=== PATIENT | male | born 1965 | race Caucasian/White ===

== ENCOUNTER 2016-07-27 13:10 | Emergency (ER) | payer MEDICARE ==
[~2016-07-27] VITALS: Ht 188 cm; Wt 246.0 kg
[2016-07-27 13:15] VITALS: BP 234/138; PULSE 92; RESP 20; TEMP 98.2; O2SAT 93
[2016-07-27] MEDS ORDERED: CYMB60CA PO (13:32)
[2016-07-27] MEDS ORDERED: LEXA20TA PO (13:32)
[2016-07-27] MEDS ORDERED: ENAL20TA PO (13:32)
[2016-07-27] MEDS ORDERED: GABA800T PO (13:32)
[2016-07-27] MEDS ORDERED: METO50TA PO (13:32)
[2016-07-27] MEDS ORDERED: ASPI1TAB69 PO (13:32)
[2016-07-27] MEDS ORDERED: HORI600T PO (13:32)
[2016-07-27 13:33] VITALS: BP 160/104; PULSE 80; RESP 20; O2SAT 94
--- NOTE | 2016-07-27 13:43 | PD ---
HPI Chief Complaint: Injury Time Seen by Provider: 13:39 Travel History International Travel<30 days: No Contact w/Intl Traveler<30days: No Traveled to known affect area: No History of Present Illness HPI Patient presents with complaints of left shoulder pain after a fall. Patient reports tripping and falling to his left shoulder. Denies any head trauma or loss of consciousness. PFSH Past Medical History Atrial Fibrillation: Yes Depression: Yes Congestive Heart Failure: Yes Diminished Hearing: No Hypertension: Yes Neurologic: Yes (NEUROPATHY) Influenza Vaccination: Yes ?: Not Past Surgical History Cardiac Surgery: Yes (CARDIOVERSION) Cholecystectomy: Yes Tonsillectomy: Yes Social History Alcohol Use: Yes Tobacco Use: No Allergies-Medications (Allergen,Severity, Reaction): Coded Allergies: Clindamycin (Verified Allergy, Unknown, 07/27/16) Erythromycin (Verified Allergy, Unknown, 07/27/16) Red Dyes - Various (Verified Allergy, Unknown, 07/27/16) Reported Meds & Prescriptions Reported Meds & Active Scripts Active Reported Lexapro (Escitalopram Oxalate) 20 Mg Tab 20 Mg PO DAILY Horizant ER (Gabapentin ER) 600 Mg Armando 1,600 Mg PO 1700 PRN Metoprolol Tartrate 50 Mg Tab 50 Mg PO BID Enalapril (Enalapril Maleate) 20 Mg Tab 20 Mg PO BID Aspirin 81 Mg Tabdr 81 Mg PO DAILY Cymbalta DR (Duloxetine HCl) 60 Mg Capdr 60 Mg PO DAILY Gabapentin 800 Mg Tab 3,200 Mg PO HS Review of Systems General / Constitutional: No: Fever Eyes: No: Visual changes HENT: No: Headaches Cardiovascular: No: Chest Pain or Discomfort Respiratory: No: Shortness of Breath Gastrointestinal: No: Abdominal Pain Genitourinary: No: Dysuria Musculoskeletal: No: Pain Skin: No Rash Neurologic: No: Weakness Psychiatric: No: Depression Endocrine: No: Polydipsia Hematologic/Lymphatic: No: Easy Bruising Physical Exam Narrative GENERAL: Well-nourished, well-developed patient. SKIN: Warm and dry. HEAD: Normocephalic. EYES: No scleral icterus. No injection or drainage. NECK: Supple, trachea midline. No JVD or lymphadenopathy. CARDIOVASCULAR: Regular rate and rhythm without murmurs, gallops, or rubs. RESPIRATORY: Breath sounds equal bilaterally. No accessory muscle use. GASTROINTESTINAL: Abdomen soft, non-tender, nondistended. MUSCULOSKELETAL: No cyanosis, or edema. BACK: Nontender without obvious deformity. No CVA tenderness. Examination left shoulder reveals no crepitus no erythema edema or bony abnormalities, discomfort with elevation over 90 Data Data Last Documented VS Vital Signs Date Time Temp Pulse Resp B/P Pulse Ox O2 Delivery O2 Flow Rate FiO2 07/27/16 13:33 80 20 160/104 94 Room Air 07/27/16 13:15 98.2 Orders Shoulder, Limited(2vws) (07/27/16 ) MDM Medical Decision Making Medical Screen Exam Complete: Yes Emergency Medical Condition: Yes Differential Diagnosis Left shoulder strain, musculoskeletal pain, fall risk Narrative Course Assessment and plan discussed with patient and at bedside. Discussed findings of the x-ray. Patient opted for observation. Diagnosis Primary Impression: Contusion of left shoulder Qualified Code: S40.012A - Contusion of left shoulder, initial encounter Patient Instructions: General Instructions Additional Instructions: Sling for comfort, pain medication as prescribed, follow-up with PCP, his symptoms persist consider CT of the shoulder Med/Other Pt SpecificInfo: Prescription(s) given Disposition: 01 DISCHARGE HOME Condition: Good Antonio Allen MD Jul 27, 2016 13:42
--- NOTE | 2016-07-27 15:41 | RADHPO ---
EXAM DATE/TIME: 07/27/2016 14:37 [facility] COMPARISON: No previous studies available for comparison. INDICATIONS : Fell, left shoulder pain MEDICAL HISTORY : Congestive heart failure. a fib SURGICAL HISTORY : None. ENCOUNTER: Initial ACUITY: 1 day PAIN SCORE: 9/10 LOCATION: Left shoulder FINDINGS: There is a lucency in the bony glenoid, possibly a fracture. This may need to be confirmed with CT. P roximal humerus appears intact. A.c. joint intact. CONCLUSION: 1. Lucency in the glenoid on the AP view. Cannot exclude a nondisplaced fracture. This would be lenore r evaluated with CT. Errol Iyer MD on July 27, 2016 at 15:37 Board Certified Radiologist. This report was verified electronically.
[2016-07-27] MEDS ORDERED: HYDR-3516 PO (15:53)
== END 2016-07-27 16:03 | disposition home or self-care (01) ==
LOC: PHED 13:10
DX: S40.012A Contusion of left shoulder, initial encounter (principal); I48.91 Unspecified atrial fibrillation; I50.9 Heart failure, unspecified; I10 Essential (primary) hypertension; W18.09XA Striking against other object with subsequent fall, initial encounter; Y93.9 Activity, unspecified; Y92.9 Unspecified place or not applicable; Y99.8 Other external cause status
CPT/HCPCS: 73030; 99283

== ENCOUNTER 2017-01-14 11:04 | Inpatient (IN) | payer OTHER, MEDICARE ==
[2017-01-14] VITALS (7 sets, daily range): BP systolic 116–203; BP diastolic 65–123; PULSE 66–108; RESP 18–22; TEMP 96.3–98.6; O2SAT 85–98
[~2017-01-14] VITALS: Ht 188 cm; Wt 181.4 kg
[~2017-01-14 11:04] MED LIST: ASPI1TAB69 PO; CYMB60CA PO; ENAL20TA PO; GABA800T PO; HORI600T PO; HYDR-3516 PO; LEXA20TA PO; METO50TA PO
[2017-01-14] MEDS ORDERED: GABA600T PO (11:25)
[2017-01-14] MEDS ORDERED: METO100T9 PO (11:25)
[2017-01-14] MEDS ORDERED: OXYC1TAB35 PO (11:25)
[2017-01-14] MEDS ORDERED: ASPI81CH37 CHEW (11:25)
[2017-01-14] MEDS ORDERED: DULO1CAP3 PO (11:25)
--- NOTE | 2017-01-14 11:36 | PD ---
HPI Chief Complaint: Respiratory Symptoms Time Seen by Provider: 11:32 Travel History International Travel<30 days: No Contact w/Intl Traveler<30days: No Traveled to known affect area: No History of Present Illness HPI 51-year-old male with history of hypertension, CHF, A. fib, smoking, asthma, sleep apnea on BiPAP, presents to the ER today because he has had shortness of breath starting on Thursday, worse with laying down, nausea. He is to chest pain , fevers, or any other symptoms. He has not been taking his water pills at least for several months. Modifying Factors: Worse with laying down Associated Signs & Symptoms: Shortness of breath Risk Factors: CHF history PFSH Past Medical History Atrial Fibrillation: Yes Depression: Yes Cardiovascular Problems: Yes (H/O cardioversion) Congestive Heart Failure: Yes Diminished Hearing: No Hypertension: Yes Neurologic: Yes (NEUROPATHY) Tetanus Vaccination: Unknown Influenza Vaccination: Yes Past Surgical History Cardiac Surgery: Yes (CARDIOVERSION) Cholecystectomy: Yes Tonsillectomy: Yes Social History Alcohol Use: No Tobacco Use: Yes (1-2 cigarettes/day) Substance Use: Yes (Marijuana) Allergies-Medications (Allergen,Severity, Reaction): Coded Allergies: clindamycin (Unverified Allergy, Severe, Hives, 01/14/17) erythromycin base (Unverified Allergy, Severe, Hives, 01/14/17) red dye (Unverified Allergy, Unknown, 01/14/17) Reported Meds & Prescriptions Reported Meds & Active Scripts Active Reported Duloxetine DR (Duloxetine HCl) 60 Mg Capdr 60 Mg PO BID Oxycodone-Acetaminophen 7.5-325 mg Tab 1 Tab PO BID Aspirin Low Dose (Aspirin) 81 Mg Chew 81 Mg CHEW DAILY Metoprolol Succinate ER 24 HR (Metoprolol Succinate) 100 Mg Tab 100 Mg PO BID Gabapentin 600 Mg Tab 1,200 Mg PO BID Lexapro (Escitalopram Oxalate) 20 Mg Tab 20 Mg PO DAILY Enalapril (Enalapril Maleate) 20 Mg Tab 10 Mg PO BID Review of Systems Except as stated in HPI: all other systems reviewed are Neg Physical Exam Narrative GENERAL: Well-developed morbidly obese middle age white male patient currently in mild respiratory distress. Awake and oriented 3. SKIN: Focused skin assessment warm/dry. HEAD: Atraumatic. Normocephalic. EYES: Pupils equal and round. No scleral icterus. No injection or drainage. ENT: No nasal bleeding or discharge. Mucous membranes pink and moist. NECK: Trachea midline. No JVD. CARDIOVASCULAR: Regular rate and rhythm. No murmur appreciated. RESPIRATORY: Mild accessory muscle use. Decreased throughout without wheezing. Breath sounds equal bilaterally. GASTROINTESTINAL: Abdomen soft, non-tender, nondistended. Hepatic and splenic margins not palpable. MUSCULOSKELETAL: No obvious deformities. No clubbing. No cyanosis. No edema. NEUROLOGICAL: Awake and alert. No obvious cranial nerve deficits. Motor grossly within normal limits. Normal speech. PSYCHIATRIC: Appropriate mood and affect; insight and judgment normal. Data Data Last Documented VS Vital Signs Date Time Temp Pulse Resp B/P (MAP) Pulse Ox O2 Delivery O2 Flow Rate FiO2 01/14/17 13:35 94 18 194/123 (146) 95 Nasal Cannula 4.00 01/14/17 11:15 98.6 Orders Orders Complete Blood Count With Diff (01/14/17 11:32) Comprehensive Metabolic Panel (01/14/17 11:32) B-Type Natriuretic Peptide (01/14/17 11:32) Act Partial Throm Time (Ptt) (01/14/17 11:32) Prothrombin Time / Inr (Pt) (01/14/17 11:32) Ckmb (Isoenzyme) Profile (01/14/17 11:32) Troponin I (01/14/17 11:32) Iv Access Insert/Monitor (01/14/17 11:32) Ecg Monitoring (01/14/17 11:32) Oximetry (01/14/17 11:32) Oxygen Administration (01/14/17 11:32) Chest, Single Ap (01/14/17 11:32) Sodium Chloride 0.9% Flush (Ns Flush) (01/14/17 11:45) Nitroglycerin 2% Oint (Nitroglycerin 2% (01/14/17 11:45) Furosemide Inj (Lasix Inj) (01/14/17 12:45) Clonidine (Catapres) (01/14/17 14:15) Admit Order (Ed Use Only) (01/14/17 14:45) Labs Laboratory Tests Test 01/14/17 11:55 01/14/17 12:54 White Blood Count 10.6 TH/MM3 Red Blood Count 5.11 MIL/MM3 Hemoglobin 13.6 GM/DL Hematocrit 40.8 % Mean Corpuscular Volume 79.8 FL Mean Corpuscular Hemoglobin 26.6 PG Mean Corpuscular Hemoglobin Concent 33.4 % Red Cell Distribution Width 14.7 % Platelet Count 157 TH/MM3 Mean Platelet Volume 10.2 FL Neutrophils (%) (Auto) 79.0 % Lymphocytes (%) (Auto) 11.0 % Monocytes (%) (Auto) 4.0 % Eosinophils (%) (Auto) 2.9 % Basophils (%) (Auto) 3.1 % Neutrophils # (Auto) 8.4 TH/MM3 Lymphocytes # (Auto) 1.2 TH/MM3 Monocytes # (Auto) 0.4 TH/MM3 Eosinophils # (Auto) 0.3 TH/MM3 Basophils # (Auto) 0.3 TH/MM3 CBC Comment DIFF FINAL Differential Comment B-Type Natriuretic Peptide 424 PG/ML Prothrombin Time 12.4 SEC Prothromb Time International Ratio 1.1 RATIO Activated Partial Thromboplast Time 31.9 SEC Blood Urea Nitrogen 19 MG/DL Creatinine 1.40 MG/DL Random Glucose 110 MG/DL Total Protein 8.4 GM/DL Albumin 3.7 GM/DL Calcium Level 8.6 MG/DL Alkaline Phosphatase 83 U/L Aspartate Amino Transf (AST/SGOT) 17 U/L Alanine Aminotransferase (ALT/SGPT) 16 U/L Total Bilirubin 1.7 MG/DL Sodium Level 141 MEQ/L Potassium Level 3.7 MEQ/L Chloride Level 105 MEQ/L Carbon Dioxide Level 27.6 MEQ/L Anion Gap 8 MEQ/L Estimat Glomerular Filtration Rate 53 ML/MIN Total Creatine Kinase 59 U/L Troponin I LESS THAN 0.02 NG/ML MDM Medical Decision Making Medical Screen Exam Complete: Yes Emergency Medical Condition: Yes Medical Record Reviewed: Yes Interpretation(s) EKG shows A. fib at a rate of 96 bpm with no signs of acute ST-T changes. Laboratory Tests Test 01/14/17 11:55 01/14/17 12:54 Mean Corpuscular Volume 79.8 FL (80.0-100.0) Mean Corpuscular Hemoglobin 26.6 PG (27.0-34.0) Neutrophils (%) (Auto) 79.0 % (16.0-70.0) Basophils (%) (Auto) 3.1 % (0.0-2.0) Neutrophils # (Auto) 8.4 TH/MM3 (1.8-7.7) Basophils # (Auto) 0.3 TH/MM3 (0-0.2) B-Type Natriuretic Peptide 424 PG/ML (0-100) Prothrombin Time 12.4 SEC (9.8-11.6) Activated Partial Thromboplast Time 31.9 SEC (24.3-30.1) Blood Urea Nitrogen 19 MG/DL (7-18) Creatinine 1.40 MG/DL (0.60-1.30) Random Glucose 110 MG/DL (74-106) Total Protein 8.4 GM/DL (6.4-8.2) Total Bilirubin 1.7 MG/DL (0.2-1.0) Estimat Glomerular Filtration Rate 53 ML/MIN (>89) Troponin I LESS THAN 0.02 NG/ML Last 24 hours Impressions Chest X-Ray 01/14/17 1132 Signed Impressions: Service Date/Time: Saturday, January 14, 2017 11:35 - CONCLUSION: 1. Cardiomegaly. 2. Minimal central pulmonary vascular congestion. 3. No acute focal pulmonary infiltrate to suggest pneumonia. Duncan Macario MD Differential Diagnosis Shortness of breath: Dysrhythmias versus CHF exacerbation versus asthma attack versus pneumonia versus anxiety attack Narrative Course Chest x-ray shows signs of vascular congestion. Nitroglycerin and Lasix was given in the ER. Patient had mild improvements but his blood pressure remains fairly elevated. At this point, I suspect that the hypertension is also an issue. Patient admits that he has not been taking his medications regularly because he has been trying to save money. At this point, patient was given clonidine and my plan would be to admit him for further treatment. Case is discussed with Dr. Nino for admission. Diagnosis Primary Impression: Hypertensive urgency Additional Impression: CHF exacerbation Admitting Information Admitting Physician Requests: Admit Genaro Shay MD Jan 14, 2017 11:36
[2017-01-14] MEDS ORDERED: NITROGLYCERIN 2% OINT 1 GM PACKET TOPICAL ONE (11:45)
[2017-01-14] MEDS ORDERED: SODIUM CHLORIDE 0.9% FLUSH 10 ML FLUSH IVF PRN (11:45)
[2017-01-14 12:08] LABS: AUTOMATED NEUTROPHIL # 8.4 TH/MM3 (1.8-7.7); BASOPHIL # 0.3 TH/MM3 (0-0.2); BASOPHIL % 3.1 % (0.0-2.0); EOSINOPHIL # 0.3 TH/MM3 (0-0.4); EOSINOPHIL % 2.9 % (0.0-4.0); HEMATOCRIT 40.8 % (39.0-51.0); LYMPHOCYTE # 1.2 TH/MM3 (1.0-4.8); MEAN CELL VOLUME 79.8 FL (80.0-100.0); MEAN CORPUSCULAR HEMOGLOBIN 26.6 PG (27.0-34.0); MEAN CORPUSCULAR HGB CONC 33.4 % (32.0-36.0); PLATELET COUNT 157 TH/MM3 (150-450); RED BLOOD COUNT 5.11 MIL/MM3 (4.50-5.90); RED CELL DISTRIBUTION WIDTH 14.7 % (11.6-17.2); WHITE BLOOD COUNT 10.6 TH/MM3 (4.0-11.0)
[2017-01-14 12:19] LABS: HEMO FLAGS DIFF FINAL
--- NOTE | 2017-01-14 12:23 | RADRPT ---
EXAM DATE/TIME: 01/14/2017 11:35 [facility] COMPARISON: No previous studies available for comparison. INDICATIONS : Short of breath. MEDICAL HISTORY : Congestive heart failure. Afib SURGICAL HISTORY : None. ENCOUNTER: Initial ACUITY: 1 day PAIN SCORE: 0/10 LOCATION: Bilateral chest FINDINGS: The heart is enlarged. Minimal pulmonary vascular congestion is noted. No focal alveolar consolidat ion is noted. CONCLUSION: 1. Cardiomegaly. 2. Minimal central pulmonary vascular congestion. 3. No acute focal pulmonary infiltrate to suggest pneumonia. Duncan Macario MD on January 14, 2017 at 12:13 Board Certified Radiologist. This report was verified electronically.
[2017-01-14] MEDS ORDERED: FUROSEMIDE 40 MG/4 ML VIAL IV PUSH ONE (12:45)
[2017-01-14 13:44] LABS: CHLORIDE 105 MEQ/L (98-107); POTASSIUM 3.7 MEQ/L (3.5-5.1); SODIUM (NA) 141 MEQ/L (136-145)
[2017-01-14 13:48] LABS: APTT (PATIENT) 31.9 SEC (24.3-30.1); INTERNATIONAL NORMALIZED RATIO 1.1 RATIO; PROTHROMBIN TIME - PATIENT 12.4 SEC (9.8-11.6)
[2017-01-14 13:49] LABS: ANION GAP 8 MEQ/L (5-15); BICARBONATE 27.6 MEQ/L (21.0-32.0)
[2017-01-14 13:50] LABS: BLOOD UREA NITROGEN 19 MG/DL (7-18)
[2017-01-14 13:52] LABS: ALT (GPT) 16 U/L (12-78)
[2017-01-14 13:53] LABS: AST (GOT) 17 U/L (15-37); GLOMERULAR FILTRATION RATE 53 ML/MIN (>89)
[2017-01-14 13:54] LABS: TOTAL BILIRUBIN ADULT 1.7 MG/DL (0.2-1.0)
[2017-01-14 13:55] LABS: ALKALINE PHOSPHATASE 83 U/L (45-117)
[2017-01-14 13:56] LABS: CREATINE KINASE 59 U/L (39-308)
[2017-01-14] MEDS ORDERED: cloNIDine HCL 0.2 MG TAB PO ONE (14:15)
[2017-01-14] MEDS ORDERED: BISACODYL 10 MG SUPP RECTAL PRN (16:45)
[2017-01-14] MEDS ORDERED: NALOXONE HCL 0.4 MG/ML AMP IV PUSH PRN (16:45)
[2017-01-14] MEDS ORDERED: LACTULOSE SYRUP 20 GM/30 ML CUP PO PRN (16:45)
[2017-01-14] MEDS ORDERED: ACETAMINOPHEN 325 MG TAB PO PRN (16:45)
[2017-01-14] MEDS ORDERED: SODIUM CHLORIDE 0.9% FLUSH 10 ML FLUSH IV FLUSH PRN (16:45)
[2017-01-14] MEDS ORDERED: MAGNESIUM HYDROXIDE SUSP 30 ML CUP PO PRN (16:45)
[2017-01-14] MEDS ORDERED: SENNOSIDES 8.6 MG TAB PO PRN (16:45)
[2017-01-14] MEDS ORDERED: ONDANSETRON HCL 4 MG/2 ML VIAL IVP PRN (16:45)
--- NOTE | 2017-01-14 17:03 | HHI.HP ---
[facility] Primary Care Physician No Primary Care Physician Admission Diagnosis CHF exacerbation/hypertensive urgency Diagnoses: (1) Hypertensive urgency Diagnosis: Principal (2) CHF exacerbation Diagnosis: Principal (3) Atrial fibrillation Diagnosis: Secondary Chief Complaint: Shortness of breath Travel History International Travel<30 Days: No Contact w/Intl Traveler <30 Da: No Traveled to Known Affected Are: No History of Present Illness Written by Johnnie Lei, acting as scribe for Dr. Nino on 01/14/17 at 16:53. 51-year-old male with known history of hypertension, congestive heart failure, chronic back pain, chronic atrial fibrillation who presented to hospital because of shortness of breath. Patient states that he started developing shortness of breath for the last 2 days. Patient states that he has had a nonproductive cough, significant dyspnea on exertion, denies any chest pain, nausea, vomiting, diaphoresis. Patient has been noncompliant with his medications because of financial reasons. Medications that he is supposed to take twice a day he is only been taken once a day. He has been having worsening shortness of breath, he does fall quite frequently at home. He does have chronic atrial fibrillation and chads 2, as indicated by the patient that his previous primary care doctor states that due to his recurrent falls that he' ll be anticoagulated on aspirin, that too high risk for any Coumadin. Because the patient's respiratory status did not improve he came to emergency department and patient was found to be in hypertensive urgency with blood pressure 234/138. Patient was started on nitroglycerin, he was given clonidine and Lasix with improvement of his blood pressure. Further studies indicate patient has acute congestive heart failure with chest x-ray showing central vascular congestion, elevated BNP. Patient blood pressure still very labile. It was recommended by the ER physician that the patient should be observed in the hospital for further evaluation and management. Review of Systems Respiratory: COMPLAINS OF: Shortness of breath Musculoskeletal: COMPLAINS OF: Back pain Neurologic: COMPLAINS OF: Poor Balance Except as stated in HPI: all other systems reviewed are Neg Past Family Social History Past Medical History Hypertension Congestive heart failure Chronic atrial fibrillation Chronic back pain Past Surgical History Cardiac catheterization Cardioversion Tonsillectomy Cholecystectomy Reported Medications Reported Meds & Active Scripts Active Reported Duloxetine DR (Duloxetine HCl) 60 Mg Capdr 60 Mg PO BID Oxycodone-Acetaminophen 7.5-325 mg Tab 1 Tab PO BID Aspirin Low Dose (Aspirin) 81 Mg Chew 81 Mg CHEW DAILY Metoprolol Succinate ER 24 HR (Metoprolol Succinate) 100 Mg Tab 100 Mg PO BID Gabapentin 600 Mg Tab 1,200 Mg PO BID Lexapro (Escitalopram Oxalate) 20 Mg Tab 20 Mg PO DAILY Enalapril (Enalapril Maleate) 20 Mg Tab 10 Mg PO BID Allergies: Coded Allergies: clindamycin (Unverified Allergy, Severe, Hives, 01/14/17) erythromycin base (Unverified Allergy, Severe, Hives, 01/14/17) red dye (Unverified Allergy, Unknown, 01/14/17) Family History Reviewed is significant for mother having heart disease, requiring 2 open heart surgeries and multiple stents Social History Patient states that he quit smoking 2 years ago, however he does smoke a couple cigarettes every once in a while. Patient had been smoking up to a pack a cigarettes a day since he was a teenager. Denies any alcohol, does use marijuana for "pain control" Physical Exam Vital Signs Vital Signs Date Time Temp Pulse Resp B/P (MAP) Pulse Ox O2 Delivery O2 Flow Rate FiO2 01/14/17 15:25 87 18 138/109 (119) 96 Nasal Cannula 4.00 01/14/17 15:25 87 18 96 Nasal Cannula 4.00 01/14/17 13:35 94 18 194/123 (146) 95 Nasal Cannula 4.00 01/14/17 13:35 97 Nasal Cannula 4.00 01/14/17 12:32 89 22 159/110 (126) 94 Nasal Cannula 2.00 01/14/17 11:55 96 Nasal Cannula 2.00 01/14/17 11:15 108 22 Nasal Cannula 2.00 01/14/17 11:15 98.6 88 22 203/123 (149) 95 Physical Exam GENERAL: Well-developed, morbid obesity with BMI 67.9, in no acute distress. alert and orientated HEENT: Head is normocephalic without any lesions or masses noted. Facial features are symmetric. Eyes: Pupils equal round reactive to light. Extraocular muscles are intact. Conjunctivae were clear. Oropharyngeal: Pharynx without any erythema edema. Tongue is midline without deviation. Buccal mucosa is moist without any masses or lesions NECK: Supple without any masses. Trachea midline no deviation. No JVD, no bruits are appreciated CARDIAC: Regular rhythm, regular rate. S1/S2 are heard. No murmurs gallops or rubs. LUNGS: Clear to auscultation bilaterally. No wheeze, rhonchi or rales. No use of accessory muscles on inspiration or expiration. ABDOMEN: Soft, nontender. Nondistended. Bowel sounds heard in all 4 quadrants. No organomegaly or masses. Negative rebound, negative guarding EXTREMITIES: 2+ edema in bilateral lower extremities, pulses are equal bilaterally. No cyanosis or clubbing NEUROLOGY: Mood and affect appear appropriate. Cranial nerves II through XII grossly intact. Muscle strength 5/5 in upper and lower extremities bilaterally. Deep tendon reflexes are 2+ in upper and lower extremities bilaterally. Laboratory Laboratory Tests Test 01/14/17 11:55 01/14/17 12:54 White Blood Count 10.6 Red Blood Count 5.11 Hemoglobin 13.6 Hematocrit 40.8 Mean Corpuscular Volume 79.8 Mean Corpuscular Hemoglobin 26.6 Mean Corpuscular Hemoglobin Concent 33.4 Red Cell Distribution Width 14.7 Platelet Count 157 Mean Platelet Volume 10.2 Neutrophils (%) (Auto) 79.0 Lymphocytes (%) (Auto) 11.0 Monocytes (%) (Auto) 4.0 Eosinophils (%) (Auto) 2.9 Basophils (%) (Auto) 3.1 Neutrophils # (Auto) 8.4 Lymphocytes # (Auto) 1.2 Monocytes # (Auto) 0.4 Eosinophils # (Auto) 0.3 Basophils # (Auto) 0.3 CBC Comment DIFF FINAL Differential Comment B-Type Natriuretic Peptide 424 Prothrombin Time 12.4 Prothromb Time International Ratio 1.1 Activated Partial Thromboplast Time 31.9 Blood Urea Nitrogen 19 Creatinine 1.40 Random Glucose 110 Total Protein 8.4 Albumin 3.7 Calcium Level 8.6 Alkaline Phosphatase 83 Aspartate Amino Transf (AST/SGOT) 17 Alanine Aminotransferase (ALT/SGPT) 16 Total Bilirubin 1.7 Sodium Level 141 Potassium Level 3.7 Chloride Level 105 Carbon Dioxide Level 27.6 Anion Gap 8 Estimat Glomerular Filtration Rate 53 Total Creatine Kinase 59 Troponin I LESS THAN 0.02 Result Diagram: 01/14/17 1155 01/14/17 1254 Imaging Last Impressions Chest X-Ray 01/14/17 1132 Signed Impressions: Service Date/Time: Saturday, January 14, 2017 11:35 - CONCLUSION: 1. Cardiomegaly. 2. Minimal central pulmonary vascular congestion. 3. No acute focal pulmonary infiltrate to suggest pneumonia. MD Danial Ku VTE Risk Assessment Caprini VTE Risk Assessment: Mod/High Risk (score >= 2) Caprini Risk Assessment Model Point Value = 1 Point Value = 2 Point Value = 3 Point Value = 5 Age 41-60 Minor surgery BMI > 25 kg/m2 Swollen legs Varicose veins or History of unexplained or recurrent spontaneous Oral contraceptives or hormone replacement Sepsis (< 1 month) Serious lung disease, including pneumonia (< 1 month) Abnormal pulmonary function Acute myocardial infarction Congestive heart failure (< 1 month) History of inflammatory bowel disease Medical patient at bed rest Age 61-74 Arthroscopic surgery Major open surgery (> 45 min) Laparoscopic surgery (> 45 min) Malignancy Confined to bed (> 72 hours) Immobilizing plaster cast Central venous access Age >= 75 History of VTE Family history of VTE Factor V Leiden Prothrombin [id number] Lupus anticoagulant Anticardiolipin antibodies Elevated serum homocysteine Heparin-induced thrombocytopenia Other congenital or acquired thrombophilia Stroke (< 1 month) Elective arthroplasty Hip, pelvis, or leg fracture Acute spinal cord injury (< 1 month) Prophylaxis Regimen Total Risk Factor Score Risk Level Prophylaxis Regimen 0-1 Low Early ambulation 2 Moderate Order ONE of the following: *Sequential Compression Device (SCD) *Heparin 5000 units SQ BID 3-4 Higher Order ONE of the following medications: *Heparin 5000 units SQ TID *Enoxaparin/Lovenox 40 mg SQ daily (WT < 150 kg, CrCl > 30 mL/min) *Enoxaparin/Lovenox 30 mg SQ daily (WT < 150 kg, CrCl > 10-29 mL/min) *Enoxaparin/Lovenox 30 mg SQ BID (WT < 150 kg, CrCl > 30 mL/min) AND/OR *Sequential Compression Device (SCD) 5 or more Highest Order ONE of the following medications: *Heparin 5000 units SQ TID (Preferred with Epidurals) *Enoxaparin/Lovenox 40 mg SQ daily (WT < 150 kg, CrCl > 30 mL/min) *Enoxaparin/Lovenox 30 mg SQ daily (WT < 150 kg, CrCl > 10-29 mL/min) *Enoxaparin/Lovenox 30 mg SQ BID (WT < 150 kg, CrCl > 30 mL/min) AND *Sequential Compression Device (SCD) Assessment and Plan Problem List: (1) Hypertensive urgency ICD Code: I16.0 - Hypertensive urgency Status: Acute (2) CHF exacerbation ICD Code: I50.9 - Heart failure, unspecified Status: Acute (3) Atrial fibrillation ICD Code: I48.91 - Unspecified atrial fibrillation Assessment and Plan Hypertensive urgency, complicated by congestive heart failure, renal insufficiency Patient does have history of hypertension, blood pressure worse likely secondary to noncompliance with medications Will resume patient's home medications Clonidine/Apresoline as needed Acute congestive heart failure Patient does have chronic congestive heart failure, however we do not know if it is systolic versus diastolic, clinical findings of edema, BNP, chest x- ray with central pulmonary vascular congestion Will continue Lasix 40 mg IV twice daily Strict input and output Continue FRIDA inhibitor, beta natalee Obtain echocardiogram Continue to trend cardiac enzymes and EKGs Azotemia, unknown chronicity Could be from chronic kidney disease versus acute injury from hypertensive urgency Continue monitor renal function Chronic Atrial fibrillation, rate controlled Continue home medication we'll continue aspirin for anticoagulation. Patient is a high risk for falls DVT prevention Subcutaneous heparin Sequential compression devices This note was transcribed by mikayla Lei. I, Dr. Chacorta Méndez personally performed the history, physical exam, and medical decision making; and confirmed the accuracy of the information in the transcribed note. Authenticated by Dr. Chacorta Méndez on 01/14/17 at 17:09 Discussed Condition With Patient, at bedside, ER physician, nursing staff Physician Certification 2 Midnight Certification Type: Admission for Inpatient Services Order for Inpatient Services The services are ordered in accordance with Medicare regulations or non- Medicare payer requirements, as applicable. In the case of services not specified as inpatient-only, they are appropriately provided as inpatient services in accordance with the 2-midnight benchmark. Estimated LOS (days): 2 days is the estimated time the patient will need to remain in the hospital, assuming treatment plan goals are met and no additional complications. Post-Hospital Plan: Not yet determined Johnnie Lei Jan 14, 2017 17:03 Chacorta Macias MD Jan 14, 2017 17:11
[2017-01-14] MEDS ORDERED: cloNIDine HCL 0.1 MG TAB PO PRN (17:15)
[2017-01-14] MEDS ORDERED: hydrALAZINE HCL 20 MG/ML VIAL IV PUSH PRN (17:15)
[2017-01-14 17:24] LABS: CREATINE KINASE 61 U/L (39-308)
[2017-01-14] MEDS: FUROSEMIDE 40 MG/4 ML VIAL IV PUSH SCH (18:34)
[2017-01-14] MEDS: HEPARIN SODIUM - SQ 10,000 UNITS/ML VIAL SQ SCH ×2 (18:35→20:50)
[2017-01-14] MEDS: DULoxetine HCl DR 60 MG CAP PO SCH (20:49)
[2017-01-14] MEDS: SODIUM CHLORIDE 0.9% FLUSH 10 ML FLUSH IV FLUSH SCH (20:49)
[2017-01-14] MEDS: GABAPENTIN 300 MG CAP PO SCH (20:49)
[2017-01-14] MEDS: METOPROLOL SUCCINATE 50 MG EXTENDED RELEASE TAB PO SCH (20:49)
[2017-01-14] MEDS: DOCUSATE SODIUM 50 MG/SENNA 8.6 MG TAB PO SCH (20:49)
--- NOTE | 2017-01-14 21:00 | EKG ---
Date Performed: 01/14/2017 Time Performed: 11:24:20 PTAGE: 51 years EKG: ATRIAL FIBRILLATION MODERATE INTRAVENTRICULAR CONDUCTION DELAY ABNORMAL RHYTHM ECG NO PREVIOUS TRACING DOCTOR: Monica Elaine Interpretating Date/Time 01/14/2017 21:00:27
[2017-01-14 23:00] LABS: CREATINE KINASE 64 U/L (39-308)
[2017-01-15] VITALS (8 sets, daily range): BP systolic 116–166; BP diastolic 64–116; PULSE 71–91; RESP 20–24; TEMP 97–98.4; O2SAT 93–98
[2017-01-15] MEDS: HEPARIN SODIUM - SQ 10,000 UNITS/ML VIAL SQ SCH ×3 (05:16→21:32)
[2017-01-15 06:54] LABS: AUTOMATED NEUTROPHIL # 8.7 TH/MM3 (1.8-7.7); BASOPHIL % 0.1 % (0.0-2.0); EOSINOPHIL # 0.4 TH/MM3 (0-0.4); EOSINOPHIL % 3.1 % (0.0-4.0); HEMO FLAGS DIFF FINAL; LYMPHOCYTE # 1.9 TH/MM3 (1.0-4.8); MEAN CELL VOLUME 80.9 FL (80.0-100.0); MEAN CORPUSCULAR HEMOGLOBIN 26.7 PG (27.0-34.0); MONO % 5.4 % (0.0-8.0); NEUT % 75.4 % (16.0-70.0); PLATELET COUNT 150 TH/MM3 (150-450); RED BLOOD COUNT 4.95 MIL/MM3 (4.50-5.90); RED CELL DISTRIBUTION WIDTH 14.3 % (11.6-17.2); WHITE BLOOD COUNT 11.6 TH/MM3 (4.0-11.0)
[2017-01-15 06:58] LABS: CHLORIDE 103 MEQ/L (98-107); POTASSIUM 3.4 MEQ/L (3.5-5.1); SODIUM (NA) 141 MEQ/L (136-145)
[2017-01-15 07:02] LABS: ANION GAP 8 MEQ/L (5-15); BICARBONATE 30.1 MEQ/L (21.0-32.0); BLOOD UREA NITROGEN 25 MG/DL (7-18)
[2017-01-15 07:05] LABS: ALT (GPT) 16 U/L (12-78); AST (GOT) 16 U/L (15-37); GLOMERULAR FILTRATION RATE 46 ML/MIN (>89)
[2017-01-15 07:07] LABS: TOTAL BILIRUBIN ADULT 1.4 MG/DL (0.2-1.0)
[2017-01-15 07:08] LABS: ALKALINE PHOSPHATASE 78 U/L (45-117)
[2017-01-15] MEDS: METOPROLOL SUCCINATE 50 MG EXTENDED RELEASE TAB PO SCH ×2 (08:09→21:33)
[2017-01-15] MEDS: GABAPENTIN 300 MG CAP PO SCH ×2 (08:09→21:32)
[2017-01-15] MEDS: ASPIRIN 81 MG CHEW TAB CHEW SCH (08:10)
[2017-01-15] MEDS: ESCITALOPRAM OXALATE 20 MG TAB PO SCH (08:10)
[2017-01-15] MEDS: DOCUSATE SODIUM 50 MG/SENNA 8.6 MG TAB PO SCH ×2 (08:10→21:32)
[2017-01-15] MEDS: DULoxetine HCl DR 60 MG CAP PO SCH ×2 (08:10→21:32)
[2017-01-15] MEDS: SODIUM CHLORIDE 0.9% FLUSH 10 ML FLUSH IV FLUSH SCH ×2 (08:11→21:32)
[2017-01-15] MEDS: FUROSEMIDE 40 MG/4 ML VIAL IV PUSH SCH (08:11)
[2017-01-15] MEDS ORDERED: BARIATRIC ROLLA1 MIS (10:48)
[2017-01-15] MEDS ORDERED: POTASSIUM CHLORIDE 10 MEQ CONTROLLED RELEASE TAB PO ONE (11:00)
[2017-01-15] MEDS: DOXAZOSIN MESYLATE 2 MG TAB PO SCH (13:05)
[2017-01-15] MEDS: ACETAMINOPHEN/HYDROcodone 325 MG/7.5 MG TAB PO PRN ×2 (14:11→21:33)
--- NOTE | 2017-01-15 15:02 | HHI.PR ---
Subjective Remarks Deferred entry - patient seen at 11:45 am BP still elevated into the 160's systolic Patient states feels better denies cp/sob denies fevers/chills Objective Vitals Vital Signs Date Time Temp Pulse Resp B/P (MAP) Pulse Ox O2 Delivery O2 Flow Rate FiO2 01/15/17 12:00 97.6 85 20 128/92 (104) 97 01/15/17 08:20 95 Nasal Cannula 2.00 01/15/17 08:00 97.4 89 22 166/100 (122) 95 01/15/17 04:00 98.4 85 20 151/108 (122) 98 01/15/17 00:00 98.2 85 20 160/116 (131) 98 01/14/17 22:06 92 Nasal Cannula 2.00 01/14/17 20:00 83 01/14/17 20:00 97.5 89 20 160/114 (129) 98 01/14/17 18:00 96.3 66 18 116/65 (82) 94 01/14/17 16:50 01/14/17 15:25 87 18 138/109 (119) 96 Nasal Cannula 4.00 01/14/17 15:25 87 18 96 Nasal Cannula 4.00 I/O 01/14/17 01/14/17 01/14/17 01/15/17 01/15/17 01/15/17 07:00 15:00 23:00 07:00 15:00 23:00 Intake Total 240 ml Output Total 500 ml 200 ml Balance -500 ml 40 ml Intake Oral 240 ml Output Urine Total 500 ml 200 ml Result Diagram: 01/15/17 0550 01/15/17 0550 Imaging Last Impressions Chest X-Ray 01/14/17 1132 Signed Impressions: Service Date/Time: Saturday, January 14, 2017 11:35 - CONCLUSION: 1. Cardiomegaly. 2. Minimal central pulmonary vascular congestion. 3. No acute focal pulmonary infiltrate to suggest pneumonia. Duncan Macario MD Objective Remarks AAOx3, nad lying flat in bed S1S2 RRR, no MRG Diminished breath sounds bilaterally, however no rhonchi or wheezing auscultated. No edema in lower extremities No JVD Medications and IVs Current Medications Medications (Trade) Dose Ordered Sig/Yi Route Start Time Stop Time Status Last Admin (NS Flush) 2 ml UNSCH PRN IV FLUSH 01/14/17 16:45 (NS Flush) 2 ml BID IV FLUSH 01/14/17 21:00 01/15/17 08:11 (Tylenol) 650 mg Q4H PRN PO 01/14/17 16:45 (Zofran Inj) 4 mg Q6H PRN IVP 01/14/17 16:45 (Heparin Inj) 5,000 units Q8HR SQ 01/14/17 16:45 01/15/17 13:09 (Narcan Inj) 0.4 mg UNSCH PRN IV PUSH 01/14/17 16:45 (Daniella-Colace) 1 tab BID PO 01/14/17 21:00 01/15/17 08:10 (Milk Of Magnesia Liq) 30 ml Q12H PRN PO 01/14/17 16:45 (Senokot) 17.2 mg Q12H PRN PO 01/14/17 16:45 (Dulcolax Supp) 10 mg DAILY PRN RECTAL 01/14/17 16:45 (Lactulose Liq) 30 ml DAILY PRN PO 01/14/17 16:45 (Catapres) 0.1 mg Q6H PRN PO 01/14/17 17:15 (Apresoline Inj) 20 mg Q4H PRN IV PUSH 01/14/17 17:15 01/15/17 05:13 (Aspirin Chew) 81 mg DAILY CHEW 01/15/17 09:00 01/15/17 08:10 (Cymbalta Dr) 60 mg BID PO 01/14/17 21:00 01/15/17 08:10 (Lexapro) 20 mg DAILY PO 01/15/17 09:00 01/15/17 08:10 (Neurontin) 1,200 mg BID PO 01/14/17 21:00 01/15/17 08:09 (Toprol Xl) 100 mg BID PO 01/14/17 21:00 01/15/17 08:09 ([place] 7.5-325 Mg) 1 tab Q6H PRN PO 01/14/17 17:15 01/15/17 14:11 (Cardura) 2 mg DAILY PO 01/15/17 11:00 01/15/17 13:05 Urinary Catheter: No Vascular Central Line Catheter: No A/P Problem List: (1) Hypertensive urgency ICD Code: I16.0 - Hypertensive urgency Status: Acute (2) CHF exacerbation ICD Code: I50.9 - Heart failure, unspecified Status: Acute (3) Atrial fibrillation ICD Code: I48.91 - Unspecified atrial fibrillation Assessment and Plan Hypertensive urgency, complicated by congestive heart failure, renal insufficiency Patient does have history of hypertension, blood pressure worse likely secondary to noncompliance with medications Home medications resumed on admission Continue Clonidine/Apresoline as needed 01/15 blood pressure still elevated, continue metoprolol tartrate 100 mg by mouth twice a day, I will start the patient on Cardura 2 mg by mouth daily. Continue to monitor vital signs Acute congestive heart failure Patient does have chronic congestive heart failure, however we do not know if it is systolic versus diastolic, clinical findings of edema, BNP, chest x- ray with central pulmonary vascular congestion Started on Lasix 40 mg po BID on admission Strict input and output Obtain echocardiogram Continue to trend cardiac enzymes and EKGs 01/15 Echo pending. Dc Lasix since BUN and creatinine trending up. Consult cardiology. JAIMEE Possible CKD vs due to hypertensive urgency. Continue monitor renal function 01/15 Patient states he has had some kidney issues however does not know any details. Creatinine is trending up from 1.4 to 1.6. Check renal us and consult nephrology. Dc IV lasix. Chronic Atrial fibrillation, rate controlled Continue home medication Continue aspirin for anticoagulation. Patient is a high risk for falls and usually stays home by himself. Hyperglycemia Check include an A1c. DVT prevention Subcutaneous heparin Sequential compression devices Discharge Planning cardiology and nephrology consult pending Chacorta Macias MD Jan 15, 2017 15:02
--- NOTE | 2017-01-15 15:44 | ECHRPT ---
Indication: shortness of breath CONCLUSIONS Poor echocardiographic windows The left ventricle is not well visualized. This study was not technically sufficient to allow for evaluation of left ventricular diastolic func tion. The right ventricle was not well visualized. The right atrium is not well visualized. The aortic root and proximal ascending aorta are not well visualized. The aortic valve is not well visualized. The tricuspid valve is not well visualized. The pulmonary valve is not well visualized. BP: 166 / 100 HR: 122 Rhythm: Sinus Technical Quality:Very technically difficult study FINDINGS LEFT VENTRICLE The left ventricle is not well visualized. This study was not technically sufficient to allow for evaluation of left ventricular diastolic func tion. RIGHT VENTRICLE The right ventricle was not well visualized. LEFT ATRIUM The left atrial size is normal. RIGHT ATRIUM The right atrium is not well visualized. AORTA The aortic root and proximal ascending aorta are not well visualized. MITRAL VALVE Structurally normal mitral valve. AORTIC VALVE The aortic valve is not well visualized. TRICUSPID VALVE The tricuspid valve is not well visualized. PULMONARY VALVE The pulmonary valve is not well visualized. VESSELS The inferior vena cava is normal in size. Hilario Moss MD (Electronically Signed) Final Date:15 January 2017 15:42
[2017-01-15 16:21] LABS: HEMOGLOBIN A1a 0.9 %; HEMOGLOBIN A1b 0.9 %; HEMOGLOBIN Ao 86.2 %; HEMOGLOBIN F 0.8 %; HEMOGLOBIN LA1C 1.9 %; HEMOGLOBIN P3 3.6 %
--- NOTE | 2017-01-15 16:39 | RADRPT ---
EXAM DATE/TIME: 01/15/2017 15:33 [facility] COMPARISON: No previous studies available for comparison. INDICATIONS : Abnormal labs. MEDICAL HISTORY : Congestive heart failure. Head trama. Headache. Neuropathy. A.FIB. Hypertension. Asthma. Dyspnea. Kidney stones. UTI. Prostate problems. Carpal tunnel. PTSD. Depression. SURGICAL HISTORY : Tonsillectomy. Cholecystectomy. Cardiac cath. ENCOUNTER: Initial ACUITY: 1 day PAIN SCORE: 2/10 LOCATION: Bilateral flank MEASUREMENTS: RIGHT KIDNEY: 11.3 x 6.3 x 6.4 cm LEFT KIDNEY: 12.2 x 5.9 x 6.0 cm FINDINGS: RIGHT KIDNEY: Renal cortex is normal in thickness and echotexture. No hydronephrosis, or mass. Echogenic 4 by 8mm area in the upper pole the right kidney without demonstrable shadowing still could be a renal calculu s LEFT KIDNEY: Renal cortex is normal in thickness and echotexture. No hydronephrosis, stone, or mass. BLADDER: Not identified secondary to I suspect under distention and overlying bowel gas. CONCLUSION: Nonvisualization of the bladder. Questionable right renal stone. No evidence of hydronephrosis or obs truction Jared Silverio MD on January 15, 2017 at 16:37 Board Certified Radiologist. This report was verified electronically.
--- NOTE | 2017-01-15 17:51 | EKG ---
Date Performed: 01/14/2017 Time Performed: 22:13:23 PTAGE: 51 years EKG: ATRIAL FIBRILLATION INTRAVENTRICULAR CONDUCTION DELAY POSSIBLE LEFT VENTRICULAR HYPERTROPHY Compared to prior tracing no significant change ABNORMAL ECG PREVIOUS TRACING : 01/14/2017 16.50 DOCTOR: Marbin Galarza Interpretating Date/Time 01/15/2017 17:50:20
--- NOTE | 2017-01-15 17:51 | EKG ---
Date Performed: 01/14/2017 Time Performed: 16:50:34 PTAGE: 51 years EKG: ATRIAL FIBRILLATION BORDERLINE LEFT AXIS DEVIATION INTRAVENTRICULAR CONDUCTION DELAY POSSIB LE LEFT VENTRICULAR HYPERTROPHY Compared to prior tracing no significant change ABNORMAL ECG PREVIOUS TRACING : 01/14/2017 11.24 DOCTOR: Marbin Galarza Interpretating Date/Time 01/15/2017 17:49:57
[2017-01-16] VITALS (9 sets, daily range): BP systolic 106–143; BP diastolic 73–104; PULSE 59–86; RESP 16–20; TEMP 95.7–98.4; O2SAT 91–98
[2017-01-16] MEDS: HEPARIN SODIUM - SQ 10,000 UNITS/ML VIAL SQ SCH ×3 (05:42→20:47)
[2017-01-16 07:06] LABS: AUTOMATED NEUTROPHIL # 5.8 TH/MM3 (1.8-7.7); BASOPHIL # 0.1 TH/MM3 (0-0.2); BASOPHIL % 0.7 % (0.0-2.0); EOSINOPHIL # 0.4 TH/MM3 (0-0.4); EOSINOPHIL % 4.8 % (0.0-4.0); HEMATOCRIT 38.6 % (39.0-51.0); HEMO FLAGS DIFF FINAL; MEAN CELL VOLUME 82.3 FL (80.0-100.0); MEAN CORPUSCULAR HGB CONC 32.8 % (32.0-36.0); MONO % 6.7 % (0.0-8.0); NEUT % 64.8 % (16.0-70.0); PLATELET COUNT 192 TH/MM3 (150-450); RED BLOOD COUNT 4.69 MIL/MM3 (4.50-5.90); RED CELL DISTRIBUTION WIDTH 14.9 % (11.6-17.2); WHITE BLOOD COUNT 8.9 TH/MM3 (4.0-11.0)
[2017-01-16 07:14] LABS: CHLORIDE 103 MEQ/L (98-107); POTASSIUM 3.8 MEQ/L (3.5-5.1); SODIUM (NA) 141 MEQ/L (136-145)
[2017-01-16 07:18] LABS: ANION GAP 8 MEQ/L (5-15); BICARBONATE 30.2 MEQ/L (21.0-32.0); BLOOD UREA NITROGEN 32 MG/DL (7-18)
[2017-01-16 07:21] LABS: ALT (GPT) 13 U/L (12-78); AST (GOT) 16 U/L (15-37); GLOMERULAR FILTRATION RATE 43 ML/MIN (>89)
[2017-01-16 07:23] LABS: TOTAL BILIRUBIN ADULT 0.9 MG/DL (0.2-1.0)
[2017-01-16 07:24] LABS: ALKALINE PHOSPHATASE 76 U/L (45-117)
--- NOTE | 2017-01-16 07:52 | MB ---
cc: YOSI TODD MD DATE OF CONSULTATION: 01/15/2017 REASON FOR CONSULTATION CHF. HISTORY OF PRESENT ILLNESS Mr. Black is a 51-year-old man who has extreme morbid obesity, atrial fibrillation and hypertension. He has been noncompliant with his medication secondary to cost. He subsequently presented with a hypertensive crisis. Cardiology was subsequently consulted. The patient also reports that he has had chronic atrial fibrillation since he was a teenager and is anticoagulated with aspirin secondary to frequent falls. PAST MEDICAL HISTORY 1. Atrial fibrillation. 2. Hypertension. 3. CHF. The patient had a cardiac catheterization 2-3 years ago with normal coronaries. He does report a low EF at that time. Subsequent studies did show recovery of function with metoprolol. 4. Morbid obesity, greater than 500 pounds. MEDICATIONS Outpatient medications include: 1. Duloxetine. 2. Oxycodone. 3. Aspirin. 4. Metoprolol ER 100 mg b.i.d. 5. Gabapentin. 6. Lexapro. 7. Enalapril 10 mg b.i.d. ALLERGIES 1. CLINDAMYCIN. 2. ERYTHROMYCIN. 3. RED DYE. FAMILY HISTORY Positive for CAD. SOCIAL HISTORY The patient is a former smoker. REVIEW OF SYSTEMS The patient does complain of back pain and frequent falls. Other than what is reported in the HPI all 12 systems are negative. PHYSICAL EXAMINATION VITAL SIGNS: 97.0, 71, 24, 116/64. GENERAL: In general he is a morbidly obese man who has difficulty turning in bed. NECK: Free from JVD. LUNGS: Clear to auscultation. CARDIOVASCULAR: Irregularly irregular rhythm. No rubs or gallops are appreciated. ABDOMEN: Soft. EXTREMITIES: Free from edema. LABORATORY Creatinine 1.6. Serial troponins less than 0.02. IMPRESSIONS/RECOMMENDATIONS 1. Hypertension: The patient has been noncompliant with his meds. His metoprolol was restarted and he again has good blood pressure control. We did discuss the importance of this. On arrival his systolic blood pressure was 234. At this point I do not feel any further changes are required. 2. Atrial fibrillation: The patient does have a longstanding history of the same. His rate is well-controlled with the metoprolol. He is not on any anticoagulation beyond aspirin secondary to frequent falls. 3. Heart failure: The patient apparently has presented with shortness of breath. This again has responded to medication. I agree with holding off on any further diuretics until he is evaluated by nephrology. His echocardiogram was of too poor quality secondary to his body habitus to obtain an EF. I would continue with conservative measures. An FRIDA inhibitor could be added if felt appropriate with his renal insufficiency by nephrology. 4. Morbid obesity: I did discuss weight loss with him. 5. Renal insufficiency: The patient's creatinine went from 1.3 to 1.6, and he is being seen by nephrology. 6. Disposition: It is reasonable for discharge home from a cardiac perspective. Yosi Todd M.D. ELIZABET/SAMSON /5:04 PM /7:30 AM
[2017-01-16] MEDS: METOPROLOL SUCCINATE 50 MG EXTENDED RELEASE TAB PO SCH ×2 (09:21→20:47)
[2017-01-16] MEDS: DOXAZOSIN MESYLATE 2 MG TAB PO SCH (09:21)
[2017-01-16] MEDS: ESCITALOPRAM OXALATE 20 MG TAB PO SCH (09:22)
[2017-01-16] MEDS: DULoxetine HCl DR 60 MG CAP PO SCH ×2 (09:22→20:47)
[2017-01-16] MEDS: DOCUSATE SODIUM 50 MG/SENNA 8.6 MG TAB PO SCH ×2 (09:22→20:47)
[2017-01-16] MEDS: GABAPENTIN 300 MG CAP PO SCH ×2 (09:22→20:47)
[2017-01-16] MEDS: ASPIRIN 81 MG CHEW TAB CHEW SCH (09:22)
[2017-01-16] MEDS: SODIUM CHLOR 0.9% 1000 ML INJ 1,000 ML IV SCH ×2 (10:18→21:34)
[2017-01-16] MEDS: SODIUM CHLORIDE 0.9% FLUSH 10 ML FLUSH IV FLUSH SCH ×2 (10:18→20:46)
--- NOTE | 2017-01-16 11:36 | HHI.PR ---
Subjective Remarks states he feels better denies cp/sob as per PT patient ambulated very well with help of bariatric walker creatinine trending up Objective Vitals Vital Signs Date Time Temp Pulse Resp B/P (MAP) Pulse Ox O2 Delivery O2 Flow Rate FiO2 01/16/17 08:00 92 Nasal Cannula 3.00 01/16/17 08:00 95.7 79 20 115/73 (87) 95 01/16/17 04:00 96.2 82 20 137/89 (105) 98 01/16/17 00:00 96.5 84 20 106/81 (89) 97 01/15/17 20:30 93 in-line 3.00 01/15/17 20:00 91 01/15/17 20:00 98.0 75 20 117/88 (98) 96 01/15/17 16:00 97.0 71 24 116/64 (81) 94 01/15/17 15:26 18 01/15/17 12:00 97.6 85 20 128/92 (104) 97 I/O 01/15/17 01/15/17 01/15/17 01/16/17 01/16/17 01/16/17 07:00 15:00 23:00 07:00 15:00 23:00 Intake Total 240 ml 240 ml 240 ml Output Total 200 ml 200 ml 150 ml Balance 40 ml 40 ml 90 ml Intake Oral 240 ml 240 ml 240 ml Output Urine Total 200 ml 200 ml 150 ml # Voids 1 1 # Bowel Movements 0 0 Result Diagram: 01/16/17 0623 01/16/17 0623 Imaging Last Impressions Renal Ultrasound 01/15/17 0000 Signed Impressions: Service Date/Time: January 15:33 - CONCLUSION: Nonvisualization of the bladder. Questionable right renal stone. No evidence of hydronephrosis or obstruction Jared Silverio MD Chest X-Ray 01/14/17 1132 Signed Impressions: Service Date/Time: Saturday, January 14, 2017 11:35 - CONCLUSION: 1. Cardiomegaly. 2. Minimal central pulmonary vascular congestion. 3. No acute focal pulmonary infiltrate to suggest pneumonia. Duncan Macario MD Objective Remarks AAOx3, nad lying flat in bed S1S2 RRR, no MRG Diminished breath sounds bilaterally, however no rhonchi or wheezing auscultated. No edema in lower extremities No JVD Medications and IVs Current Medications Medications (Trade) Dose Ordered Sig/Yi Route Start Time Stop Time Status Last Admin (NS Flush) 2 ml UNSCH PRN IV FLUSH 01/14/17 16:45 (NS Flush) 2 ml BID IV FLUSH 01/14/17 21:00 01/16/17 10:18 (Tylenol) 650 mg Q4H PRN PO 01/14/17 16:45 (Zofran Inj) 4 mg Q6H PRN IVP 01/14/17 16:45 (Heparin Inj) 5,000 units Q8HR SQ 01/14/17 16:45 01/16/17 05:42 (Narcan Inj) 0.4 mg UNSCH PRN IV PUSH 01/14/17 16:45 (Daniella-Colace) 1 tab BID PO 01/14/17 21:00 01/16/17 09:22 (Milk Of Magnesia Liq) 30 ml Q12H PRN PO 01/14/17 16:45 (Senokot) 17.2 mg Q12H PRN PO 01/14/17 16:45 (Dulcolax Supp) 10 mg DAILY PRN RECTAL 01/14/17 16:45 (Lactulose Liq) 30 ml DAILY PRN PO 01/14/17 16:45 (Catapres) 0.1 mg Q6H PRN PO 01/14/17 17:15 (Aspirin Chew) 81 mg DAILY CHEW 01/15/17 09:00 01/16/17 09:22 (Cymbalta Dr) 60 mg BID PO 01/14/17 21:00 01/16/17 09:22 (Lexapro) 20 mg DAILY PO 01/15/17 09:00 01/16/17 09:22 (Neurontin) 1,200 mg BID PO 01/14/17 21:00 01/16/17 09:22 (Toprol Xl) 100 mg BID PO 01/14/17 21:00 01/16/17 09:21 ([place] 7.5-325 Mg) 1 tab Q6H PRN PO 01/14/17 17:15 01/15/17 21:33 (Cardura) 2 mg DAILY PO 01/15/17 11:00 01/16/17 09:21 Sodium Chloride 1,000 ml @ 84 mls/hr [id number] IV 01/16/17 09:15 01/16/17 10:18 Urinary Catheter: No Vascular Central Line Catheter: No A/P Problem List: (1) Hypertensive urgency ICD Code: I16.0 - Hypertensive urgency Status: Acute (2) CHF exacerbation ICD Code: I50.9 - Heart failure, unspecified Status: Acute (3) Atrial fibrillation ICD Code: I48.91 - Unspecified atrial fibrillation Assessment and Plan Hypertensive urgency, complicated by congestive heart failure, renal insufficiency Patient does have history of hypertension, blood pressure worse likely secondary to noncompliance with medications Home medications resumed on admission Continue Clonidine/Apresoline as needed The pressure was elevated still on 01/15 metoprolol 100 mg by mouth twice a day was continued and the patient was started on Cardura 2 mg by mouth daily. 01/16 blood pressure much stable today. Acute congestive heart failure Patient does have chronic congestive heart failure, however we do not know if it is systolic versus diastolic, clinical findings of edema, BNP, chest x- ray with central pulmonary vascular congestion Started on Lasix 40 mg po BID on admission Strict input and output Obtain echocardiogram Continue to trend cardiac enzymes and EKGs 01/15 Echo pending. Dc Lasix since BUN and creatinine trending up. Consult cardiology. 01/16 cardiology recommendations appreciated. Continue to hold Lasix. Echocardiogram was suboptimal due to the not well post hospitalization of structures due to the patient's size. JAIMEE Possible CKD vs due to hypertensive urgency. Continue monitor renal function 01/15 Patient states he has had some kidney issues however does not know any details. 01/16 creatinine continues to trend up now 1.46700 admission. Continue to hold Lasix. Nephrology consulted, recommendations pending. Renal ultrasound does not show any evidence hydronephrosis. I will start the patient on gentle IV fluids with normal saline, continue to monitor BUN/creatinine, strict I's and O's and avoid nephrotoxins. Chronic Atrial fibrillation, rate controlled Continue home medication Continue aspirin for anticoagulation. Patient is a high risk for falls and usually stays home by himself. Hyperglycemia Hemoglobin A1c is 5.5. Diabetes ruled out. DVT prevention Subcutaneous heparin Sequential compression devices Discharge Planning Nephrology consultation pending. Creatinine trending up. Chacorta Macias MD Jan 16, 2017 11:36
[2017-01-16] MEDS: NYSTATIN 100,000 U/GM PWD 15 GM BTL TOPICAL SCH ×2 (18:02→21:01)
[2017-01-17 01:52] VITALS: BP 139/92; PULSE 70; RESP 22; TEMP 98; O2SAT 93
[2017-01-17 04:09] VITALS: BP 131/90; PULSE 62; RESP 20; TEMP 98.6; O2SAT 92
[2017-01-17] MEDS: HEPARIN SODIUM - SQ 10,000 UNITS/ML VIAL SQ SCH ×2 (06:29→13:27)
[2017-01-17 08:00] VITALS: BP 128/75; PULSE 75; RESP 19; TEMP 97.7; O2SAT 95
[2017-01-17] MEDS: DULoxetine HCl DR 60 MG CAP PO SCH (08:41)
[2017-01-17] MEDS: METOPROLOL SUCCINATE 50 MG EXTENDED RELEASE TAB PO SCH (08:41)
[2017-01-17] MEDS: DOXAZOSIN MESYLATE 2 MG TAB PO SCH (08:41)
[2017-01-17] MEDS: ESCITALOPRAM OXALATE 20 MG TAB PO SCH (08:41)
[2017-01-17] MEDS: ASPIRIN 81 MG CHEW TAB CHEW SCH (08:41)
[2017-01-17] MEDS: GABAPENTIN 300 MG CAP PO SCH (08:41)
[2017-01-17] MEDS: DOCUSATE SODIUM 50 MG/SENNA 8.6 MG TAB PO SCH (08:41)
[2017-01-17] MEDS: SODIUM CHLORIDE 0.9% FLUSH 10 ML FLUSH IV FLUSH SCH (08:42)
[2017-01-17] MEDS: NYSTATIN 100,000 U/GM PWD 15 GM BTL TOPICAL SCH (08:42)
[2017-01-17] MEDS: SODIUM CHLOR 0.9% 1000 ML INJ 1,000 ML IV SCH (08:45)
[2017-01-17 10:35] LABS: POTASSIUM 4.1 MEQ/L (3.5-5.1)
[2017-01-17 10:38] LABS: BICARBONATE 29.2 MEQ/L (21.0-32.0)
[2017-01-17 12:00] VITALS: BP 130/90; PULSE 77; RESP 17; TEMP 97.7; O2SAT 93
--- NOTE | 2017-01-17 14:52 | HHI.DCPOC ---
Discharge Care Plan Diagnosis: (1) Hypertensive urgency (2) Atrial fibrillation (3) Morbid obesity with BMI of 50.0-59.9, adult (4) CHF exacerbation (5) JAIMEE (acute kidney injury) Goals to Promote Your Health * To prevent worsening of your condition and complications * To maintain your health at the optimal level Directions to Meet Your Goals Take your medications as prescribed Follow your dietary instruction Follow activity as directed Keep your appointments as scheduled Take your immunizations and boosters as scheduled If your symptoms worsen call your PCP, if no PCP go to Urgent Care Center or Emergency Room Smoking is Dangerous to Your Health. Avoid second hand smoke Call the 24-hour hour crisis hotline for domestic abuse at Chacorta Macias MD Jan 17, 2017 14:52
[2017-01-17] MEDS ORDERED: METO100T9 PO (15:00)
[2017-01-17] MEDS ORDERED: NYST10007 TOPICAL (15:00)
[2017-01-17] MEDS ORDERED: DULO1CAP3 PO (15:00)
[2017-01-17] MEDS ORDERED: ASPI81CH37 CHEW (15:00)
[2017-01-17] MEDS ORDERED: GABA600T PO (15:00)
[2017-01-17] MEDS ORDERED: LEXA20TA PO (15:00)
[2017-01-17] MEDS ORDERED: ENAL20TA PO (15:00)
--- NOTE | 2017-01-17 15:10 | HHI.FF ---
Face to Face Verification Diagnosis: (1) CHF exacerbation (2) JAIMEE (acute kidney injury) (3) Hypertensive urgency (4) Morbid obesity with BMI of 50.0-59.9, adult (5) Depression (6) Atrial fibrillation Physical Therapy Order: Improve ambulation, Strength and gait training Home Health Nursing Order: Signs/symptoms of disease process CHF education Medication education-adverse effect Nursing assessment with vital signs I have seen patient Jasen Black on 01/17/17. My clinical findings support the need for the requested home health care services because: Ltd mobility - disease progression Med compliance is questionable Limited ability to care for self Need for psychosocial assistance Impaired cognition/judgement High risk of falls I certify that my clinical findings support that this patient is homebound because: Unsteady gait/balance Unsafe to leave home unassisted Need for psychosocial assistance Unable to use public transportation Chacorta Macias MD Jan 17, 2017 15:10
--- NOTE | 2017-01-17 15:11 | HHI.DS ---
Discharge Summary Admission Date Jan 14, 2017 at 16:35 Discharge Date: Jan 17, 2017 Admitting Diagnosis CHF exacerbation/hypertensive urgency (1) Hypertensive urgency ICD Code: I16.0 - Hypertensive urgency Diagnosis: Principal Status: Acute (2) CHF exacerbation ICD Code: I50.9 - Heart failure, unspecified Diagnosis: Principal Status: Acute (3) Atrial fibrillation ICD Code: I48.91 - Unspecified atrial fibrillation Diagnosis: Principal (4) Depression ICD Code: F32.9 - Major depressive disorder, single episode, unspecified Diagnosis: Principal (5) Morbid obesity with BMI of 50.0-59.9, adult ICD Code: E66.01 - Morbid (severe) obesity due to excess calories; Z68.43 - Body mass index (BMI) 50-59.9 , adult Diagnosis: Principal (6) JAIMEE (acute kidney injury) ICD Code: N17.9 - Acute kidney failure, unspecified Diagnosis: Principal Procedures none Brief History - From Admission Written by Johnnie Lei, acting as scribe for Dr. Nino on 01/14/17 at 16:53. 51-year-old male with known history of hypertension, congestive heart failure, chronic back pain, chronic atrial fibrillation who presented to hospital because of shortness of breath. Patient states that he started developing shortness of breath for the last 2 days. Patient states that he has had a nonproductive cough, significant dyspnea on exertion, denies any chest pain, nausea, vomiting, diaphoresis. Patient has been noncompliant with his medications because of financial reasons. Medications that he is supposed to take twice a day he is only been taken once a day. He has been having worsening shortness of breath, he does fall quite frequently at home. He does have chronic atrial fibrillation and chads 2, as indicated by the patient that his previous primary care doctor states that due to his recurrent falls that he' ll be anticoagulated on aspirin, that too high risk for any Coumadin. Because the patient's respiratory status did not improve he came to emergency department and patient was found to be in hypertensive urgency with blood pressure 234/138. Patient was started on nitroglycerin, he was given clonidine and Lasix with improvement of his blood pressure. Further studies indicate patient has acute congestive heart failure with chest x-ray showing central vascular congestion, elevated BNP. Patient blood pressure still very labile. It was recommended by the ER physician that the patient should be observed in the hospital for further evaluation and management. CBC/BMP: 01/16/17 0623 01/17/17 1001 Significant Findings Laboratory Tests Test 01/14/17 16:50 01/14/17 22:25 01/15/17 05:50 01/16/17 06:23 Troponin I LESS THAN 0.02 NG/ML LESS THAN 0.02 NG/ML White Blood Count 11.6 TH/MM3 (4.0-11.0) Mean Corpuscular Hemoglobin 26.7 PG (27.0-34.0) Neutrophils (%) (Auto) 75.4 % (16.0-70.0) Neutrophils # (Auto) 8.7 TH/MM3 (1.8-7.7) Blood Urea Nitrogen 25 MG/DL (7-18) 32 MG/DL (7-18) Creatinine 1.60 MG/DL (0.60-1.30) 1.70 MG/DL (0.60-1.30) Random Glucose 114 MG/DL (74-106) Total Bilirubin 1.4 MG/DL (0.2-1.0) Potassium Level 3.4 MEQ/L (3.5-5.1) Estimat Glomerular Filtration Rate 46 ML/MIN (>89) 43 ML/MIN (>89) Hemoglobin 12.6 GM/DL (13.0-17.0) Hematocrit 38.6 % (39.0-51.0) Eosinophils (%) (Auto) 4.8 % (0.0-4.0) Test 01/17/17 10:01 Blood Urea Nitrogen 27 MG/DL (7-18) Random Glucose 140 MG/DL (74-106) Estimat Glomerular Filtration Rate 58 ML/MIN (>89) Imaging Last Impressions Renal Ultrasound 01/15/17 0000 Signed Impressions: Service Date/Time: January 15:33 - CONCLUSION: Nonvisualization of the bladder. Questionable right renal stone. No evidence of hydronephrosis or obstruction Jared Silverio MD Chest X-Ray 01/14/17 1132 Signed Impressions: Service Date/Time: Saturday, January 14, 2017 11:35 - CONCLUSION: 1. Cardiomegaly. 2. Minimal central pulmonary vascular congestion. 3. No acute focal pulmonary infiltrate to suggest pneumonia. Duncan Macario MD PE at Discharge AAOx3, nad lying flat in bed S1S2 RRR, no MRG Diminished breath sounds bilaterally, however no rhonchi or wheezing auscultated. No edema in lower extremities No JVD Hospital Course The patient was admitted to the medical floor due to hypertensive urgency, complicated by congestive heart failure and renal insufficiency. The patient has a history of hypertension and blood pressure likely uncontrolled and very elevated secondary to noncompliance with medications. Home medications were resumed on admission and patient was placed on clonidine and Apresoline as needed. The patient had to be started on metoprolol tartrate 100 mg by mouth twice a day and Cardura 2 mg by mouth daily which seemed to control the hypertensive urgency. The patient has history of chronic congestive heart failure. Echocardiogram showed poor echocardiogram windows and the study was not technically sufficient to allow for resolution of left ventricular diastolic function. It is unknown if the heart failure is systolic or diastolic. However the issue was treated with Lasix which was discontinued given that the BUN/creatinine were going up. Cardiology was consulted. Patient also has history of atrial fibrillation which is long-standing. Heart rate remained well-controlled during hospitalization and the patient is not on any anti-correlation be on aspirin secondary to frequent falls. Patient's creatinine started to trend up from 1.4-1.6. The patient stated that he had some kidney issues however did not know any details. Possible chronic kidney disease. Nephrology was consulted, however the patient's creatinine came down from 1.7-1.3 after discontinuation of IV diuretics and menstruation of some IV fluids. The patient requested to follow up with nephrology as an outpatient. Renal ultrasound was obtained with a report of a questionable right renal stone but no evidence of hydronephrosis or obstruction. Patient was found to have hyperglycemia, likely secondary to stress given that hemoglobin A1c was 5.5 and diabetes was ruled out. DVT prevention provided with subcutaneous heparin and sequential compression devices. Pt Condition on Discharge: Stable Discharge Disposition: Disch w/ Home Health Serv Discharge Time: > 30 minutes Discharge Instructions DIET: Follow Instructions for: Heart Healthy Diet Activities you can perform: See Additionl Instruction Activities to Avoid: Prolonged Standing, Strenuous Activity Other Activity Instructions: OOB with assistance ambulate with walker only Follow up Referrals: Cardiology - 2 Weeks with Jessi Redding MD Nephrology - 2 Weeks with Paddy Andrew MD PCP Follow-up - 1 Week New Medications: Bariatric Rollator/Extra (Bariatric Rollator/Extra) 1 Mis Mis EA .ROUTE DIRECTED for difficult with ambulation, #1 Nystatin Topical (Nystop Topical) 100,000 Unit/Gm Powd 1 APPLIC TOPICAL Q12HR for Infection, #30 PACKET Continued Medications: Aspirin (Aspirin Low Dose) 81 Mg Chew 81 MG CHEW DAILY for Blood Clot Prevention, #30 TAB 0 Refills (This prescription has been renewed) Duloxetine DR (Duloxetine DR) 60 Mg Capdr 60 MG PO BID for Depression Control, #60 CAP 0 Refills (This prescription has been renewed) Enalapril (Enalapril) 20 Mg Tab 10 MG PO BID for Blood Pressure Management, #60 TAB 0 Refills (This prescription has been renewed) Escitalopram (Lexapro) 20 Mg Tab 20 MG PO DAILY for Depression Control, #30 TAB 0 Refills (This prescription has been renewed) Gabapentin (Gabapentin) 600 Mg Tab 1200 MG PO BID for neuropathy, #60 TAB 0 Refills (This prescription has been renewed) Metoprolol Succinate ER 24 HR (Metoprolol Succinate ER 24 HR) 100 Mg Tab 100 MG PO BID for Blood Pressure Management, #60 TAB 0 Refills (This prescription has been renewed) Oxycodone-Acetaminophen (Oxycodone-Acetaminophen) 7.5-325 mg Tab 1 TAB PO BID, TAB 0 Refills Chacorta Macias MD Jan 17, 2017 15:11
[2017-01-17] MEDS ORDERED: LISI10TA3 PO (15:15)
[2017-01-17] MEDS ORDERED: METO100T PO (15:16)
== END 2017-01-17 16:17 | disposition home health service (06) | DRG 292 ==
LOC: PHED 11:04 → PHEDA 14:46 → OBSVTOIN 16:35 → PH3B 16:57
PROVIDERS: ADMIT Hospitalist; ATTEND Hospitalist
DX: I11.0 Hypertensive heart disease with heart failure (principal); Z68.44 Body mass index [BMI] 60.0-69.9, adult; N17.9 Acute kidney failure, unspecified; I16.0 Hypertensive urgency; I50.9 Heart failure, unspecified; E66.01 Morbid (severe) obesity due to excess calories; F32.9 Major depressive disorder, single episode, unspecified; I48.2 Chronic atrial fibrillation; J45.909 Unspecified asthma, uncomplicated; G47.30 Sleep apnea, unspecified; F17.210 Nicotine dependence, cigarettes, uncomplicated; G89.29 Other chronic pain; R29.6 Repeated falls; R73.9 Hyperglycemia, unspecified; M54.9 Dorsalgia, unspecified; Z91.120 Patient's intentional underdosing of medication regimen due to financial hardship; Z91.81 History of falling; Z79.82 Long term (current) use of aspirin
CPT/HCPCS: 71010; 76775; 80048; 80053; 82550; 83036; 83880; 84484; 85025; 85610; 85730; 93005; 93306; 96374; J0360; J1644; J1940; J7030

== ENCOUNTER 2017-03-23 19:44 | Inpatient (IN) | payer OTHER, MEDICARE ==
[2017-03-23] VITALS (7 sets, daily range): BP systolic 161–229; BP diastolic 98–166; PULSE 82–92; RESP 20–26; TEMP 99.3; O2SAT 95–98
[~2017-03-23] VITALS: Ht 188 cm; Wt 239.5 kg
[~2017-03-23 19:44] MED LIST changes: -ASPI1TAB69 PO; +ASPI81CH6 CHEW; +BARIATRIC ROLLA1 MIS; -CYMB60CA PO; +DULO1CAP3 PO; -ENAL20TA PO; +GABA600T PO; -GABA800T PO; -HORI600T PO; -HYDR-3516 PO; +LISI10TA3 PO; +METO100T PO; -METO50TA PO; +NYST10007 TOPICAL; +OXYC1TAB35 PO
[2017-03-23] MEDS ORDERED: SODIUM CHLORIDE 0.9% FLUSH 10 ML FLUSH IVF PRN (20:00)
[2017-03-23] MEDS ORDERED: LABETALOL HCL 100 MG/20 ML VIAL IV PUSH ONE ×2 (20:00→21:15)
[2017-03-23] MEDS ORDERED: NITROGLYCERIN-D5W 50 MG/250 ML 250 ML IV ONE (20:00)
[2017-03-23] MEDS: NITROGLYCERIN 0.4 MG SL 25 TABS/BTL SL SCH ×3 (20:05→20:31)
--- NOTE | 2017-03-23 20:11 | PD ---
HPI Chief Complaint: Respiratory Distress Time Seen by Provider: 19:46 Travel History International Travel<30 days: No Contact w/Intl Traveler<30days: No Traveled to known affect area: No History of Present Illness HPI The patient is a 51 year old male who presents to the [facility] emergency department with a history of awakening this morning with shortness of breath. He reports that he had shortness of breath that began with exertion at 7:30 AM. He reports that he has continued to be short of breath throughout the day. The patient reports that he does use CPAP at night to sleep. The patient reports that he also has a history of congestive heart failure he denies having any worsening edema. The patient arrives with an extremely high blood pressure of 229/166. The patient reports that he had did take his morning doses of his blood pressure medicine, an FRIDA inhibitor and metoprolol. The patient reports that he was last admitted to the hospital in January and had a negative stress test at that time. (Incidentally, it is noted on review of the electronic medical record at this facility that he was seen as an inpatient by Dr. Redding, however no stress test was done during his January hospital admission. No record of a stress test being done at this facility is noted.) He denies having a local personal banking assistant that he is established with yet, however he is followed for his primary care by [place] [facility]. The patient reports that he has a history of chronic atrial fibrillation. He is currently taking low-dose aspirin for anticoagulation. The patient initially denied having chest pain, however on further questioning he reports that he has had intermittent chest pain since this morning. He reports that the pain as a tightening sensation in the center of his chest. He denies any prior history of myocardial infarction. He reports that he has had a cardiac catheterization in the past, however no stents were placed. He denies having any known fevers, however he has had chills. He denies having any significant cough or congestion , neck pain, abdominal pain, vomiting, diarrhea, urinary symptoms, or neurologic symptoms. [facility] Past Medical History Narrative Medical The patient's past medical history is significant for being morbidly obese, history of chronic renal insufficiency, hypertension, congestive heart failure, history of chronic back pain, history of chronic atrial fibrillation, sleep apnea Asthma: Yes (reactive airway ) Atrial Fibrillation: Yes Depression: Yes Heart Rhythm Problems: Yes Cancer: No Cardiovascular Problems: Yes Chest Pain: Yes Congestive Heart Failure: Yes Diminished Hearing: No Endocrine: No Genitourinary: No (incontinent ) Headaches: Yes Hypertension: Yes Implanted Vascular Access Dvce: No Kidney Stones: Yes Musculoskeletal: Yes (carpal tunnel ) Neurologic: Yes (memory loss ) Psychiatric: Yes (previous involuntary psychiatric care) Respiratory: Yes Sleep Apnea: Yes (BIPAP AT NIGHT) Tetanus Vaccination: Unknown Past Surgical History Narrative Surgical The patient's past surgical history is significant for cardiac catheterization, cardioversion, tonsillectomy, cholecystectomy. Abdominal Surgery: Yes (gallbladder ) Cardiac Surgery: Yes (CATH) Cholecystectomy: Yes Oral Surgery: Yes (tonsilectomy ) Tonsillectomy: Yes Social History Alcohol Use: No Tobacco Use: No Substance Use: Yes (Marijuana) Allergies-Medications (Allergen,Severity, Reaction): Coded Allergies: clindamycin (Unverified Allergy, Severe, Hives, 03/23/17) erythromycin base (Unverified Allergy, Severe, Hives, 03/23/17) red dye (Unverified Allergy, Unknown, 03/23/17) Reported Meds & Prescriptions Reported Meds & Active Scripts Active Metoprolol Tartrate 100 Mg Tab 100 Mg PO BID Lisinopril 10 Mg Tab 10 Mg PO DAILY Duloxetine DR (Duloxetine HCl) 60 Mg Capdr 60 Mg PO BID Aspirin Low Dose (Aspirin) 81 Mg Chew 81 Mg CHEW DAILY Gabapentin 600 Mg Tab 1,200 Mg PO BID Lexapro (Escitalopram Oxalate) 20 Mg Tab 20 Mg PO DAILY Bariatric Rollator/Extra (Device) 1 Mis Mis Ea .ROUTE DIRECTED Reported Oxycodone-Acetaminophen 7.5-325 mg Tab 1 Tab PO BID Review of Systems Except as stated in HPI: all other systems reviewed are Neg General / Constitutional: No: Fever Eyes: No: Visual changes HENT: No: Headaches, Congestion Cardiovascular: Positive: Chest Pain or Discomfort, Dyspnea on exertion Respiratory: Positive: Shortness of Breath, No: Cough Gastrointestinal: No: Nausea, Vomiting, Diarrhea, Abdominal Pain Genitourinary: No: Dysuria Musculoskeletal: No: Pain Skin: No Rash Neurologic: No: Weakness, Focal Abnormalities, Change in Mentation, Slurred Speech, Sensory Disturbance Psychiatric: No: Depression Endocrine: No: Polydipsia Hematologic/Lymphatic: No: Easy Bruising Physical Exam Narrative General: The patient is a well-developed well-nourished male in no acute distress. On transfer from the ambulance gurney to the emergency department bed the patient is noted to desaturate on room air down to 84%. Head and Neck exam: Head is normocephalic atraumatic. Eyes: EOMI, pupils are equal round and reactive to light. Nose: Midline septum with pink mucous membranes Mouth: Dentition unremarkable. Moist mucus membranes. Posterior oropharynx is not erythematous. No tonsillar hypertrophy. Uvula midline. Airway patent. Neck: No palpable lymphadenopathy. No nuchal rigidity. No thyromegaly. Cardiovascular: Irregularly irregular with a rate that ranges from the 90s to 1 teens without murmurs, gallops, or rubs. Lungs: Decreased breath sounds in bilateral lung bases. No wheezes, rhonchi, or crackles are audible. Sensory muscle use. No paroxysmal abdominal breathing. Abdomen: Soft, distended related to central obesity, without tenderness to palpation in all 4 quadrants of the abdomen. No guarding, rebound, or rigidity. Normal bowel sounds are audible. No tenderness on palpation of McBurney's point. Extremities: No clubbing or cyanosis. The patient has trace pedal edema. 2+ pulses in all 4 extremities. No calf tenderness on palpation. Back: No costovertebral angle tenderness to palpation. Neurologic Exam: Grossly nonfocal. Skin Exam: No rash noted. Intact skin that is warm and dry. Data Data Last Documented VS Vital Signs Date Time Temp Pulse Resp B/P (MAP) Pulse Ox O2 Delivery O2 Flow Rate FiO2 03/23/17 20:34 217/147 (170) 229/166 (187) 03/23/17 20:28 93 03/23/17 20:01 96 Nasal Cannula 3.00 03/23/17 19:51 99.3 26 Orders Orders Electrocardiogram (03/23/17 19:57) B-Type Natriuretic Peptide (03/23/17 19:57) Ckmb (Isoenzyme) Profile (03/23/17 19:57) Complete Blood Count With Diff (03/23/17 19:57) Comprehensive Metabolic Panel (03/23/17 19:57) Magnesium (Mg) (03/23/17 19:57) Prothrombin Time / Inr (Pt) (03/23/17 19:57) Act Partial Throm Time (Ptt) (03/23/17 19:57) Troponin I (03/23/17 19:57) Lipase (03/23/17 19:57) Chest, Single Ap (03/23/17 19:57) Ecg Monitoring (03/23/17 19:57) Bilateral Bp Monitoring (03/23/17 19:57) Iv Access Insert/Monitor (03/23/17 19:57) Oximetry (03/23/17 19:57) Oxygen Administration (03/23/17 19:57) Nitroglycerin-D5w 50 Mg/250 Ml (Nitrogly (03/23/17 20:00) Sodium Chloride 0.9% Flush (Ns Flush) (03/23/17 20:00) Nitroglycerin Sl (Nitrostat Sl) (03/23/17 20:00) Labetalol Inj (Trandate Inj) (03/23/17 20:00) Cta Thor Abd Aorta W Iv C W3d (03/23/17 20:22) Labetalol Inj (Trandate Inj) (03/23/17 21:15) Iohexol 350 Inj (Omnipaque 350 Inj) (03/23/17 21:27) Admit Order (Ed Use Only) (03/23/17 22:13) Labs Laboratory Tests Test 03/23/17 20:25 White Blood Count 13.1 TH/MM3 Red Blood Count 4.79 MIL/MM3 Hemoglobin 13.0 GM/DL Hematocrit 39.1 % Mean Corpuscular Volume 81.8 FL Mean Corpuscular Hemoglobin 27.1 PG Mean Corpuscular Hemoglobin Concent 33.1 % Red Cell Distribution Width 14.5 % Platelet Count 212 TH/MM3 Mean Platelet Volume 8.6 FL Neutrophils (%) (Auto) 85.4 % Lymphocytes (%) (Auto) 9.1 % Monocytes (%) (Auto) 3.7 % Eosinophils (%) (Auto) 1.3 % Basophils (%) (Auto) 0.5 % Neutrophils # (Auto) 11.2 TH/MM3 Lymphocytes # (Auto) 1.2 TH/MM3 Monocytes # (Auto) 0.5 TH/MM3 Eosinophils # (Auto) 0.2 TH/MM3 Basophils # (Auto) 0.1 TH/MM3 CBC Comment DIFF FINAL Differential Comment Prothrombin Time 12.0 SEC Prothromb Time International Ratio 1.1 RATIO Activated Partial Thromboplast Time 30.4 SEC Blood Urea Nitrogen 15 MG/DL Creatinine 1.11 MG/DL Random Glucose 111 MG/DL Total Protein 8.1 GM/DL Albumin 3.3 GM/DL Calcium Level 8.5 MG/DL Magnesium Level 2.1 MG/DL Alkaline Phosphatase 94 U/L Aspartate Amino Transf (AST/SGOT) 17 U/L Alanine Aminotransferase (ALT/SGPT) 18 U/L Total Bilirubin 1.2 MG/DL Sodium Level 140 MEQ/L Potassium Level 4.0 MEQ/L Chloride Level 107 MEQ/L Carbon Dioxide Level 24.2 MEQ/L Anion Gap 9 MEQ/L Estimat Glomerular Filtration Rate 70 ML/MIN Total Creatine Kinase 62 U/L Troponin I LESS THAN 0.02 NG/ML B-Type Natriuretic Peptide 534 PG/ML Lipase 71 U/L MDM Medical Decision Making Medical Screen Exam Complete: Yes Emergency Medical Condition: Yes Medical Record Reviewed: Yes Differential Diagnosis Congestive heart failure exacerbation, versus acute coronary syndrome, versus aortic dissection Narrative Course During the course of the patients emergency department visit, the patients history, examination, and differential diagnosis were reviewed with the patient. The patient was placed on a donkey doctor with oximetry and frequent blood pressure monitoring. The patient had IV access obtained and blood work sent for analysis. The patient had an ECG done on arrival that shows atrial fibrillation heart rate of 98 with occasional premature ventricular complexes, QRS duration 118 ms, QTC [address] segment elevation or depression is noted. The patient was initially provided nitroglycerin sublingual every 5 minutes 3, and a nitroglycerin drip was started. The patient was given labetalol 10 mg IV. The patients laboratory studies were reviewed and remarkable for a white count of 13.1, hemoglobin 13, platelets 212 with a neutrophil of 85.4, CMP is remarkable for a GFR 70, glucose 111, total bilirubin 1.2, magnesium 2.1, CPK 62 , troponin I less than 0.02,, lipase 71, PT 12, PTT 30.4. Radiology studies were reviewed and remarkable for a chest x-ray that shows stable severe cardiomegaly. No focal infiltrates seen. CTA of the aorta is negative for dissection. The patient's blood pressure came down to 183/133. An additional 10 mg of labetalol will be administered. The patients results were discussed with the patient, including the plan of care. I explained that further testing and/ or monitoring is indicated based on the patients history, examination, and/ or laboratory findings. Therefore, I recommended admission for additional evaluation. The patient expressed understanding and was agreeable with this plan. The patient was admitted to the hospital in stable condition and sent to a bed under the care of the [facility] service. Critical Care Narrative Aggregate critical care time was 40 minutes. Time to perform other separately billable procedures was not included in the critical care time. My time did not include minutes spent treating any other patients simultaneously or on activities that did not directly contribute to the patient's treatment. The services I provided to this patient were to treat and/or prevent clinically significant deterioration that could result in: I provided critical care services requiring my management, as noted below: Chart data review, documentation time, medication orders and management, vital sign assessments/reviewing monitor data, ordering and reviewing lab tests, ordering and interpreting/reviewing x-rays and diagnostic studies, care of the patient and discussion of the patient with the admitting physicians. Physician Communication Physician Communication The patient's case including history, pertinent physical examination findings, and laboratory studies were discussed with Dr. Miranda. It was agreed that the patient would be admitted to the [facility] service. Diagnosis Primary Impression: Hypertensive emergency Additional Impression: Chest pain, rule out acute myocardial infarction Admitting Information Admitting Physician Requests: Anuja Vila MD Mar 23, 2017 20:11
[2017-03-23 20:32] LABS: AUTOMATED NEUTROPHIL # 11.2 TH/MM3 (1.8-7.7); BASOPHIL # 0.1 TH/MM3 (0-0.2); BASOPHIL % 0.5 % (0.0-2.0); EOSINOPHIL # 0.2 TH/MM3 (0-0.4); EOSINOPHIL % 1.3 % (0.0-4.0); HEMATOCRIT 39.1 % (39.0-51.0); HEMO FLAGS DIFF FINAL; LYMPH % 9.1 % (9.0-44.0); LYMPHOCYTE # 1.2 TH/MM3 (1.0-4.8); MEAN CELL VOLUME 81.8 FL (80.0-100.0); MEAN CORPUSCULAR HEMOGLOBIN 27.1 PG (27.0-34.0); MEAN CORPUSCULAR HGB CONC 33.1 % (32.0-36.0); MONO % 3.7 % (0.0-8.0); NEUT % 85.4 % (16.0-70.0); PLATELET COUNT 212 TH/MM3 (150-450); RED BLOOD COUNT 4.79 MIL/MM3 (4.50-5.90); RED CELL DISTRIBUTION WIDTH 14.5 % (11.6-17.2); WHITE BLOOD COUNT 13.1 TH/MM3 (4.0-11.0)
[2017-03-23 20:41] LABS: APTT (PATIENT) 30.4 SEC (24.3-30.1); INTERNATIONAL NORMALIZED RATIO 1.1 RATIO
[2017-03-23 20:46] LABS: ANION GAP 9 MEQ/L (5-15); AST (GOT) 17 U/L (15-37); BICARBONATE 24.2 MEQ/L (21.0-32.0); BLOOD UREA NITROGEN 15 MG/DL (7-18); CHLORIDE 107 MEQ/L (98-107); GLOMERULAR FILTRATION RATE 70 ML/MIN (>89); MAGNESIUM 2.1 MG/DL (1.5-2.5); SODIUM (NA) 140 MEQ/L (136-145)
[2017-03-23 20:47] LABS: ALT (GPT) 18 U/L (12-78)
[2017-03-23 20:51] LABS: ALKALINE PHOSPHATASE 94 U/L (45-117); TOTAL BILIRUBIN ADULT 1.2 MG/DL (0.2-1.0)
--- NOTE | 2017-03-23 20:54 | RADRPT ---
EXAM DATE/TIME: 03/23/2017 20:04 [facility] COMPARISON: CHEST SINGLE AP, January 14, 2017, 11:35. INDICATIONS : Chest pain MEDICAL HISTORY : Congestive heart failure. SURGICAL HISTORY : None. ENCOUNTER: Initial ACUITY: 2 days PAIN SCORE: 6/10 LOCATION: Bilateral chest FINDINGS: Severe cardiomegaly, similar to prior. There is some indistinctness of the central bronchopulmonary markings which is also similar to prior. Both hemidiaphragms remain well delineated. CONCLUSION: Stable severe cardiomegaly. No focal infiltrates seen. Rizwan Barboza MD on March 23, 2017 at 20:51 Board Certified Radiologist. This report was verified electronically.
[2017-03-23 21:00] LABS: CREATINE KINASE 62 U/L (39-308)
[2017-03-23] MEDS ORDERED: IOHEXOL 350 MG/ML 10 ML VIAL (for RAD DIAG) IVCONTRAST ONE (21:27)
--- NOTE | 2017-03-23 22:03 | RADRPT ---
EXAM DATE/TIME: 03/23/2017 21:22 [facility] COMPARISON: CHEST SINGLE AP, March 23, 2017, 20:04. INDICATIONS : Shortness of breath and chest pain today. IV CONTRAST: 98 cc Omnipaque 350 (iohexol) IV RADIATION DOSE: 29.13 CTDIvol (mGy) ; Patient body habitus MEDICAL HISTORY : Congestive hearrt failure. Hypertension. SURGICAL HISTORY : Cholecystectomy. ENCOUNTER: Initial ACUITY: 1 day PAIN SCALE: 7/10 LOCATION: substernal chest TECHNIQUE: Volumetric scanning was performed using a multi-row detector CT scanner. The data was post processed with a variety of visualization algorithms including full volume maximum intensity projection, multi -planar sliding thin slab reformation, curved planar reformation, and surface rendering techniques. Using automated exposure control and adjustment of the mA and/or kV according to patient size, radiat ion dose was kept as low as reasonably achievable to obtain optimal diagnostic quality images. DICOM format image data is available electronically for review and comparison. FINDINGS: There is mild compromise of the image quality due to patient's large body habitus; the study is diagn ostic for evaluation of the aorta however. The thoracic and abdominal aorta is normal in dimension. No evidence of dissection or aneurysm. Prominent amount of mediastinal fat in the thorax. Small bilateral pleural effusions measure up to 2 cm in thickness. No pulmonary masses or consolidation. No focal lesion seen in the liver or spleen. Normal appearance to the adrenal glands. No dilated lo ops of small or large bowel. There are several bilateral calcified renal stones, the largest is located in the lower pole left sanjiv e measuring 10 mm. There is also a 6 mm calcified stone in the right ureteropelvic junction. No nova dence of hydronephrosis. Both ureters are normal in dimension. CONCLUSION: 1. Normal dimension in appearance to the thoracic and abdominal aorta. 2. Prominent mediastinal fat accounts for the apparent cardiomegaly seen on conventional radiographs. 3. Small bilateral pleural effusions. 4. Bilateral calcified renal stones measuring up to 1 cm without evidence of hydronephrosis. There i s also a calcified stone at the right ureteral pelvic junction measuring 6 mm. Rizwan Barboza MD on March 23, 2017 at 21:55 Board Certified Radiologist. This report was verified electronically.
[2017-03-23] MEDS ORDERED: hydrALAZINE HCL 20 MG/ML VIAL IV PUSH PRN (23:15)
[2017-03-23] MEDS ORDERED: SODIUM CHLORIDE 0.9% FLUSH 10 ML FLUSH IV FLUSH PRN (23:15)
[2017-03-24] VITALS (30 sets, daily range): BP systolic 113–210; BP diastolic 66–138; PULSE 74–108; RESP 16–20; TEMP 97.6–98.6; O2SAT 90–95
[2017-03-24] MEDS ORDERED: ACETAMINOPHEN 500 MG CPLT PO ONE ×2 (01:15→11:15)
--- NOTE | 2017-03-24 02:05 | HHI.HP ---
[facility] No Primary Care Physician Admission Diagnosis Hypertensive urgency, cp ro mi Diagnoses: Travel History International Travel<30 Days: No Contact w/Intl Traveler <30 Da: No Traveled to Known Affected Are: No History of Present Illness 51-year-old male with a past medical history significant for hypertension, CHF ( ECHO done in 01/18 - unable to assess LV function 2/2 body habitus), chronic back pain and A. fib anticoagulated with aspirin presents with increasing shortness of breath and chest pain. Patient reports his shortness of breath began with exertion this morning upon waking. He reports that he continued to be short of breath throughout the day and that it is worsening. He has a known history of CHF. Denies any lower extremity edema. The patient also reports intermittent chest pain since this morning. He reports the pain as a tightening sensation and believes it is coming from his lungs. On arrival to the emergency department he was found to have a blood pressure of 229/166. EKG significant for atrial fibrillation with occasional PVCs heart rate of 98. Troponin less than 0.02, BNP 534. The patient was started on a nitro drip in the ED and his chest pain resolved. He states he is still short of breath. Review of Systems Denies fever or chills Denies blurry vision, otorrhea, rhinorrhea Denies sore throat and cough Positive chest pain and shortness of breath No abdominal pain Denies constipation/diarrhea/nausea/vomiting Denies muscle pain/weakness No rashes Past Family Social History Past Medical History Atrial fibrillation anticoagulated on aspirin Hypertension VENANCIO CHF Chronic back pain Morbid obesity Past Surgical History Cholecystectomy Tonsillectomy Reported Medications Reported Meds & Active Scripts Active Metoprolol Tartrate 100 Mg Tab 100 Mg PO BID Lisinopril 10 Mg Tab 10 Mg PO DAILY Duloxetine DR (Duloxetine HCl) 60 Mg Capdr 60 Mg PO BID Aspirin Low Dose (Aspirin) 81 Mg Chew 81 Mg CHEW DAILY Gabapentin 600 Mg Tab 1,200 Mg PO BID Lexapro (Escitalopram Oxalate) 20 Mg Tab 20 Mg PO DAILY Bariatric Rollator/Extra (Device) 1 Mis Mis Ea .ROUTE DIRECTED Reported Oxycodone-Acetaminophen 7.5-325 mg Tab 1 Tab PO BID Allergies: Coded Allergies: clindamycin (Unverified Allergy, Severe, Hives, 03/23/17) erythromycin base (Unverified Allergy, Severe, Hives, 03/23/17) red dye (Unverified Allergy, Unknown, 03/23/17) Family History Mother with cardiac disease. Father with diabetes mellitus. Social History Quit smoking "several years ago." Previously smoked up to 5 packs per day. Occasional alcohol. Positive marijuana. Denies other illicit drugs. Physical Exam Vital Signs Vital Signs Date Time Temp Pulse Resp B/P (MAP) Pulse Ox O2 Delivery O2 Flow Rate FiO2 03/24/17 01:52 98 208/114 03/24/17 01:25 90 206/133 03/24/17 01:00 101 03/24/17 00:31 86 03/24/17 00:30 92 Nasal Cannula 3.00 03/24/17 00:30 91 113/71 03/24/17 00:30 98.1 89 18 113/73 (86) 92 03/23/17 23:52 03/23/17 23:48 95 Nasal Cannula 3.00 03/23/17 23:15 92 20 161/98 (119) 95 Nasal Cannula 3.00 03/23/17 22:44 90 20 181/122 (141) 98 Room Air 03/23/17 22:25 88 183/111 (135) 03/23/17 21:45 82 171/117 (135) 03/23/17 20:34 217/147 (170) 229/166 (187) 03/23/17 20:28 93 191/129 03/23/17 20:01 96 Nasal Cannula 3.00 03/23/17 19:59 96 Nasal Cannula 3.00 03/23/17 19:51 99.3 87 26 229/166 (187) 95 Physical Exam GENERAL: Obese, male sitting up in bed SKIN: No rashes, ecchymoses or lesions. Cool and dry. HEAD: Atraumatic. Normocephalic. No temporal or scalp tenderness. EYES: Pupils equal round and reactive. Extraocular motions intact. No scleral icterus. No injection or drainage. ENT: Nose without bleeding, purulent drainage or septal hematoma. Throat without erythema, tonsillar hypertrophy or exudate. Uvula midline. Airway patent. NECK: Trachea midline. No JVD or lymphadenopathy. Supple, nontender, no meningeal signs. CARDIOVASCULAR: Irregular rate without murmurs/rubs/gallops RESPIRATORY: Distant breath sounds. Clear to auscultation. Breath sounds equal bilaterally. No wheezes, rales, or rhonchi. GASTROINTESTINAL: Abdomen soft, non-tender, nondistended. No hepato-splenomegaly , or palpable masses. No guarding. MUSCULOSKELETAL: Extremities without clubbing, cyanosis, or edema. No joint tenderness, effusion, or edema noted. No calf tenderness. Negative Homans sign bilaterally. NEUROLOGICAL: Awake and alert. Cranial nerves II through XII intact. Motor and sensory grossly within normal limits. Normal speech. Laboratory Laboratory Tests Test 03/23/17 20:25 White Blood Count 13.1 Red Blood Count 4.79 Hemoglobin 13.0 Hematocrit 39.1 Mean Corpuscular Volume 81.8 Mean Corpuscular Hemoglobin 27.1 Mean Corpuscular Hemoglobin Concent 33.1 Red Cell Distribution Width 14.5 Platelet Count 212 Mean Platelet Volume 8.6 Neutrophils (%) (Auto) 85.4 Lymphocytes (%) (Auto) 9.1 Monocytes (%) (Auto) 3.7 Eosinophils (%) (Auto) 1.3 Basophils (%) (Auto) 0.5 Neutrophils # (Auto) 11.2 Lymphocytes # (Auto) 1.2 Monocytes # (Auto) 0.5 Eosinophils # (Auto) 0.2 Basophils # (Auto) 0.1 CBC Comment DIFF FINAL Differential Comment Prothrombin Time 12.0 Prothromb Time International Ratio 1.1 Activated Partial Thromboplast Time 30.4 Blood Urea Nitrogen 15 Creatinine 1.11 Random Glucose 111 Total Protein 8.1 Albumin 3.3 Calcium Level 8.5 Magnesium Level 2.1 Alkaline Phosphatase 94 Aspartate Amino Transf (AST/SGOT) 17 Alanine Aminotransferase (ALT/SGPT) 18 Total Bilirubin 1.2 Sodium Level 140 Potassium Level 4.0 Chloride Level 107 Carbon Dioxide Level 24.2 Anion Gap 9 Estimat Glomerular Filtration Rate 70 Total Creatine Kinase 62 Troponin I LESS THAN 0.02 B-Type Natriuretic Peptide 534 Lipase 71 Result Diagram: 03/23/17202403/23/172024 Caprini VTE Risk Assessment Caprini VTE Risk Assessment: Mod/High Risk (score >= 2) Caprini Risk Assessment Model Point Value = 1 Point Value = 2 Point Value = 3 Point Value = 5 Age 41-60 Minor surgery BMI > 25 kg/m2 Swollen legs Varicose veins or History of unexplained or recurrent spontaneous Oral contraceptives or hormone replacement Sepsis (< 1 month) Serious lung disease, including pneumonia (< 1 month) Abnormal pulmonary function Acute myocardial infarction Congestive heart failure (< 1 month) History of inflammatory bowel disease Medical patient at bed rest Age 61-74 Arthroscopic surgery Major open surgery (> 45 min) Laparoscopic surgery (> 45 min) Malignancy Confined to bed (> 72 hours) Immobilizing plaster cast Central venous access Age >= 75 History of VTE Family history of VTE Factor V Leiden Prothrombin [id number] Lupus anticoagulant Anticardiolipin antibodies Elevated serum homocysteine Heparin-induced thrombocytopenia Other congenital or acquired thrombophilia Stroke (< 1 month) Elective arthroplasty Hip, pelvis, or leg fracture Acute spinal cord injury (< 1 month) Prophylaxis Regimen Total Risk Factor Score Risk Level Prophylaxis Regimen 0-1 Low Early ambulation 2 Moderate Order ONE of the following: *Sequential Compression Device (SCD) *Heparin 5000 units SQ BID 3-4 Higher Order ONE of the following medications: *Heparin 5000 units SQ TID *Enoxaparin/Lovenox 40 mg SQ daily (WT < 150 kg, CrCl > 30 mL/min) *Enoxaparin/Lovenox 30 mg SQ daily (WT < 150 kg, CrCl > 10-29 mL/min) *Enoxaparin/Lovenox 30 mg SQ BID (WT < 150 kg, CrCl > 30 mL/min) AND/OR *Sequential Compression Device (SCD) 5 or more Highest Order ONE of the following medications: *Heparin 5000 units SQ TID (Preferred with Epidurals) *Enoxaparin/Lovenox 40 mg SQ daily (WT < 150 kg, CrCl > 30 mL/min) *Enoxaparin/Lovenox 30 mg SQ daily (WT < 150 kg, CrCl > 10-29 mL/min) *Enoxaparin/Lovenox 30 mg SQ BID (WT < 150 kg, CrCl > 30 mL/min) AND *Sequential Compression Device (SCD) Assessment and Plan Assessment and Plan 51-year-old male with past medical history significant for atrial fibrillation, CHF, hypertension and morbid obesity presents with a 1 day history of increasing shortness of breath and chest tightness. 1. Hypertensive crisis Patient's blood pressure recovered with a nitroglycerin drip and labetalol 2 in the ED Continue nitro drip Hydralazine prn Unclear if patient is compliant with his medications, may require additional antihypertensive regimen 2. Chest pain EKG without ST segment elevations or depressions, reviewed by me Initial troponin negative ACS rule out pending Patient does not have a local vice president of development 3. CHF BMP 534, at last visit 424 Chest x-ray with vascular congestion, reviewed by me Anamaria DAI 4. Chronic pain Continue gabapentin/Cymbalta FEN Heart healthy diet Electrolytes: monitor and replete prn Heparin Physician Certification 2 Midnight Certification Type: Admission for Inpatient Services Order for Inpatient Services The services are ordered in accordance with Medicare regulations or non- Medicare payer requirements, as applicable. In the case of services not specified as inpatient-only, they are appropriately provided as inpatient services in accordance with the 2-midnight benchmark. Estimated LOS (days): 2 2 days is the estimated time the patient will need to remain in the hospital, assuming treatment plan goals are met and no additional complications. Post-Hospital Plan: Not yet determined Cyndy Miranda MD Mar 24, 2017 02:05
[2017-03-24] MEDS ORDERED: FUROSEMIDE 40 MG/4 ML VIAL IV PUSH ONE (02:30)
[2017-03-24] MEDS: LABETALOL HCL 100 MG/20 ML VIAL IV PUSH PRN ×2 (02:58→21:44)
[2017-03-24] MEDS ORDERED: diphenhydrAMINE HCL 50 MG CAP PO ONE (03:00)
[2017-03-24 03:06] LABS: ANION GAP 9 MEQ/L (5-15); BICARBONATE 27.5 MEQ/L (21.0-32.0); BLOOD UREA NITROGEN 16 MG/DL (7-18); CHLORIDE 105 MEQ/L (98-107); GLOMERULAR FILTRATION RATE 73 ML/MIN (>89); POTASSIUM 3.8 MEQ/L (3.5-5.1); SODIUM (NA) 141 MEQ/L (136-145)
[2017-03-24 03:09] LABS: HDL CHOLESTEROL 38.7 MG/DL (40.0-60.0); LDL CHOLESTEROL 107 MG/DL (0-99)
[2017-03-24 03:16] LABS: CREATINE KINASE 53 U/L (39-308)
[2017-03-24] MEDS: HEPARIN SODIUM - SQ 10,000 UNITS/ML VIAL SQ SCH ×3 (06:04→21:04)
[2017-03-24 06:48] LABS: AUTOMATED NEUTROPHIL # 7.7 TH/MM3 (1.8-7.7); BASOPHIL # 0.1 TH/MM3 (0-0.2); BASOPHIL % 0.8 % (0.0-2.0); EOSINOPHIL # 0.2 TH/MM3 (0-0.4); EOSINOPHIL % 1.7 % (0.0-4.0); HEMO FLAGS DIFF FINAL; LYMPH % 19.6 % (9.0-44.0); MEAN CELL VOLUME 82.2 FL (80.0-100.0); MEAN CORPUSCULAR HEMOGLOBIN 26.8 PG (27.0-34.0); MEAN CORPUSCULAR HGB CONC 32.6 % (32.0-36.0); MONO % 4.5 % (0.0-8.0); NEUT % 73.4 % (16.0-70.0); PLATELET COUNT 164 TH/MM3 (150-450); RED BLOOD COUNT 4.87 MIL/MM3 (4.50-5.90); RED CELL DISTRIBUTION WIDTH 14.9 % (11.6-17.2); WHITE BLOOD COUNT 10.4 TH/MM3 (4.0-11.0)
[2017-03-24] MEDS ORDERED: LISINOPRIL 10 MG TAB PO SCH (09:00)
[2017-03-24] MEDS: DULoxetine HCl DR 60 MG CAP PO SCH ×2 (09:00→21:02)
[2017-03-24] MEDS: METOPROLOL TARTRATE 100 MG TAB PO SCH ×2 (09:13→21:03)
[2017-03-24] MEDS: ASPIRIN 81 MG CHEW TAB CHEW SCH (09:13)
[2017-03-24] MEDS: FUROSEMIDE 20 MG/2 ML VIAL IV PUSH SCH ×2 (09:14→19:56)
[2017-03-24 09:26] LABS: CREATINE KINASE 48 U/L (39-308)
[2017-03-24] MEDS: ESCITALOPRAM OXALATE 20 MG TAB PO SCH (11:02)
[2017-03-24] MEDS: GABAPENTIN 400 MG CAP PO SCH ×2 (11:04→21:02)
[2017-03-24] MEDS: SODIUM CHLORIDE 0.9% FLUSH 10 ML FLUSH IV FLUSH SCH ×2 (11:05→21:03)
[2017-03-24] MEDS ORDERED: ENAL10TA PO (11:51)
[2017-03-24] MEDS ORDERED: METO1TAB43 PO (11:51)
--- NOTE | 2017-03-24 18:32 | EKG ---
Date Performed: 03/23/2017 Time Performed: 19:58:20 PTAGE: 51 years EKG: Atrial fibrillation with controlled ventricular rate Ventricular premature complex Slight n onspecific intraventricular conduction delay PREVIOUS TRACING : 01/14/2017 22.13 Compared to prior tracing no significant change DOCTOR: Federico Wilson Interpretating Date/Time 03/24/2017 18:32:14
--- NOTE | 2017-03-24 19:12 | EKG ---
Date Performed: 03/24/2017 Time Performed: 01:47:42 PTAGE: 51 years EKG: Atrial fibrillation with rapid ventricular response IV conduction defect Since previous tra cing, no significant change noted Abnormal ECG PREVIOUS TRACING : 03/23/2017 19.58 DOCTOR: Federico Wilson Interpretating Date/Time 03/24/2017 19:11:13
[2017-03-24] MEDS: ENALAPRIL MALEATE 10 MG TAB PO SCH (21:01)
[2017-03-24] MEDS: ACETAMINOPHEN 325 MG TAB PO PRN (21:43)
[2017-03-25] VITALS (29 sets, daily range): BP systolic 139–167; BP diastolic 71–115; PULSE 74–114; RESP 16–22; TEMP 97.8–99.2; O2SAT 91–96
[2017-03-25] MEDS ORDERED: NITROGLYCERIN-D5W 50 MG/250 ML 250 ML IV ONE (02:45)
[2017-03-25] MEDS ORDERED: NITROGLYCERIN-D5W 50 MG/250 ML 250 ML IV PRN (02:45)
[2017-03-25] MEDS: HEPARIN SODIUM - SQ 10,000 UNITS/ML VIAL SQ SCH ×3 (05:05→21:07)
--- NOTE | 2017-03-25 06:16 | MB ---
cc: GIANCARLO JANSEN DO DATE OF CONSULTATION March 24, 2017 REASON FOR CONSULTATION Abnormal EKG. Accelerated hypertension. HISTORY OF PRESENT ILLNESS Jasen Black is a 51-year-old male who presented to [facility] Emergency Room on March 23, 2017, due to shortness of breath. He states that his shortness of breath started in the past few days and has been getting worse. He feels that when he is taking a deep breath, he has trouble breathing. On arrival to the emergency room he was found to have a blood pressure of 230/166. When discussing this with him, he states that he has been noncompliant with his medications and when I ask him why, he really cannot give me an answer. He is currently hemodynamically stable without chest pain or shortness of breath. An EKG was found showing atrial fibrillation with nonspecific ST-T wave changes, possibly secondary to LVH. PAST MEDICAL HISTORY 1. Atrial fibrillation. 2. Hypertension. 3. Obstructive sleep baths apnea. 4. Congestive heart failure. 5. Chronic back pain. 6. Morbid obesity. PAST SURGICAL HISTORY 1. Cholecystectomy. 2. Tonsillectomy. 3. History of cardiac catheterization around two years ago with normal coronaries, per the patient. ALLERGIES CLINDAMYCIN ERYTHROMYCIN. RED DYE. MEDICATIONS 1. Toprol XL 100 mg daily. 2. Enalapril 10 mg b.i.d. 3. Aspirin 81 mg daily. 4. Oxycodone/acetaminophen 7.5/325 b.i.d. 5. Gabapentin 1200 mg b.i.d. 6. Duloxetine 60 mg b.i.d. 7. Lexapro 20 mg daily. FAMILY HISTORY Denies premature coronary artery disease or sudden cardiac within the family. SOCIAL HISTORY The patient quit smoking several years ago but previously smoked up to five packs per day. He occasionally drinks alcohol. Smokes marijuana. Denies other drugs. REVIEW OF SYSTEMS 14-systems were reviewed including osteopathic pertinent positives and negatives above, otherwise negative. PHYSICAL EXAMINATION VITAL SIGNS: Temperature 98.6, heart rate 84, blood pressure 142/66, respirations 20, pulse ox 95% on BiPap. IN GENERAL: The patient appears well, in no acute distress, alert, awake and oriented x3. Extraocular muscles intact. Mucous membranes moist. NECK: Supple. No JVD at 45 degrees. No carotid bruits heard bilaterally. Carotid upstroke is brisk in nature. HEART: Irregularly irregular. Positive first and second heart sounds with no noted murmurs, gallops or rubs. LUNGS: Decreased breath sounds most likely due to body habitus. ABDOMEN: Obese, nontender, nondistended. EXTREMITIES: Show trace edema bilaterally. NEUROLOGICALLY: No focal deficits. SKIN: Warm, dry and intact. OSTEOPATHIC: Mild lordosis. No kyphoscoliosis or paraspinal tender points. LABORATORY FINDINGS Hemoglobin 13.1, hematocrit 40, platelets 164. Potassium 3.8, BUN 16, creatinine 1.07. Troponin negative x3. Triglycerides 87, total cholesterol 163, LDL 107, HDL 38.7. ELECTROCARDIOGRAM (March 24, 2017 at 08:36) Atrial fibrillation with controlled ventricular response, incomplete left bundle branch block, nonspecific ST-T wave changes. IMPRESSIONS 1. Accelerated hypertension due to noncompliance. 1. Noncompliance with medications. 2. Shortness of breath most likely due to accelerated hypertension with possible diastolic dysfunction. 3. Atrial fibrillation. 4. History of extensive tobacco abuse. 5. Morbid obesity. RECOMMENDATIONS 1. Mr. Black presented with a blood pressure of 230/166, most likely due to noncompliance with his medications. 2. His shortness of breath is probably secondary to not only his accelerated hypertension with possible diastolic dysfunction from longstanding hypertension but also has morbid obesity and history of smoking. 3. He will continue on BiPap as necessary. 4. EKG shows nonspecific ST-T wave changes. His troponins are negative and he recently had a cardiac catheterization within the past few years which the patient states he had normal coronary arteries. 5. We will attempt to change his medications around for further blood pressure management. 6. We will attempt to obtain a 2-D echo, although this may be difficult with his overall body habitus. 7. As far as his atrial fibrillation goes, it appears that he is currently with a controlled rate. He previously was placed on only aspirin for anticoagulation due to concern with falls. I discussed this with him and he would like to continue on only aspirin therapy. 8. Further recommendations will be made based on the hospital course. Thank you for allowing me to see Jasen Black. If there are any questions please do not hesitate to call. Giancarlo Jansen DO VGP/SSB /12:01 AM /6:07 AM
[2017-03-25] MEDS: ACETAMINOPHEN 325 MG TAB PO PRN (06:24)
[2017-03-25] MEDS: GABAPENTIN 400 MG CAP PO SCH ×2 (08:11→21:06)
[2017-03-25] MEDS: ENALAPRIL MALEATE 10 MG TAB PO SCH ×2 (08:11→21:07)
[2017-03-25] MEDS: METOPROLOL SUCCINATE 50 MG EXTENDED RELEASE TAB PO SCH (08:11)
[2017-03-25] MEDS: ESCITALOPRAM OXALATE 20 MG TAB PO SCH (08:11)
[2017-03-25] MEDS: ASPIRIN 81 MG CHEW TAB CHEW SCH (08:11)
[2017-03-25] MEDS: DULoxetine HCl DR 60 MG CAP PO SCH ×2 (08:11→21:06)
[2017-03-25] MEDS: FUROSEMIDE 20 MG/2 ML VIAL IV PUSH SCH (08:12)
[2017-03-25] MEDS: SODIUM CHLORIDE 0.9% FLUSH 10 ML FLUSH IV FLUSH SCH ×2 (08:12→21:07)
[2017-03-25] MEDS ORDERED: NIFEdipine 20 MG CAP PO SCH (09:00)
[2017-03-25] MEDS ORDERED: cloNIDine HCL 0.2 MG TAB PO ONE (10:00)
[2017-03-25] MEDS ORDERED: PNEUMOCOCCAL POLYVALENT INJ 25 MCG/0.5 ML SYR IM ONE (10:00)
[2017-03-25] MEDS ORDERED: INFLUENZA VIRUS VACCINE (QUADRIVALENT) 0.5 ML SYR IM ONE (10:00)
--- NOTE | 2017-03-25 11:01 | EKG ---
Date Performed: 03/24/2017 Time Performed: 08:36:12 PTAGE: 51 years EKG: Atrial fibrillation. Incomplete LBBB Inferior/lateral T wave changes may be due to myocardi al ischemia Abnormal ECG PREVIOUS TRACING : 03/24/2017 01.47 DOCTOR: Jared Varghese Interpretating Date/Time 03/25/2017 11:01:07
[2017-03-25] MEDS: cloNIDine HCL 0.2 MG TAB PO SCH ×2 (13:34→18:46)
--- NOTE | 2017-03-25 16:04 | PD.CARD.PN ---
Subjective Subjective Remarks Patient seen this morning No events overnight Blood pressure better Still mild SOB Objective Medications Current Medications Medications (Trade) Dose Ordered Sig/Yi Route Start Time Stop Time Status Last Admin (Aspirin Chew) 81 mg DAILY CHEW 03/24/17 09:00 03/25/17 08:11 (Cymbalta Dr) 60 mg BID PO 03/24/17 09:00 03/25/17 08:11 (Lexapro) 20 mg DAILY PO 03/24/17 09:00 03/25/17 08:11 (Neurontin) 1,200 mg BID PO 03/24/17 09:00 03/25/17 08:11 (NS Flush) 2 ml BID IV FLUSH 03/24/17 09:00 03/25/17 08:12 (NS Flush) 2 ml UNSCH PRN IV FLUSH 03/23/17 23:15 (Heparin Inj) 5,000 units Q8HR SQ 03/24/17 06:00 03/25/17 13:35 (Lasix Inj) 20 mg BID@09,18 IV PUSH 03/24/17 09:00 03/25/17 08:12 (Trandate Inj) 10 mg Q4H PRN IV PUSH 03/24/17 02:45 03/24/17 02:58 (Vasotec) 10 mg BID PO 03/24/17 21:00 03/25/17 08:11 (Tylenol) 650 mg Q4H PRN PO 03/24/17 21:30 03/25/17 06:24 (Toprol Xl) 100 mg DAILY PO 03/25/17 09:00 03/25/17 08:11 Nitroglycerin/ Dextrose 250 ml @ 1.5 mls/hr TITRATE PRN IV 03/25/17 02:45 03/25/17 02:46 (Catapres) 0.2 mg TID PO 03/25/17 13:00 03/25/17 13:34 Vital Signs / I&O Vital Signs Date Time Temp Pulse Resp B/P (MAP) Pulse Ox O2 Delivery O2 Flow Rate FiO2 03/25/17 11:34 96 Nasal Cannula 3.00 03/25/17 07:33 98.8 102 22 167/115 (132) 95 03/25/17 07:33 Nasal Cannula 3.00 95 03/25/17 07:33 102 03/25/17 06:20 105 03/25/17 05:13 96 03/25/17 05:03 77 137/84 03/25/17 04:02 91 03/25/17 03:10 91 03/25/17 03:03 93 143/65 03/25/17 03:00 99.2 82 16 157/71 (99) 92 03/25/17 03:00 Bi-Pap 4.00 03/25/17 02:48 93 03/25/17 02:46 84 157/71 03/25/17 01:40 74 03/25/17 00:00 82 03/24/17 23:05 77 16 154/101 (118) 90 03/24/17 23:00 Bi-Pap 4.00 03/24/17 23:00 82 03/24/17 22:00 108 03/24/17 21:03 86 186/101 03/24/17 21:00 102 03/24/17 20:00 104 03/24/17 19:45 102 184/105 03/24/17 19:20 Bi-Pap 4.00 03/24/17 19:20 97.6 94 19 162/82 (108) 92 03/24/17 19:00 97 03/24/17 18:00 85 03/24/17 17:00 84 03/24/17 16:00 86 I/O 03/24/17 03/24/17 03/24/17 03/25/17 03/25/17 03/25/17 07:00 15:00 23:00 07:00 15:00 23:00 Intake Total 311 ml 696 ml 480 ml Output Total 950 ml 1300 ml 505 ml Balance -639 ml -604 ml -25 ml Intake Oral 240 ml 480 ml 480 ml IV Total 71 ml 216 ml Output Urine Total 950 ml 1300 ml 505 ml # Voids 6 # Bowel Movements 0 Physical Exam GENERAL: NAD, AAOx3 SKIN: Warm and dry. HEAD: Atraumatic. Normocephalic. EYES: Pupils equal and round. No scleral icterus. No injection or drainage. ENT: No nasal bleeding or discharge. Mucous membranes pink and moist. NECK: Trachea midline. No JVD. CARDIOVASCULAR: Irregularly irregular RESPIRATORY: No accessory muscle use. Decreased breath sounds bilaterally due to body habitus GASTROINTESTINAL: Abdomen soft, non-tender, nondistended. Hepatic and splenic margins not palpable. MUSCULOSKELETAL: Extremities without mild edema NEUROLOGICAL: Awake and alert. No obvious cranial nerve deficits. Motor grossly within normal limits. Five out of 5 muscle strength in the arms and legs. Normal speech. PSYCHIATRIC: Appropriate mood and affect; insight and judgment normal. Laboratory Laboratory Tests Test 03/24/17 17:15 03/25/17 04:26 Nasal Screen MRSA (PCR) MRSA NOT DETECTED Free Thyroxine 1.03 NG/DL Assessment and Plan Problem List: (1) Hypertensive emergency ICD Codes: I16.1 - Hypertensive emergency Status: Acute (2) Chest pain, rule out acute myocardial infarction ICD Codes: R07.9 - Chest pain, unspecified Status: Acute (3) Morbid obesity with BMI of 50.0-59.9, adult ICD Codes: E66.01 - Morbid (severe) obesity due to excess calories; Z68.43 - Body mass index (BMI) 50-59.9 , adult (4) JAIMEE (acute kidney injury) ICD Codes: N17.9 - Acute kidney failure, unspecified (5) Atrial fibrillation ICD Codes: I48.91 - Unspecified atrial fibrillation Assessment and Plan 1) Accelerated HTN Con't current mediations Will increase for further control Discussed adding Procardia for BP control 2) Afib Has been on ASA for anti-coagulation for Afib due to previous falls 3) EKG with mild changes Normal cath within 2 years Discussed with patient would prefer to not have ischemic work up Lastly concern for non-compliance and his overall weight being at the maximum of our table limit, would not be able to "float" the table if he did have an ischemic evaluation 4) Will plan to see Thursday if still here If concerns tomorrow, please call the covering physician Giancarlo Fish DO Mar 25, 2017 16:04
--- NOTE | 2017-03-25 16:46 | HHI.PR ---
Subjective Remarks RN reports no deteriorations since last night. Pt was still nitro drip this AM. Pt denies any CP, n/v. Nurse reports that his saturations actually fluctuate throughout the day, he was able confirmed two room air saturations at 93% in a slightly reclined to sitting up position. Objective Vital Signs Date Time Temp Pulse Resp B/P (MAP) Pulse Ox O2 Delivery O2 Flow Rate FiO2 03/25/17 11:34 96 Nasal Cannula 3.00 03/25/17 07:33 98.8 102 22 167/115 (132) 95 03/25/17 07:33 Nasal Cannula 3.00 95 03/25/17 07:33 102 03/25/17 06:20 105 03/25/17 05:13 96 03/25/17 05:03 77 137/84 03/25/17 04:02 91 03/25/17 03:10 91 03/25/17 03:03 93 143/65 03/25/17 03:00 99.2 82 16 157/71 (99) 92 03/25/17 03:00 Bi-Pap 4.00 03/25/17 02:48 93 03/25/17 02:46 84 157/71 03/25/17 01:40 74 03/25/17 00:00 82 03/24/17 23:05 77 16 154/101 (118) 90 03/24/17 23:00 Bi-Pap 4.00 03/24/17 23:00 82 03/24/17 22:00 108 03/24/17 21:03 86 186/101 03/24/17 21:00 102 03/24/17 20:00 104 03/24/17 19:45 102 184/105 03/24/17 19:20 Bi-Pap 4.00 03/24/17 19:20 97.6 94 19 162/82 (108) 92 03/24/17 19:00 97 03/24/17 18:00 85 03/24/17 17:00 84 I/O 03/24/17 03/24/17 03/24/17 03/25/17 03/25/17 03/25/17 07:00 15:00 23:00 07:00 15:00 23:00 Intake Total 311 ml 696 ml 480 ml Output Total 950 ml 1300 ml 505 ml Balance -639 ml -604 ml -25 ml Intake Oral 240 ml 480 ml 480 ml IV Total 71 ml 216 ml Output Urine Total 950 ml 1300 ml 505 ml # Voids 6 # Bowel Movements 0 Result Diagram: 03/24/1708 03/24/17 0229 Objective Remarks Unlabored breathing, heart sounds are regular rate and rhythm, no significant murmurs, has nasal cannula in nose, no cyanosis A/P Assessment and Plan Patient was eventually titrated off of nitroglycerin drip with good blood pressures. Spoke with echocardiogram tech who states on a gram still has not been performed. - Patient was started on scheduled clonidine today, continue enalapril, lopressor, will add on spironolactone Suspected chronic systolic CHF - Echocardiogram is to be done on the morning of 03/26 - We'll increase Lasix to 40 mg IV twice a day Obstructive sleep apnea - BiPAP DVT proph heparin Luis Kenyon MD Mar 25, 2017 16:46
[2017-03-25] MEDS ORDERED: methylPREDNISolone SOD SUCC 125 MG/2 ML VIAL IV PUSH ONE (18:00)
[2017-03-25] MEDS: FUROSEMIDE 40 MG/4 ML VIAL IV PUSH SCH (18:47)
[2017-03-26] VITALS (19 sets, daily range): BP systolic 124–158; BP diastolic 69–98; PULSE 70–104; RESP 18–20; TEMP 98–98.6; O2SAT 91–95
[2017-03-26] MEDS: HEPARIN SODIUM - SQ 10,000 UNITS/ML VIAL SQ SCH ×2 (06:18→14:12)
[2017-03-26] MEDS: METOPROLOL SUCCINATE 50 MG EXTENDED RELEASE TAB PO SCH (08:56)
[2017-03-26] MEDS: GABAPENTIN 400 MG CAP PO SCH (08:59)
[2017-03-26] MEDS: DULoxetine HCl DR 60 MG CAP PO SCH (08:59)
[2017-03-26] MEDS: ASPIRIN 81 MG CHEW TAB CHEW SCH (08:59)
[2017-03-26] MEDS: SODIUM CHLORIDE 0.9% FLUSH 10 ML FLUSH IV FLUSH SCH (09:07)
[2017-03-26] MEDS: FUROSEMIDE 40 MG/4 ML VIAL IV PUSH SCH (09:08)
[2017-03-26] MEDS: cloNIDine HCL 0.2 MG TAB PO SCH ×2 (09:08→14:12)
[2017-03-26] MEDS: ENALAPRIL MALEATE 10 MG TAB PO SCH (09:08)
[2017-03-26] MEDS: ESCITALOPRAM OXALATE 20 MG TAB PO SCH (09:09)
[2017-03-26] MEDS ORDERED: SPIR25 PO (09:52)
[2017-03-26] MEDS ORDERED: ENAL10TA PO (09:52)
[2017-03-26] MEDS ORDERED: CLON.2 PO (09:52)
[2017-03-26] MEDS ORDERED: METO1TAB43 PO (09:57)
--- NOTE | 2017-03-26 09:58 | HHI.DCPOC ---
Discharge Care Plan Diagnosis: (1) Hypertensive emergency Additional Problems You must see your regular doctor within 1 week and have your electrolytes and kidney function checked. Goals to Promote Your Health * To prevent worsening of your condition and complications * To maintain your health at the optimal level Directions to Meet Your Goals Take your medications as prescribed Follow your dietary instruction Follow activity as directed Keep your appointments as scheduled Take your immunizations and boosters as scheduled If your symptoms worsen call your PCP, if no PCP go to Urgent Care Center or Emergency Room Smoking is Dangerous to Your Health. Avoid second hand smoke Call the 24-hour hour crisis hotline for domestic abuse at Luis Kenyon MD Mar 26, 2017 09:58
[2017-03-26] MEDS ORDERED: SPIRONOLACTONE 25 MG TAB PO SCH (10:00)
[2017-03-26] MEDS ORDERED: POTASSIUM CHLORIDE 10 MEQ CONTROLLED RELEASE TAB PO SCH (10:00)
[2017-03-26] MEDS ORDERED: FUROSEMIDE 40 MG TAB PO SCH (10:00)
--- NOTE | 2017-03-26 14:53 | ECHRPT ---
Indication: Essential (primary) hypertension CONCLUSIONS The left ventricular systolic function is moderately reduced with an estimated ejection fraction in the range of 40-45%. Mild concentric left ventricular hypertrophy. Normal left ventricular size. There is mild tricuspid valve regurgitation. The estimated pulmonary arterial pressure is 29.9 mmHg. BP: 167 / 115 HR: 102 Rhythm: Sinus MEASUREMENTS (Male / Female) Normal Values Technical Quality:Technically difficult study 2D ECHO LV Diastolic Diameter PLAX 6.0 cm 4.2 - 5.9 / 3.9 - 5.3 cm LV Systolic Diameter PLAX 5.0 cm IVS Diastolic Thickness 1.3 cm 0.6 - 1.0 / 0.6 - 0.9 cm LVPW Diastolic Thickness 1.3 cm 0.6 - 1.0 / 0.6 - 0.9 cm LV Relative Wall Thickness 0.4 LVOT Diameter 2.5 cm M-MODE Aortic Root Diameter MM 3.5 cm LA Systolic Diameter MM 5.0 cm LA Ao Ratio MM 1.4 AV Cusp Separation MM 2.2 cm DOPPLER AV Peak Velocity 96.4 cm/s AV Peak Gradient 3.7 mmHg LVOT Peak Velocity 40.1 cm/s LVOT Peak Gradient 0.6 mmHg AV Area Cont Eq pk 2.0 cm LV E' Lateral Velocity 5.9 cm/s TR Peak Velocity 223.0 cm/s TR Peak Gradient 19.9 mmHg Right Atrial Pressure 10.0 mmHg Pulmonary Artery Systolic Pressu 29.9 mmHg Right Ventricular Systolic Press 29.9 mmHg PV Peak Velocity 88.2 cm/s PV Peak Gradient 3.1 mmHg FINDINGS LEFT VENTRICLE The left ventricular systolic function is moderately reduced with an estimated ejection fraction in the range of 40-45%. Mild concentric left ventricular hypertrophy. Normal left ventricular size. RIGHT VENTRICLE Normal right ventricular size and systolic function. LEFT ATRIUM The left atrial size is normal. RIGHT ATRIUM The right atrial size is normal. ATRIAL SEPTUM Normal atrial septal thickness without atrial level shunting by limited color doppler interrogation. AORTA The aortic root and proximal ascending aorta are normal in size on limited imaging. MITRAL VALVE Structurally normal mitral valve. No mitral valve stenosis or regurgitation. AORTIC VALVE Trileaflet aortic valve. No aortic valve stenosis or regurgitation. TRICUSPID VALVE There is mild tricuspid valve regurgitation. The estimated pulmonary arterial pressure is 29.9 mmHg. PULMONARY VALVE No pulmonary valve regurgitation or stenosis. VESSELS The inferior vena cava is normal in size. PERICARDIUM No pericardial effusion. Hilario Moss MD (Electronically Signed) Final Date:26 March 2017 14:52
[2017-03-26] MEDS ORDERED: FURO1TAB60 PO (15:08)
[2017-03-26] MEDS ORDERED: KLOR10TA6 PO (15:08)
--- NOTE | 2017-03-26 15:12 | HHI.DS ---
Discharge Summary Admission Date Mar 23, 2017 at 22:14 Discharge Date: Mar 26, 2017 Admitting Diagnosis Hypertensive urgency, cp ro mi (1) Hypertensive emergency ICD Code: I16.1 - Hypertensive emergency Procedures none Brief History - From Admission 51-year-old male with a past medical history significant for hypertension, CHF ( ECHO done in 01/18 - unable to assess LV function 2/2 body habitus), chronic back pain and A. fib anticoagulated with aspirin presents with increasing shortness of breath and chest pain. Patient reports his shortness of breath began with exertion this morning upon waking. He reports that he continued to be short of breath throughout the day and that it is worsening. He has a known history of CHF. Denies any lower extremity edema. The patient also reports intermittent chest pain since this morning. He reports the pain as a tightening sensation and believes it is coming from his lungs. On arrival to the emergency department he was found to have a blood pressure of 229/166. EKG significant for atrial fibrillation with occasional PVCs heart rate of 98. Troponin less than 0.02, BNP 534. The patient was started on a nitro drip in the ED and his chest pain resolved. He states he is still short of breath. CBC/BMP: 03/24/17 0608 03/24/17 0229 Significant Findings Laboratory Tests Test 03/23/17 20:25 03/24/17 02:29 03/24/17 06:08 03/24/17 08:09 White Blood Count 13.1 TH/MM3 (4.0-11.0) Neutrophils (%) (Auto) 85.4 % (16.0-70.0) 73.4 % (16.0-70.0) Neutrophils # (Auto) 11.2 TH/MM3 (1.8-7.7) Prothrombin Time 12.0 SEC (9.8-11.6) Activated Partial Thromboplast Time 30.4 SEC (24.3-30.1) Random Glucose 111 MG/DL (74-106) 111 MG/DL (74-106) Albumin 3.3 GM/DL (3.4-5.0) Total Bilirubin 1.2 MG/DL (0.2-1.0) Estimat Glomerular Filtration Rate 70 ML/MIN (>89) 73 ML/MIN (>89) Troponin I LESS THAN 0.02 NG/ML LESS THAN 0.02 NG/ML LESS THAN 0.02 NG/ML B-Type Natriuretic Peptide 534 PG/ML (0-100) Lipase 71 U/L (73-393) LDL Cholesterol 107 MG/DL (0-99) HDL Cholesterol 38.7 MG/DL (40.0-60.0) Mean Corpuscular Hemoglobin 26.8 PG (27.0-34.0) Thyroid Stimulating Hormone 3rd Gen 5.330 uIU/ML (0.358-3.740) Test 03/24/17 17:15 03/25/17 04:26 PE at Discharge clear lungs BL, good aeration NAD, sitting up in bed Hospital Course Patient was admitted, started on IV nitroglycerin for blood pressure control. His chest pain had resolved once the blood pressure became under normal control. Cardiology was consulted for possible EKG changes which were deemed not concerning for any acute infarction or unstable angina. Echocardiogram was performed which showed an EF of 40-45%. He did demonstrate sustained saturations > 90% on room air which would then only dip if he will laid down for prolonged periods of time at which point he would put his BiPAP on. Patient was successfully transition to oral antihypertensives with additional scripts of spironolactone, lasix, and clonidine. He was counseled extensively on compliance as well as following up with his primary care provider to check his electrolytes and kidney function within 1 week. Patient has met maximum benefit from hospital physician and is clinically stable for discharge. Pt Condition on Discharge: Stable Discharge Disposition: Discharge Home Discharge Time: > 30 minutes Discharge Instructions DIET: Follow Instructions for: Heart Healthy Diet, Low Sodium Diet Follow up Referrals: PCP Follow-up - 1 Week New Medications: Furosemide (Lasix) 40 Mg Tab 40 MG PO DAILY for heart failure, #30 TAB 0 Refills Potassium Chloride Microencaps (Klor-Con M10) 10 Meq Tab 10 MEQ PO DAILY for Electrolyte Replacement, #30 TAB 0 Refills Clonidine (Catapres) 0.2 Mg Tab 0.2 MG PO Q8HR for Blood Pressure Management, #90 TAB May start taking at 8am, followed by every 8 hrs Spironolactone (Aldactone) 25 Mg Tab 25 MG PO DAILY for blood pressure management, #30 TAB Changed Medications: Enalapril (Enalapril) 10 Mg Tab 10 MG PO Q12HR for Blood Pressure Management, #60 TAB 0 Refills (Changed from: BID) may start at 8 am first dose Metoprolol Succinate ER 24 HR (Metoprolol Succinate ER 24 HR) 100 Mg Tab 100 MG PO DAILY for Blood Pressure Management, #30 TAB 0 Refills (Medication details modified) may take first dose at 8 am Continued Medications: Aspirin (Aspirin Low Dose) 81 Mg Chew 81 MG CHEW DAILY for Blood Clot Prevention, #30 TAB [address] (Duloxetine DR) 60 Mg Capdr 60 MG PO BID for Depression Control, #60 CAP 0 Refills Escitalopram (Lexapro) 20 Mg Tab 20 MG PO DAILY for Depression Control, #30 TAB 0 Refills Gabapentin (Gabapentin) 600 Mg Tab 1200 MG PO BID for neuropathy, #60 TAB 0 Refills Oxycodone-Acetaminophen (Oxycodone-Acetaminophen) 7.5-325 mg Tab 1 TAB PO BID, TAB 0 Refills Luis Kenyon MD Mar 26, 2017 15:12
== END 2017-03-26 17:47 | disposition home or self-care (01) | DRG 305 ==
LOC: NEPC 19:44 → NEDA 22:14 → HCPC 23:56
PROVIDERS: ADMIT Hospitalist; ATTEND Hospitalist
DX: I16.1 Hypertensive emergency (principal); N17.9 Acute kidney failure, unspecified; I50.22 Chronic systolic (congestive) heart failure; Z68.44 Body mass index [BMI] 60.0-69.9, adult; I13.0 Hypertensive heart and chronic kidney disease with heart failure and stage 1 through stage 4 chronic kidney disease, or unspecified chronic kidney disease; G47.33 Obstructive sleep apnea (adult) (pediatric); E66.01 Morbid (severe) obesity due to excess calories; R07.9 Chest pain, unspecified; I48.2 Chronic atrial fibrillation; N18.9 Chronic kidney disease, unspecified; J45.909 Unspecified asthma, uncomplicated; R41.3 Other amnesia; I49.3 Ventricular premature depolarization; G89.29 Other chronic pain; M54.9 Dorsalgia, unspecified; F12.90 Cannabis use, unspecified, uncomplicated; F32.9 Major depressive disorder, single episode, unspecified; Z23 Encounter for immunization; Z87.891 Personal history of nicotine dependence; Z88.1 Allergy status to other antibiotic agents; Z91.14 Patient's other noncompliance with medication regimen
CPT/HCPCS: 71010; 71275; 74174; 76937; 80048; 80053; 80061; 82550; 83690; 83735; 83880; 84439; 84443; 84484; 85025; 85610; 85730; 87641; 90686; 90732; 93005; 93306; 96374; 96376; J0360; J1644; J1940; J2930; Q0163; Q2038; Q9967

== ENCOUNTER 2017-05-18 22:35 | Inpatient (IN) | payer OTHER, MEDICARE ==
[~2017-05-18 22:35] MED LIST changes: +CLON.2 PO; +ENAL10TA PO; +FURO1TAB60 PO; +KLOR10TA6 PO; -LISI10TA3 PO; -METO100T PO; +METO1TAB43 PO; -NYST10007 TOPICAL; +SPIR25 PO
[2017-05-18 22:42] VITALS: BP 186/75; PULSE 148; RESP 20; TEMP 99.3; O2SAT 74
[2017-05-18] MEDS ORDERED: ETOMIDATE 40 MG/20 ML VIAL ONE (22:47)
[2017-05-18] MEDS ORDERED: SUCCINYLCHOLINE CHLORIDE 200 MG/10 ML VIAL ONE (22:48)
[2017-05-18 23:04] VITALS: O2SAT 0
[2017-05-18] MEDS ORDERED: SUCCINYLCHOLINE CHLORIDE 200 MG/10 ML VIAL IV PUSH ONE (23:15)
[2017-05-18] MEDS: RESP: ALBUTEROL 2.5 MG/IPRATROPIUM 0.5 MG NEB (SCH) INH ×3 (23:15→23:45)
[2017-05-18] MEDS ORDERED: FUROSEMIDE 100 MG/10 ML VIAL IVP ONE (23:15)
[2017-05-18] MEDS ORDERED: ETOMIDATE 20 MG/10 ML VIAL IVP ONE (23:15)
[2017-05-18] MEDS ORDERED: SODIUM CHLORIDE 0.9% FLUSH 10 ML FLUSH IVF PRN (23:15)
[2017-05-18] MEDS ORDERED: PROPOFOL 1000 MG/100 ML INJ 100 ML ONE (23:18)
[2017-05-18 23:28] VITALS: RESP 20; O2SAT 73
--- NOTE | 2017-05-18 23:37 | PD ---
HPI Chief Complaint: Respiratory Distress Time Seen by Provider: 23:10 Travel History International Travel<30 days: No Contact w/Intl Traveler<30days: No History of Present Illness HPI The patient is 51 year old male who presents to the [facility] emergency department with a history of shortness of breath that has reportedly been gradually worsening over the last 2 days. The patient has had increased congestion and cough according to ambulance services. The patient had reported to them that his cough has become productive of phlegm today. The patient has a prior history of congestive heart failure, COPD, hypertension, and atrial fibrillation. According to ambulance services on their arrival, the patient was noted to be blue with increased work of breathing and low O2 saturations on room air. The patient was placed on 2 albuterol nebulizer treatments and given 125 mg of Solu-Medrol IV, however the patient continued to worsen. The patient was prepped for intubation was given 20 mg of etomidate and 4 mg of Ativan IV prior to arrival. Multiple attempts were made at intubation, however this was unsuccessful with an endotracheal tube, therefore the patient had a Combitube tube placed. The patient at some point did vomit as the patient's face is covered in emesis. The patient's Combitube has emesis in the tube. The patient reportedly lost his pulse on the ambulance ramp and ACLS protocol was started, chest compressions were provided. The patient was given one epinephrine prior to arriving into his ER room. The patient is noted to be on telemetry and and irregular tachycardic rhythm with a narrow complex. While chest compressions were continued a second dose of epinephrine was administered. The patient is unable to provide any history as he was intubated prior to arrival. The patient's arrives at the bedside and later is able to report that he has a history of what he thought was sinus congestion that rapidly progressed throughout the day today. He has a history of high blood pressure and was on clonidine, however he ran out of this medication yesterday. She reports that he was nauseated earlier today, however he had not vomited earlier. She reports that he did have palpitations prior to calling ambulance services. She denies him having any reported chest pain. She reports that he quit smoking in 2003. [facility] Past Medical History Narrative Medical The patient's past medical history is significant for morbid obesity, history of chest pain with mild coronary artery disease on his last cardiac catheterization approximately 2-1/2 years ago, history of congestive heart failure, hyperlipidemia, hypertension, atrial fibrillation, COPD, sleep apnea Medical History: Unable to Obtain Asthma: Yes (reactive airway ) Atrial Fibrillation: Yes Depression: Yes Heart Rhythm Problems: Yes Cancer: No Cardiovascular Problems: Yes High Cholesterol: Yes Chest Pain: Yes Congestive Heart Failure: Yes Diminished Hearing: No Endocrine: No GERD: Yes Genitourinary: Yes (incontinent ) Headaches: Yes Hypertension: Yes Immune Disorder: No Implanted Vascular Access Dvce: No Kidney Stones: Yes Musculoskeletal: Yes (carpal tunnel ) 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 Surgical History: Unable to Obtain Abdominal Surgery: Yes (cholesyectomy) Cardiac Surgery: Yes Cholecystectomy: Yes Oral Surgery: Yes (tonsilectomy ) Tonsillectomy: Yes Other Surgery: Yes Social History Alcohol Use: No Tobacco Use: No Substance Use: Yes (marijuana months ago) Allergies-Medications (Allergen,Severity, Reaction): Coded Allergies: clindamycin (Unverified Allergy, Severe, Hives, 05/18/17) erythromycin base (Unverified Allergy, Severe, Hives, 05/18/17) red dye (Unverified Allergy, Unknown, 05/18/17) Reported Meds & Prescriptions Reported Meds & Active Scripts Active Klor-Con M10 (Potassium Chloride Microencaps) 10 Meq Tab 10 Meq PO DAILY Lasix (Furosemide) 40 Mg Tab 40 Mg PO DAILY Metoprolol Succinate ER 24 HR (Metoprolol Succinate) 100 Mg Tab 100 Mg PO DAILY may take first dose at 8 am Aldactone (Spironolactone) 25 Mg Tab 25 Mg PO DAILY Catapres (Clonidine) 0.2 Mg Tab 0.2 Mg PO Q8HR May start taking at 8am, followed by every 8 hrs Enalapril (Enalapril Maleate) 10 Mg Tab 10 Mg PO Q12HR may start at 8 am first dose Duloxetine DR (Duloxetine HCl) 60 Mg Capdr 60 Mg PO BID Aspirin Low Dose (Aspirin) 81 Mg Chew 81 Mg CHEW DAILY Gabapentin 600 Mg Tab 1,200 Mg PO BID Lexapro (Escitalopram Oxalate) 20 Mg Tab 20 Mg PO DAILY Bariatric Rollator/Extra (Device) 1 Mis Mis Ea .ROUTE DIRECTED Reported Oxycodone-Acetaminophen 7.5-325 mg Tab 1 Tab PO BID Review of Systems ROS Limitations: Intubated HENT: Positive: Congestion Cardiovascular: Positive: Dyspnea on exertion Respiratory: Positive: Cough Gastrointestinal: Positive: Nausea Physical Exam Narrative General: The patient is a well-developed, morbidly obese male with CPR in progress on arrival. Head and Neck exam: Head is normocephalic atraumatic. The patient has emesis on his face and in his hair. Eyes: The patient is unresponsive, therefore x-ray, motion testing was unable to be accomplished. The patient's pupils are dilated at 6 mm and sluggish to react to light. Nose: Midline septum with pink mucous membranes Mouth: Dentition is poor throughout his mouth with multiple broken teeth noted. The patient has a Combitube in place obscuring his posterior oropharynx being visualized. The patient's Combitube is noted to have emesis in the tube. Neck: No palpable lymphadenopathy. No nuchal rigidity. No thyromegaly. Cardiovascular: Initially no cardiac activity was able to be auscultated, however after a second dose of epinephrine the patient had what appeared to be atrial fibrillation with RVR, tachycardic auscultated heart sounds. Lungs: Crackles audible bilaterally. No wheezes or rhonchi audible. The patient was noted to be spontaneously breathing after return of spontaneous circulation. Abdomen: Soft, without tenderness to palpation in all 4 quadrants of the abdomen. No guarding, rebound, or rigidity. Extremities: No clubbing or cyanosis. The patient has 1+ edema bilateral lower extremities. 2+ pulses in all 4 extremities. Neurologic Exam: GCS is 3 on arrival. Skin Exam: No rash noted. Intact skin that is warm and dry. Data Data Last Documented VS Vital Signs Date Time Temp Pulse Resp B/P (MAP) Pulse Ox O2 Delivery O2 Flow Rate FiO2 05/19/17 00:40 84 100 05/19/17 00:36 107 147/84 05/19/17 00:03 100.4 16 Auto-Vent 05/18/17 22:42 15.00 Orders Orders Etomidate Inj (Amidate Inj) (05/18/17 22:47) Succinylcholine Inj (Quelicin Inj) (05/18/17 22:48) Complete Blood Count With Diff (05/18/17 23:10) Comprehensive Metabolic Panel (05/18/17 23:10) B-Type Natriuretic Peptide (05/18/17 23:10) Act Partial Throm Time (Ptt) (05/18/17 23:10) Prothrombin Time / Inr (Pt) (05/18/17 23:10) Magnesium (Mg) (05/18/17 23:10) Ckmb (Isoenzyme) Profile (05/18/17 23:10) Troponin I (05/18/17 23:10) Urinalysis - C+S If Indicated (05/18/17 23:10) Influenzae A/B Antigen (05/18/17 23:10) Blood Culture (05/18/17 23:10) Iv Access Insert/Monitor (05/18/17 23:10) Electrocardiogram (05/18/17 23:10) Ecg Monitoring (05/18/17 23:10) Oximetry (05/18/17 23:10) Oxygen Administration (05/18/17 23:10) Chest, Single Ap (05/18/17 23:10) Urinary Catheter Insert/Apply (05/18/17 23:10) Sodium Chloride 0.9% Flush (Ns Flush) (05/18/17 23:15) Furosemide Inj (Lasix Inj) (05/18/17 23:15) Albuterol-Ipratropium Neb (Duoneb Neb) (05/18/17 23:15) Ng Gastric Tube Insert/Monitor (05/18/17 23:10) Etomidate Inj (Amidate Inj) (05/18/17 23:15) Succinylcholine Inj (Quelicin Inj) (05/18/17 23:15) Propofol 1000 Mg/100 Ml Inj (Diprivan 10 (05/18/17 23:18) Propofol 1000 Mg/100 Ml Inj (Diprivan 10 (05/18/17 23:45) ^ Infusion (05/18/17 23:32) RASS (05/18/17 23:32) Neurological Rass Scale AMBROSE.Q2H (05/18/17 23:32) Lactic Acid Sepsis Protocol (05/18/17 23:33) Diltiazem Inj (Cardizem Inj) (05/18/17 23:45) Diltiazem Inj (Cardizem Inj) (05/18/17 23:45) Sodium Chloride 0.9% Flush (Ns Flush) (05/18/17 23:45) Urine Culture (05/18/17 23:15) Aspirin Supp (Aspirin Supp) (05/19/17 00:15) Nitroglycerin-D5w 50 Mg/250 Ml (Nitrogly (05/19/17 00:15) Heparin Inj (Heparin Inj) (05/19/17 00:15) Consult Cardiology (05/19/17 ) CKMB (05/18/17 23:20) CKMB% (05/18/17 23:20) Arterial Blood Gas (Abg) (05/19/17 00:20) Neurological Rass Scale Q30MX2,Q2HX4,Q4H (05/19/17 00:32) Fentanyl Inj (Fentanyl Inj) (05/19/17 00:45) Fentanyl Drip (Fentanyl Drip) (05/19/17 00:45) Notify Dr: Other (05/19/17 00:40) Bedside Glucose .As Directed (05/19/17 00:40) Hypoglycemia Cc <80 Mg/Dl (05/19/17 00:40) Insulin Regular (Iv Infusion) (Novolin R (05/19/17 00:45) Dextrose 50% In Vish (Vial) Inj (D50w (Vi (05/19/17 00:45) Misc Information (05/19/17 00:45) Ob/Psych Drug Screen, Urine (05/19/17 00:40) Admit Order (Ed Use Only) (05/19/17 00:38) Phosphorus (Po4) (05/18/17 23:20) Labs Laboratory Tests Test 05/18/17 23:15 05/18/17 23:20 05/19/17 00:20 Urine Color YELLOW Urine Turbidity HAZY Urine pH 7.5 Urine Specific Sharon 1.010 Urine Protein 30 mg/dL Urine Glucose (UA) NEG mg/dL Urine Ketones NEG mg/dL Urine Occult Blood SMALL Urine Nitrite POS Urine Bilirubin NEG Urine Urobilinogen LESS THAN 2.0 MG/DL Urine Leukocyte Esterase MOD Urine RBC 20 /hpf Urine WBC 30 /hpf Urine Amorphous Sediment RARE Urine Bacteria MANY /hpf Urine Mucus FEW /lpf Microscopic Urinalysis Comment CULTURE INDICATED Urine Opiates Screen NEG Urine Barbiturates Screen NEG Urine Amphetamines Screen NEG Urine Benzodiazepines Screen NEG Urine Cocaine Screen NEG Urine Cannabinoids Screen NEG White Blood Count 16.1 TH/MM3 Red Blood Count 4.92 MIL/MM3 Hemoglobin 13.7 GM/DL Hematocrit 42.1 % Mean Corpuscular Volume 85.5 FL Mean Corpuscular Hemoglobin 27.8 PG Mean Corpuscular Hemoglobin Concent 32.5 % Red Cell Distribution Width 15.9 % Platelet Count 206 TH/MM3 Mean Platelet Volume 10.5 FL Neutrophils (%) (Auto) 68.1 % Lymphocytes (%) (Auto) 25.6 % Monocytes (%) (Auto) 2.9 % Eosinophils (%) (Auto) 2.2 % Basophils (%) (Auto) 1.2 % Neutrophils # (Auto) 11.0 TH/MM3 Lymphocytes # (Auto) 4.1 TH/MM3 Monocytes # (Auto) 0.5 TH/MM3 Eosinophils # (Auto) 0.3 TH/MM3 Basophils # (Auto) 0.2 TH/MM3 CBC Comment AUTO DIFF Differential Total Cells Counted 100 Neutrophils % (Manual) 77 % Band Neutrophils % 2 % Lymphocytes % 14 % Monocytes % 3 % Eosinophils % 2 % Basophils % 1 % Neutrophils # (Manual) 12.9 TH/MM3 Metamyelocytes 1 % Differential Comment FINAL DIFF MANUAL Smudge Cells PRESENT Platelet Estimate NORMAL Platelet Morphology Comment NORMAL Prothrombin Time 10.9 SEC Prothromb Time International Ratio 1.1 RATIO Activated Partial Thromboplast Time 26.6 SEC Blood Urea Nitrogen 18 MG/DL Creatinine 1.71 MG/DL Random Glucose 283 MG/DL Total Protein 8.5 GM/DL Albumin 3.4 GM/DL Calcium Level 8.1 MG/DL Phosphorus Level 7.9 MG/DL Magnesium Level 2.5 MG/DL Alkaline Phosphatase 139 U/L Aspartate Amino Transf (AST/SGOT) 95 U/L Alanine Aminotransferase (ALT/SGPT) 64 U/L Total Bilirubin 0.9 MG/DL Sodium Level 139 MEQ/L Potassium Level 4.3 MEQ/L Chloride Level 101 MEQ/L Carbon Dioxide Level 28.3 MEQ/L Anion Gap 10 MEQ/L Estimat Glomerular Filtration Rate 42 ML/MIN Total Creatine Kinase 144 U/L Creatine Kinase MB 2.5 NG/ML Troponin I 0.05 NG/ML B-Type Natriuretic Peptide 354 PG/ML Triglycerides Level 821 MG/DL Cholesterol Level 175 MG/DL LDL Cholesterol MG/DL HDL Cholesterol 29.3 MG/DL Cholesterol/HDL Ratio 5.97 RATIO Blood Gas Puncture Site RT RADIAL Blood Gas Patient Temperature 98.6 Blood Gas HCO3 27 mmol/L Blood Gas Base Excess -0.5 mmol/L Blood Gas Oxygen Saturation 74 % Arterial Blood pH 7.17 Arterial Blood Partial Pressure CO2 78 mmHg Arterial Blood Partial Pressure O2 48 mmHG Arterial Blood Oxygen Content 14.2 Vol % Arterial Blood Carboxyhemoglobin 0.9 % Arterial Blood Methemoglobin 0.7 % Blood Gas Hemoglobin 13.8 G/DL Oxygen Delivery Device VENTILATOR Blood Gas Ventilator Setting Blood Gas Inspired Oxygen 100 % [facility] Medical Decision Making Medical Screen Exam Complete: Yes Emergency Medical Condition: Yes Medical Record Reviewed: Yes Interpretation(s) Last Impressions Chest X-Ray 05/18/17 2310 Signed Impressions: Service Date/Time: Thursday, May 18, 2017 23:34 - CONCLUSION: 1. Cardiomegaly 2. Hazy density seen throughout the lungs related to a combination of bilateral effusions and areas of consolidation and atelectasis. 3. ET tube in good position. 4. Suspected NG tube in the distal esophagus. Waqar Solano MD Differential Diagnosis COPD exacerbation with respiratory failure, versus congestive heart failure exacerbation with respiratory failure, versus pneumonia, versus influenza, versus acute coronary syndrome Narrative Course During the course of the patients emergency department visit, the patients history, examination, and differential diagnosis were reviewed with the patient. The patient was placed on a internet marketing executive with oximetry and frequent blood pressure monitoring. The patient had IV access obtained and blood work sent for analysis. Blood sugar was noted to be 216. The patient was initially provided etomidate 20 mg IV, some succinylcholine 120 mg IV. The patient was intubated with an 8 size endotracheal tube by md. An EKG was done after the patient's airway was able eyes. The patient had atrial fibrillation with RVR on his EKG with a heart rate of 148, moderate intraventricular conduction today with ST segment elevation in lead 3, aVF, ST depression in lead 1, aVL, V5, V6. A call was placed out to Dr. Iyer the peer health promoter shell mold bonder for STEMI alert at 11:56AM. He requested to review the patient's prior EKG an EKG done at this time, as well as EKG done after Cardizem 30 mg IV was administered and the patient's heart rate came down to the 70s to 80s. The first 2 EKGs were reviewed by him. The third was transmitted after was obtained and continued to show with a slower rate ST segment elevation in lead 3 and aVF. We discussed this further by phone again, he requested that a STEMI alert be called. The patient was given aspirin per his OG tube. The patient was started on a nitroglycerin drip. The patient's blood pressure improved down into the 140s systolic. The patients laboratory studies were reviewed and remarkable for [-]. Radiology studies were reviewed and remarkable for [-] The patient's ABG was noted to have a pH is 7.17, PCO2 77.7, PO2 47.6 on 100% FiO2, bicarbonate 27.2. I discussed this with the brake reliner, Dr. Tan who recommended increasing his PEEP, however respiratory therapy changed the patient 's ventilator settings to biphasic and his O2 saturations seemed to be improving. The patients results were discussed with the patient, including the plan of care. I explained that further testing and/ or monitoring is indicated based on the patients history, examination, and/ or laboratory findings. Therefore, I recommended admission for additional evaluation. The patient expressed understanding and was agreeable with this plan. The patient was admitted to the hospital in critical condition and sent to a bed under the care of the brake reliner service. Critical Care Narrative Aggregate critical care time was 45 minutes. Time to perform other separately billable procedures was not included in the critical care time. My time did not include minutes spent treating any other patients simultaneously or on activities that did not directly contribute to the patient's treatment. The services I provided to this patient were to treat and/or prevent clinically significant deterioration that could result in: [-] I provided critical care services requiring my management, as noted below: Chart data review, documentation time, medication orders and management, vital sign assessments/reviewing monitor data, ordering and reviewing lab tests, ordering and interpreting/reviewing x-rays and diagnostic studies, care of the patient and discussion of the patient with the admitting physicians. Procedures Procedure Narrative The patient was put in optimal position for the procedure. Rapid sequence intubation was initiated by me using 20 milligrams of etomidate IV and 120 milligrams of succinylcholine IV. The patient was intubated with a 8 cuffed endotracheal tube. The patient was extremely difficult to intubate due to his short neck, protuberant chest, overall body habitus. Initially an attempt was made with the CMAC using the difficult airway laryngoscope blade, however this was not able to be fully introduced into his mouth, therefore I switched to the Mac blade for the CMAC device. Again this was not able to be introduced into his mouth. In between these attempts at intubation the patient was bagged by respiratory therapy. The patient was also on 15 L nasal cannula O2 to support apneic Oxygenation. In the end the patient's airway was best visualized with a size 4 laryngoscope. Tube placement was confirmed by visualization of the tube and balloon passing through the cords, capnometry and subsequent chest x-ray. Breath sounds were equal and well aerated bilaterally postintubation. No breath sounds over stomach. Patient tolerated procedure well. Physician Communication Physician Communication The patient's case including history, pertinent physical examination findings, and laboratory studies were discussed with Dr. Iyer and Dr. Tan the brake reliner physician. It was agreed that the patient will be admitted to the intensive care service. Diagnosis Primary Impression: Shortness of breath Additional Impressions: Respiratory failure Qualified Codes: J96.00 - Acute respiratory failure, unspecified whether with hypoxia or hypercapnia STEMI (ST elevation myocardial infarction) Qualified Codes: I21.3 - ST elevation (STEMI) myocardial infarction of unspecified site Admitting Information Admitting Physician Requests: Admit Anuja Wilson MD May 18, 2017 23:37
[2017-05-18 23:40] VITALS: BP 216/139; PULSE 78; RESP 16; TEMP 100.4; O2SAT 66
[2017-05-18 23:45] VITALS: O2SAT 0
[2017-05-18 23:45] LABS: BASOPHIL # 0.2 TH/MM3 (0-0.2); BASOPHIL % 1.2 % (0.0-2.0); EOSINOPHIL # 0.3 TH/MM3 (0-0.4); EOSINOPHIL % 2.2 % (0.0-4.0); HEMATOCRIT 42.1 % (39.0-51.0); HEMOGLOBIN 13.7 GM/DL (13.0-17.0); LYMPH % 25.6 % (9.0-44.0); LYMPHOCYTE # 4.1 TH/MM3 (1.0-4.8); MEAN CELL VOLUME 85.5 FL (80.0-100.0); MEAN CORPUSCULAR HEMOGLOBIN 27.8 PG (27.0-34.0); MEAN CORPUSCULAR HGB CONC 32.5 % (32.0-36.0); MEAN PLATELET VOLUME 10.5 FL (7.0-11.0); MONO % 2.9 % (0.0-8.0); MONOCYTE # 0.5 TH/MM3 (0-0.9); NEUT % 68.1 % (16.0-70.0); PLATELET COUNT 206 TH/MM3 (150-450); RED BLOOD COUNT 4.92 MIL/MM3 (4.50-5.90); RED CELL DISTRIBUTION WIDTH 15.9 % (11.6-17.2); WHITE BLOOD COUNT 16.1 TH/MM3 (4.0-11.0)
[2017-05-18] MEDS ORDERED: PROPOFOL 1000 MG/100 ML INJ 100 ML IV PRN (23:45)
[2017-05-18] MEDS ORDERED: SODIUM CHLORIDE 0.9% FLUSH 10 ML FLUSH IV FLUSH PRN (23:45)
[2017-05-18] MEDS ORDERED: DILTIAZEM HCL 25 MG/5 ML VIAL IV PUSH ONE (23:45)
--- NOTE | 2017-05-18 23:51 | RADRPT ---
EXAM DATE/TIME: 05/18/2017 23:34 [place] COMPARISON: CHEST SINGLE AP, March 23, 2017, 20:04. INDICATIONS : Short of breath. MEDICAL HISTORY : None. SURGICAL HISTORY : None. ENCOUNTER: Initial ACUITY: 1 day PAIN SCORE: 0/10 LOCATION: Bilateral chest FINDINGS: ET tube is 4.5 cm from the praveen. There is an NG tube seen with tip seen in the lower chest likely i n the distal esophagus. The cardiac silhouette is enlarged. There is hazy density seen throughout bot h lungs. CONCLUSION: 1. Cardiomegaly 2. Hazy density seen throughout the lungs related to a combination of bilateral effusions and areas o f consolidation and atelectasis. 3. ET tube in good position. 4. Suspected NG tube in the distal esophagus. Waqar Solano MD on May 18, 2017 at 23:45 Board Certified Radiologist. This report was verified electronically.
[2017-05-18 23:54] LABS: AMORPHOUS SEDIMENT, URINE RARE; BACTERIA, URINE MANY /hpf; BILIRUBIN, URINE NEG (NEG); BLOOD, URINE SMALL (NEG); GLUCOSE,URINE NEG (NEG); KETONE, URINE NEG (NEG); MUCUS URINE FEW /lpf (OCC); NITRITE,URINE POS (NEG); PH, URINE 7.5 (5.0-8.5); URINE COLOR YELLOW (YELLW/STRAW); URINE LEUKOCYTE ESTERASE MOD (NEG)
[2017-05-19] VITALS (21 sets, daily range): BP systolic 141–212; BP diastolic 63–143; PULSE 85–154; RESP 16; TEMP 97.3–100.4; O2SAT 69–99
[2017-05-19 00:01] LABS: INTERNATIONAL NORMALIZED RATIO 1.1 RATIO; PROTHROMBIN TIME - PATIENT 10.9 SEC (9.8-11.6)
[2017-05-19] MEDS ORDERED: ASPIRIN 300 MG SUPP RECTAL ONE (00:15)
[2017-05-19] MEDS ORDERED: HEPARIN SODIUM - IV 10,000 UNITS/10 ML VIAL IV PUSH STA (00:15)
[2017-05-19 00:23] LABS: ALBUMIN 3.4 GM/DL (3.4-5.0); ALKALINE PHOSPHATASE 139 U/L (45-117); AST (GOT) 95 U/L (15-37); BICARBONATE 28.3 MEQ/L (21.0-32.0); BLOOD UREA NITROGEN 18 MG/DL (7-18); CALCIUM 8.1 MG/DL (8.5-10.1); CHLORIDE 101 MEQ/L (98-107); CREATININE 1.71 MG/DL (0.60-1.30); GLOMERULAR FILTRATION RATE 42 ML/MIN (>89); GLUCOSE,RANDOM 283 MG/DL (74-106); MAGNESIUM 2.5 MG/DL (1.5-2.5); SODIUM (NA) 139 MEQ/L (136-145); TOTAL BILIRUBIN ADULT 0.9 MG/DL (0.2-1.0); TOTAL PROTEIN 8.5 GM/DL (6.4-8.2); TROPONIN I 0.05 NG/ML (0.02-0.05)
[2017-05-19 00:26] LABS: BANDS 2 % (0-6); BASOPHILS 1 % (0-2); LYMPHOCYTES 14 % (9-44); METAMYELOCYTES 1 % (0-1); MONOCYTES 3 % (0-8); NEUTROPHIL # MANUAL DIFF 12.9 TH/MM3 (1.8-7.7); POLYS (SEG NEUTROPHILS) 77 % (16-70)
[2017-05-19 00:28] LABS: SMUDGE CELLS PRESENT PRESENT
[2017-05-19] MEDS: NITROGLYCERIN-D5W 50 MG/250 ML 250 ML IV PRN ×3 (00:36→20:44)
[2017-05-19] MEDS ORDERED: MISC INFORMATION OTHER ONE (00:45)
[2017-05-19] MEDS ORDERED: DEXTROSE 50% IN WATER 50 ML VIAL(D50) IV PUSH PRN (00:45)
[2017-05-19] MEDS ORDERED: INSULIN REGULAR (IV INFUSION) 100 UNITS in SODIUM CHLORIDE 0.9% INJ 99 ML IV PRN (00:45)
[2017-05-19] MEDS ORDERED: fentaNYL DRIP 250 ML IV PRN (00:45)
[2017-05-19 00:50] LABS: ALT (GPT) 64 U/L (12-78)
[2017-05-19] MEDS ORDERED: LACTULOSE SYRUP 20 GM/30 ML CUP PO PRN (01:30)
[2017-05-19] MEDS ORDERED: ONDANSETRON HCL 4 MG/2 ML VIAL IV PUSH PRN (01:30)
[2017-05-19] MEDS ORDERED: CISATRACURIUM INJ 100 MG in SODIUM CHLOR 0.9% 250 ML INJ 250 ML IV PRN (01:30)
[2017-05-19] MEDS ORDERED: SODIUM CHLORIDE 0.9% FLUSH 10 ML FLUSH IV FLUSH PRN (01:30)
[2017-05-19] MEDS ORDERED: BISACODYL 10 MG SUPP RECTAL PRN (01:30)
[2017-05-19] MEDS ORDERED: CHLORHEXIDINE GLUCONATE 2 % 1 PACK (2 CLOTHS) TOP PRN (01:30)
[2017-05-19] MEDS ORDERED: MISCELLANEOUS NURSING INFORMATION XX SCH (01:30)
[2017-05-19] MEDS ORDERED: RESP: ALBUTEROL 2.5 MG/3 ML NEB (PRN) INH (01:30)
[2017-05-19] MEDS ORDERED: ACETAMINOPHEN 325 MG TAB PO PRN ×2 (01:30→02:30)
[2017-05-19] MEDS ORDERED: MAGNESIUM HYDROXIDE SUSP 30 ML CUP PO PRN (01:30)
[2017-05-19] MEDS ORDERED: SENNOSIDES 8.6 MG TAB PO PRN (01:30)
[2017-05-19] MEDS ORDERED: VECURONIUM BROMIDE 10 MG VIAL IV PUSH ONE (01:30)
[2017-05-19] MEDS ORDERED: VERAPAMIL HCL 5 MG/2 ML VIAL ONE (01:39)
[2017-05-19] MEDS ORDERED: TICAGRELOR 90 MG TAB PO ONE ×2 (02:10→02:30)
[2017-05-19] MEDS ORDERED: ASPIRIN 81 MG CHEW TAB ONE (02:10)
[2017-05-19] MEDS ORDERED: CISATRACURIUM BESYLATE 20 MG/10 ML VIAL IV PUSH ONE (02:15)
[2017-05-19] MEDS ORDERED: MISC INFORMATION XX ONE (02:30)
--- NOTE | 2017-05-19 02:34 | CATHPROC ---
[facility] HIS Report Study Information Study Number Admission Scheduled Start Study Start [id number] May 19 2017 12:43AM 05/19/2017 May 19 2017 12:56AM [place] Service Cardiac Catheterization Admit Source Facility Department Emergency department [facility] [place] [facility] Physician and Clinical Staff Initial Hilario Gonsales Webfocus Developer Angela Becker,ZAINAB Webfocus Developer Inga Dickinson RN Recorder Julissa Coughlin,RT(R) Scrub Mina Rodriguez RCIS(BS) Procedures Performed Procedure Location (Site) Vessel Name Coronary Angiograms LCA Left Coronary Coronary Angiograms RCA Right Coronary Drug Eluting Inflatio OM1 Mid CIRC L Heart Cath PTCA OM1 Mid CIRC Wire insertion Radial (right) Radial Art. Equipment Time Senior Talent Acquisition Specialist Description Size Mfg Part Number Used/Scraped COPILOT VALVE, BLEEDBACK [id number] 01:55 [employer] Used CONTROL *[id number] TRANSDUCER, TRUWAVE [id number] 01:03 [employer]ELDS US * Used W/STOCKCOCK *[id number] 01:03 [employer] PACK, CCL CUSTOM * Used *[id number] 01:03 [employer] SUPPORT, ARTERIAL ADULT [id number] *[id number] Used [id number] 01:55 [employer] BALLOON, 2.5 X 12MM EUPHORA 12MM Used *[id number] 01:45 [employer] JL 3.5 DXTERITY CATHETER FR 5 Used *[id number] 01:49 [employer] JR 4.0 DXTERITY CATHETER FR 5 [id number] Used [id number] 02:01 [employer] STENT, 3.0 15MM CATALINO 3.0 15MM Used *[id number] 01:55 [employer]/AVE EBU 3.5 Z2 GUIDE CATHETER FR 6 Used *[id number] 02:02 [employer] MEDICAL 30 CHE INDEFLATOR Used *[id number] BAND, RADIAL COMPRESSION TR [id number] 02:09 [employer] MEDICAL 29CM Used LARGE 29 *[id number] 01:03 [employer] MEDICAL WIRE, 3MMJ .035 180CM 180CM Used *[id number] 01:03 NAMIC MANIFOLD, 4 PORT * Used *[id number] 02:08 [employer] OMNIPAQUE, 350 MG, 150ML 150ML [id number] Used 01:03 [employer] OMNIPAQUE, 350 MG, 150ML 150ML [id number] Used [id number] 01:03 [facility] BLANKET,WARM AIR CCL * Used *[id number] SHEATH, FR6 TRANSRADIAL RM*[id number] 01:03 [employer] FR 6 Used SLENDER 10CM *[id number] WIRE, RUNTHROUGH NS FLOPPY [id number] 01:55 [employer] 180CM Used .014 180CM *[id number] Equipment Model, Serial, Lot Number and Expiration Data Description Model Number Serial Number Lot Number Expiration Date JR 4.0 DXTERITY CATHETER [id number] 01-29-2020 STENT, 3.0 15MM CATALINO [id number] 03-13-2019 History: Current Medications Medication Dosage/Unit Route Frequency Last Date/Time Taken ASA CARDIZEM History: Allergies Allergy Reaction erythromycin base Hives clindamycin Hives red dye History: Risk Factors Family History of Hypertension Dyslipidemia Previous TX Previous Heart Failure Premature CAD Yes Yes No No Yes Prior Valve Prior PCI Prior CABG Surgery No No No Cerebrovascular Peripheral Artery Chronic Lung On Dialysis Diabetes Disease Disease Disease No No No Yes No History: Stress Tests Stress or Imaging Studies Performed No Labs Hgb (g/dl) Hct (%) WBC (l/cumm) Platelets (thousands) 11.60-17.00 35.00-51.00 4.00-11.00 150.00-450.00 13.7 42.1 16.1 206 Glucose (mg/dl) BUN (mg/dl) Creatinine (mg/dl) BUN:Creatinine (1:x) 74.00-106.00 7.00-18.00 0.50-1.30 10.00-20.00 283 18 1.7 10.6 Na (meq/l) K (meq/l) 136.00-145.00 3.50-5.10 139 4.3 INR (PTT:PT) 0.90-1.10 1.1 Troponin I (ng/ml) CPK (u/l) CPK-MB (ng/ML) 0.02-0.05 26.00-308.00 0.50-3.60 0.05 144 Not Drawn Medication Medication Total Dose (Bolus/Oral) Medication Total Dosage/Unit 1% XYLOCAINE 20 mL BRILINTA 180 mg HEPARIN 3000 units PROPOFOL 50 mcg RADIAL COCKTAIL 5 mL (Bolus) Medications (Bolus/Oral) Medication Time Given Dosage/Unit Administered By Reason PROPOFOL 05/19/2017 1:36:28 AM 50 mcg Hilario Moss Patient arrived on 50 mcg PROPOFOL given by Hilario Moss in Right Antecubital via Peripheral IV. 1% XYLOCAINE 05/19/2017 1:44:18 AM 20 mL Hilario Moss 20 mL 1% XYLOCAINE given in lab by Hilario Moss in Right Radial via Subcutaneous. Ntg 200mcg Verapamil 2.5mg Heparin RADIAL COCKTAIL 05/19/2017 1:45:03 AM 5 mL (Bolus) Hilario Moss 2500U 5 mL (Bolus) RADIAL COCKTAIL given in lab by Hilario Moss in Right Radial via Radial. Using [Kathi ution Name]. Reason: Ntg 200mcg Verapamil 2.5mg Heparin 2500U. HEPARIN 05/19/2017 1:58:03 AM 3000 units Angela Becker 3000 units HEPARIN given in lab by Angela Becker, ZAINAB in Left Antecubital via Peripheral IV. Ordered by Hilario Moss. BRILINTA 05/19/2017 2:10:18 AM 180 mg Angela Becker 180 mg BRILINTA given in lab by Angela Becker, ZAINAB via Oral. Ordered by Hilario Moss. Medication (Drip) Medication Time Given Dosage/Unit Concentration/Unit Diluent (ml) Solution NITROGLYCERIN DRIP 05/19/2017 1:35:42 AM 5 mcg/min 50 mg 250 D5W Patient arrived on 5 mcg/min NITROGLYCERIN DRIP in Left Antecubital via Peripheral IV. Pump/Drip Flow = 1.5 ml/hr using D5W with a concentration of 50 mg in 250 ml. NITROGLYCERN DRIP 05/19/2017 1:55:43 AM 5 mcg STOPPED 5 mcg NITROGLYCERN DRIP STOPPED given in lab by Inga Dickinson, ZAINAB in Left Antecubital via Peripheral IV. Ordered by Hilario Moss. Initial Case Assessment Cardiovascular HR Rhythm NIBP 111 tachy 105/83 Neurological State Unresponsive Respiration - General Respiration Rate SpO2 (%) (B/min) 15 83 Comment: rate 16/insp press 30/ i time 1.4 Respiration - Ventilator Type Ventilator Type Intubation Type Caballero ET(oral) Respiration - Ventilator Settings FIO2 (%) PEEP (cm/H2O) 100 12 Final Case Assessment Cardiovascular HR Rhythm NIBP 87 tachy 112/76 Neurological State Unresponsive Respiration - General Respiration Rate SpO2 (%) (B/min) 15 89 Comment: rate 16/insp press 30/ i time 1.4 Respiration - Ventilator Type Ventilator Type Intubation Type Caballero ET(oral) Respiration - Ventilator Settings FIO2 (%) PEEP (cm/H2O) 100 12 Chronological Log Time Study Chronological Log 0:50:00 Emergency Room notified that [place] [facility] is ready. 1:21:50 Patient arrived via Bed. 1:25:30 MD arrived. Vitals capture started with the following parameters, Patient=Adult, Interval=5 min, Initial Pr hlxpno=274 mmHg, 1:28:21 Deflation Rate=5 mmHg, Cuff placed on Right Arm 1:29:49 QWMA=797/44 mmhg 1:32:52 Patient Name, D.O.B, / Armband Verified By R.N. 1:32:58 Allens test performed on the left radial and ulnar artery. 1:33:22 Patient Warmer Placed on the Table. 1:33:23 Disposable Defibrillator Pads Placed On Patient. 1:33:24 Sandra Prominences Protected 1:34:05 NQON=150/57 mmhg 1:35:25 A # 20 IV was noted in the Antecubital (right). Grade = 0 1:35:26 A # 20 IV was noted in the Antecubital (left). Grade = 0 Patient arrived on 5 mcg/min NITROGLYCERIN DRIP in Left Antecubital via Peripheral IV. Pump/Drip Flow = 1.5 ml/hr 1:35:42 using D5W with a concentration of 50 mg in 250 ml. 1:36:28 Patient arrived on 50 mcg PROPOFOL given by Hilario Moss in Right Antecubital via Perip heral IV. 1:38:05 Reference ECG taken Assessment: Initial Case, EZ=830 BPM, Rhythm=tachy, EBZL=529/83 mmhg Neurological: State=Unresponsive 1:38:49 Respiration: Resp=15 B/min, SpO2=83 %, Ventilator type=Caballero, Type=ET(Oral), TTY6=133 %, PEEP=12 cm/H2O, Comment=rate 16/insp press 30/ i time 1.4 1:38:51 HR=83 bpm, LIYO=068/83 mmhg, SpO2=84.0 %, Resp=15 B/min Time Out. Correct patient, correct procedure, correct physician, power injector loaded, or not l oaded with contrast with 1:43:40 surgical team present. Time Out Concurred by MD and individual staff in procedure. 1:43:58 Case Start 1:44:03 HR=90 bpm, IDTQ=165/49 mmhg, SpO2=84.0 %, Resp=16 B/min 1:44:18 20 mL 1% XYLOCAINE given in lab by Hilario Moss in Right Radial via Subcutaneous. 1:44:27 Pressure channel 1 zeroed. 1:44:43 Access site was right Radial Artery. A SHEATH, FR6 TRANSRADIAL SLENDER 10CM FR 6 was advanced into the Radial (right) using the Mauro reyez 1:44:53 technique. 5 mL (Bolus) RADIAL COCKTAIL given in lab by Hilario Moss in Right Radial via Radial. Using [Solution Name]. 1:45:03 Reason: Ntg 200mcg Verapamil 2.5mg Heparin 2500U. A JL 3.5 DXTERITY CATHETER FR 5 was advanced over a wire. OMNIPAQUE, 350 MG, 150ML 150ML was use d for 1:45:48 injections. 1:48:25 The LCA was injected and visualized at various angles. OMNIPAQUE, 350 MG, 150ML 150ML used. 1:49:53 HR=93 bpm, NIBP=93/39 mmhg, SpO2=85.0 %, Resp=15 B/min After removing the current catheter a JR 4.0 DXTERITY CATHETER FR 5 was advanced over a WIRE, 3M MJ .035 180CM 1:50:28 180CM. Recorded Pressure: LV, HR=92, Condition=Condition 1 1:51:19 (Left Ventricle) LV 99/11/21 1:53:44 The RCA was injected and visualized at various angles. OMNIPAQUE, 350 MG, 150ML 150ML used. 1:53:57 HR=75 bpm, NIBP=88/53 mmhg, SpO2=85.0 %, Resp=16 B/min 1:54:16 Catheter was removed 5 mcg NITROGLYCERN DRIP STOPPED given in lab by Inga Dickinson, RN in Left Antecubital via Perip heral IV. Ordered 1:55:43 by Hilario Moss. A EBU 3.5 Z2 GUIDE CATHETER FR 6 was advanced over a wire. OMNIPAQUE, 350 MG, 150ML 150ML was us ed for 1:57:07 injections. 3000 units HEPARIN given in lab by Angela Becker RN in Left Antecubital via Peripheral IV. Or dered by Isa, 1:58:03 Hilario. 1:58:54 HR=96 bpm, NIBP=98/62 mmhg, SpO2=86.0 %, Resp=16 B/min 1:59:42 A WIRE, RUNTHROUGH NS FLOPPY .014 180CM 180CM was inserted via Radial (right). 2:00:42 Interventional wire has crossed the lesion A BALLOON, 2.5 X 12MM EUPHORA 12MM was inserted over WIRE, RUNTHROUGH NS FLOPPY .014 180CM 180C M via 2:01:26 the Radial (right). A BALLOON, 2.5 X 12MM EUPHORA 12MM over a WIRE, RUNTHROUGH NS FLOPPY .014 180CM 180CM in the OM 1 Mid 2:01:29 was inflated using a 30 CHE INDEFLATOR at 8 che for 10 sec. 2::26 Balloon Removed. A STENT, 3.0 15MM CATALINO 3.0 15MM was advanced through a EBU 3.5 Z2 GUIDE CATHETER FR 6 over a WI RE, 2:03:31 RUNTHROUGH NS FLOPPY .014 180CM 180CM. A STENT, 3.0 15MM CATALINO 3.0 15MM was deployed using a 30 CHE INDEFLATOR at 16 atmospheres for 20 seconds in 2:03:55 the OM1 Mid. 2:04:40 HR=79 bpm, FVDU=673/64 mmhg, SpO2=87 %, Resp=15 B/min 2:06:15 Delivery device removed 2:06:20 Catheter was removed 2:06:21 Wire removed 2:07:29 Case End 2:09:06 HR=95 bpm, PQCC=786/50 mmhg, SpO2=88.0 %, Resp=15 B/min 2:10:18 180 mg BRILINTA given in lab by Angela Becker, ZAINAB via Oral. Ordered by Hilario Moss. Radial Compression Device Used. 15 mLs of air placed in BAND, RADIAL COMPRESSION TR LARGE 29 29 CM. Affected 2:12:48 hand 89 % O2 saturation. 2:14:32 HR=94 bpm, JMNM=942/74 mmhg, SpO2=89 %, Resp=21 B/min 2:18:40 No case complications noted. 2:18:42 Cine recording checked. 2:18:44 Bedside Report will be given. 2:18:45 Implantable Device card placed in patient's chart. 2:18:58 HR=87 bpm, YHOF=354/76 mmhg, SpO2=89.0 %, Resp=16 B/min 2:20:39 A Left Heart Cath was performed. Assessment: Final Case, HR=87 BPM, Rhythm=tachy, EDOF=322/76 mmhg Neurological: State=Unresponsive 2:20:53 Respiration: Resp=15 B/min, SpO2=89 %, Ventilator type=Caballero, Type=ET(Oral), DUD4=932 %, PEEP=12 cm/H2O, Comment=rate 16/insp press 30/ i time 1.4 2:21:31 Vitals capture stopped. 2:21:35 Patient moved to bed End Study - Contrast Media Used In Study Contrast Total Opened (mL) Total Used (mL) Total Wasted (mL) Omnipaque 120 120 0 End Study - Maximum Contrast Load Max Contrast Load (mL) 648.4 End Study - Radiation Exposure Fluoro Time (minutes) 11.7 End Study - Patient Disposition Complications Transferred To Interventional Outcome No Critical Care Bed successful
[2017-05-19 02:43] LABS: CHOLESTEROL/ HDL RATIO 5.97 RATIO; HDL CHOLESTEROL 29.3 MG/DL (40.0-60.0)
[2017-05-19 02:44] LABS: PHOSPHORUS 7.9 MG/DL (2.5-4.9)
[2017-05-19] MEDS ORDERED: PILL SPLITTER OTHER PRN (02:45)
[2017-05-19] MEDS: RESP: ALBUTEROL 2.5 MG/IPRATROPIUM 0.5 MG NEB (SCH) INH ×4 (04:04→20:26)
[2017-05-19] MEDS ORDERED: SODIUM BICARBONATE 8.4% INJ 50 MEQ/50 ML SYR IV ONE (05:00)
[2017-05-19] MEDS ORDERED: ATROPINE SULFATE 1 MG/10 ML SYRINGE IV ONE (05:00)
[2017-05-19] MEDS ORDERED: DEXTROSE 50% IN WATER 50 ML SYRINGE IV ONE (05:00)
[2017-05-19] MEDS ORDERED: AMIODARONE HCL 150 MG/3 ML VIAL IV ONE (05:00)
[2017-05-19] MEDS ORDERED: EPINEPHrine HCL (1:10,000) 1 MG/10 ML SYRINGE IV ONE (05:00)
--- NOTE | 2017-05-19 05:10 | RADRPT ---
EXAM DATE/TIME: 05/19/2017 04:27 [place] COMPARISON: CHEST SINGLE AP, May 18, 2017, 23:34. INDICATIONS : Shortness of breath. MEDICAL HISTORY : None. SURGICAL HISTORY : None. ENCOUNTER: Initial ACUITY: 1 day PAIN SCORE: 0/10 LOCATION: Bilateral chest FINDINGS: The ET tube is in good position. There is enlargement of the cardiac silhouette. There is increased d ensity at the left base and the right upper lung. CONCLUSION: 1. Cardiomegaly 2. Consolidation or atelectasis of the left lower lobe and right upper lobe. Waqar Solano MD on May 19, 2017 at 5:06 Board Certified Radiologist. This report was verified electronically.
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
[2017-05-19 06:19] LABS: LACTIC ACID SEPSIS PROTOCOL 2.2 mmol/L (0.4-2.0)
[2017-05-19] MEDS ORDERED: IOHEXOL 350 MG/ML 100 ML BTL (for Cath Lab) OTHER ONE (07:14)
[2017-05-19] MEDS ORDERED: IOHEXOL 350 MG/ML 50 ML BTL (for Cath Lab) OTHER ONE (07:14)
[2017-05-19] MEDS: LABETALOL HCL 100 MG/20 ML VIAL IV PUSH PRN ×3 (07:36→20:42)
[2017-05-19] MEDS: FAMOTIDINE 20 MG/2 ML VIAL IV PUSH SCH ×2 (08:29→20:09)
[2017-05-19] MEDS: PROPOFOL 1000 MG/100 ML INJ 100 ML IV PRN ×11 (08:29→23:58)
[2017-05-19] MEDS: FUROSEMIDE 40 MG/4 ML VIAL IV PUSH SCH (08:29)
[2017-05-19] MEDS: ASPIRIN 81 MG CHEW TAB PO SCH (08:30)
[2017-05-19] MEDS: FAMOTIDINE 20 MG TAB PO SCH ×2 (08:30→20:08)
[2017-05-19] MEDS: CHLORHEXIDINE 0.12% (ORAL KIT) 15 ML CUP MT SCH ×2 (08:30→20:00)
[2017-05-19] MEDS: DOCUSATE SODIUM 50 MG/SENNA 8.6 MG TAB PO SCH ×2 (08:30→20:08)
[2017-05-19] MEDS: TICAGRELOR 90 MG TAB PO SCH ×2 (08:30→20:09)
[2017-05-19] MEDS: SODIUM CHLORIDE 0.9% FLUSH 10 ML FLUSH IV FLUSH SCH ×2 (08:31→20:10)
[2017-05-19] MEDS ORDERED: METOPROLOL TARTRATE 25 MG TAB PO SCH (09:00)
--- NOTE | 2017-05-19 09:01 | PD.CARD.PN ---
Subjective Subjective Remarks sedated, intubated Objective Medications Current Medications Medications (Trade) Dose Ordered Sig/Yi Route Start Time Stop Time Status Last Admin Diltiazem HCl 125 mg/Sodium Chloride 125 ml @ 5 mls/hr TITRATE PRN IV 05/18/17 23:45 Nitroglycerin/ Dextrose 250 ml @ 3 mls/hr TITRATE PRN IV 05/19/17 00:15 05/19/17 05:42 Fentanyl Citrate 250 ml @ 5 mls/hr TITRATE PRN IV 05/19/17 00:45 Insulin Human Regular 100 units/ Sodium Chloride 100 ml @ 0.5 mls/hr TITRATE PRN IV 05/19/17 00:45 (D50w (Vial) Inj) 50 ml UNSCH PRN IV PUSH 05/19/17 00:45 (Peridex 0.12% Liq) 15 ml BID@08,20 MT 05/19/17 08:00 05/19/17 08:30 Propofol 100 ml @ 6.6 mls/hr TITRATE PRN IV 05/19/17 01:30 05/19/17 08:29 Cisatracurium Besylate 100 mg/ Sodium Chloride 260 ml @ 34.32 mls/ hr TITRATE PRN IV 05/19/17 01:30 (NS Flush) 2 ml UNSCH PRN IV FLUSH 05/19/17 01:30 (NS Flush) 2 ml BID IV FLUSH 05/19/17 09:00 05/19/17 08:31 (Tylenol) 650 mg Q6H PRN PO 05/19/17 01:30 (fentaNYL INJ) 50 mcg Q1H PRN IV PUSH 05/19/17 01:30 (Pepcid Inj) 20 mg Q12HR IV PUSH 05/19/17 09:00 05/19/17 08:29 (Pepcid) 20 mg Q12HR PO 05/19/17 09:00 (Versed Inj) 2 mg Q15M PRN IV PUSH 05/19/17 01:30 (Zofran Inj) 4 mg Q6H PRN IV PUSH 05/19/17 01:30 (Duoneb Neb) 1 ampule Q6HR NEB INH 05/19/17 04:00 05/19/17 08:01 (Albuterol Neb) 2.5 mg Q2HR NEB PRN INH 05/19/17 01:30 Miscellaneous Information 1 Q361D XX 05/19/17 01:30 (Chlorhexidine 2% Cloth) 3 pack Taper DAILY@04 TOP 05/19/17 04:00 05/15/18 03:59 (Chlorhexidine 2% Cloth) 3 pack UNSCH PRN TOP 05/19/17 01:30 (Daniella-Colace) 1 tab BID PO 05/19/17 09:00 05/19/17 08:30 (Milk Of Magnesia Liq) 30 ml Q12H PRN PO 05/19/17 01:30 (Senokot) 17.2 mg Q12H PRN PO 05/19/17 01:30 (Dulcolax Supp) 10 mg DAILY PRN RECTAL 05/19/17 01:30 (Lactulose Liq) 30 ml DAILY PRN PO 05/19/17 01:30 (Tylenol) 325 mg Q4H PRN PO 05/19/17 02:30 (Aspirin Chew) 81 mg DAILY PO 05/19/17 09:00 05/19/17 08:30 (Brilinta) 90 mg BID PO 05/19/17 09:00 05/19/17 08:30 (Lopressor) 12.5 mg BID PO 05/19/17 09:00 05/19/17 08:30 (Lipitor) 10 mg HS PO 05/19/17 21:00 (Lasix Inj) 40 mg DAILY IV PUSH 05/19/17 09:00 05/19/17 08:29 (Pill Splitter) 1 ea UNSCH PRN OTHER 05/19/17 02:45 (Trandate Inj) 10 mg Q4H PRN IV PUSH 05/19/17 05:30 05/19/17 07:36 Vital Signs / I&O Vital Signs Date Time Temp Pulse Resp B/P (MAP) Pulse Ox O2 Delivery O2 Flow Rate FiO2 05/19/17 08:02 99 90 05/19/17 05:42 96 205/146 05/19/17 03:00 91 05/19/17 03:00 99.8 91 16 143/108 (120) 89 05/19/17 03:00 100 05/19/17 02:40 93 100 05/19/17 02:40 90 05/19/17 02:38 91 100 05/19/17 02:19 05/19/17 01:25 83 100 05/19/17 01:25 83 100 05/19/17 01:15 84 100 05/19/17 00:40 84 100 05/19/17 00:36 107 147/84 05/19/17 00:03 100.4 85 16 183/93 (123) 69 Auto-Vent 100 05/18/17 23:45 0 100 05/18/17 23:40 100.4 78 16 216/139 (164) 66 Ventilator 100 05/18/17 23:28 73 Auto-Vent 100 05/18/17 23:28 20 73 Auto-Vent 100 05/18/17 23:04 0 100 05/18/17 22:42 99.3 148 20 186/75 (112) 74 Ventilator 15.00 100 05/18/17 22:35 0 68 Bag Valve 25.00 Physical Exam GENERAL: Sedated, intubated SKIN: Warm and dry. HEAD: Normocephalic. EYES: No scleral icterus. No injection or drainage. NECK: Supple, trachea midline. No JVD or lymphadenopathy. CARDIOVASCULAR: irr Irr without murmurs, gallops, or rubs. RESPIRATORY: Vented GASTROINTESTINAL: Abdomen soft, non-tender, nondistended. EXTREMITIES: No cyanosis, or edema. Laboratory Laboratory Tests Test 05/18/17 23:15 05/18/17 23:20 05/19/17 00:20 05/19/17 00:58 Urine Color YELLOW Urine Turbidity HAZY Urine pH 7.5 Urine Specific Floyd 1.010 Urine Protein 30 mg/dL Urine Glucose (UA) NEG mg/dL Urine Ketones NEG mg/dL Urine Occult Blood SMALL Urine Nitrite POS Urine Bilirubin NEG Urine Urobilinogen LESS THAN 2.0 MG/DL Urine Leukocyte Esterase MOD Urine RBC 20 /hpf Urine WBC 30 /hpf Urine Amorphous Sediment RARE Urine Bacteria MANY /hpf Urine Mucus FEW /lpf Microscopic Urinalysis Comment CULTURE INDICATED Urine Opiates Screen NEG Urine Barbiturates Screen NEG Urine Amphetamines Screen NEG Urine Benzodiazepines Screen NEG Urine Cocaine Screen NEG Urine Cannabinoids Screen NEG White Blood Count 16.1 TH/MM3 Red Blood Count 4.92 MIL/MM3 Hemoglobin 13.7 GM/DL Hematocrit 42.1 % Mean Corpuscular Volume 85.5 FL Mean Corpuscular Hemoglobin 27.8 PG Mean Corpuscular Hemoglobin Concent 32.5 % Red Cell Distribution Width 15.9 % Platelet Count 206 TH/MM3 Mean Platelet Volume 10.5 FL Neutrophils (%) (Auto) 68.1 % Lymphocytes (%) (Auto) 25.6 % Monocytes (%) (Auto) 2.9 % Eosinophils (%) (Auto) 2.2 % Basophils (%) (Auto) 1.2 % Neutrophils # (Auto) 11.0 TH/MM3 Lymphocytes # (Auto) 4.1 TH/MM3 Monocytes # (Auto) 0.5 TH/MM3 Eosinophils # (Auto) 0.3 TH/MM3 Basophils # (Auto) 0.2 TH/MM3 CBC Comment AUTO DIFF Differential Total Cells Counted 100 Neutrophils % (Manual) 77 % Band Neutrophils % 2 % Lymphocytes % 14 % Monocytes % 3 % Eosinophils % 2 % Basophils % 1 % Neutrophils # (Manual) 12.9 TH/MM3 Metamyelocytes 1 % Differential Comment FINAL DIFF MANUAL Smudge Cells PRESENT Platelet Estimate NORMAL Platelet Morphology Comment NORMAL Prothrombin Time 10.9 SEC Prothromb Time International Ratio 1.1 RATIO Activated Partial Thromboplast Time 26.6 SEC Blood Urea Nitrogen 18 MG/DL Creatinine 1.71 MG/DL Random Glucose 283 MG/DL Total Protein 8.5 GM/DL Albumin 3.4 GM/DL Calcium Level 8.1 MG/DL Phosphorus Level 7.9 MG/DL Magnesium Level 2.5 MG/DL Alkaline Phosphatase 139 U/L Aspartate Amino Transf (AST/SGOT) 95 U/L Alanine Aminotransferase (ALT/SGPT) 64 U/L Total Bilirubin 0.9 MG/DL Sodium Level 139 MEQ/L Potassium Level 4.3 MEQ/L Chloride Level 101 MEQ/L Carbon Dioxide Level 28.3 MEQ/L Anion Gap 10 MEQ/L Estimat Glomerular Filtration Rate 42 ML/MIN Total Creatine Kinase 144 U/L Creatine Kinase MB 2.5 NG/ML Troponin I 0.05 NG/ML B-Type Natriuretic Peptide 354 PG/ML Triglycerides Level 821 MG/DL Cholesterol Level 175 MG/DL LDL Cholesterol MG/DL HDL Cholesterol 29.3 MG/DL Cholesterol/HDL Ratio 5.97 RATIO Blood Gas Puncture Site RT RADIAL RT RADIAL Blood Gas Patient Temperature 98.6 98.7 Blood Gas HCO3 27 mmol/L 28 mmol/L Blood Gas Base Excess -0.5 mmol/L 0.5 mmol/L Blood Gas Oxygen Saturation 74 % 76 % Arterial Blood pH 7.17 7.19 Arterial Blood Partial Pressure CO2 78 mmHg 76 mmHg Arterial Blood Partial Pressure O2 48 mmHG 51 mmHg Arterial Blood Oxygen Content 14.2 Vol % 14.5 Vol % Arterial Blood Carboxyhemoglobin 0.9 % 1.1 % Arterial Blood Methemoglobin 0.7 % 1.1 % Blood Gas Hemoglobin 13.8 G/DL 13.6 G/DL Oxygen Delivery Device VENTILATOR VENTILATOR Blood Gas Ventilator Setting APRV Blood Gas Inspired Oxygen 100 % Test 05/19/17 04:16 05/19/17 05:40 Blood Gas Puncture Site LT RADIAL Blood Gas Patient Temperature 98.6 Blood Gas HCO3 28 mmol/L Blood Gas Base Excess 3.1 mmol/L Blood Gas Oxygen Saturation 94 % Arterial Blood pH 7.36 Arterial Blood Partial Pressure CO2 51 mmHg Arterial Blood Partial Pressure O2 81 mmHg Arterial Blood Oxygen Content 17.3 Vol % Arterial Blood Carboxyhemoglobin 1.2 % Arterial Blood Methemoglobin 1.4 % Blood Gas Hemoglobin 13.1 G/DL Oxygen Delivery Device VENTILATOR Blood Gas Ventilator Setting PC/AC 16/IP30/ Blood Gas Inspired Oxygen 100 % Lactic Acid Level 2.2 mmol/L Imaging Last 24 hours Impressions Chest X-Ray 05/19/17 0420 Signed Impressions: Service Date/Time: Friday, May 19, 2017 04:27 - CONCLUSION: 1. Cardiomegaly 2. Consolidation or atelectasis of the left lower lobe and right upper lobe. Waqar Solano MD Chest X-Ray 05/18/17 2310 Signed Impressions: Service Date/Time: Thursday, May 18, 2017 23:34 - CONCLUSION: 1. Cardiomegaly 2. Hazy density seen throughout the lungs related to a combination of bilateral effusions and areas of consolidation and atelectasis. 3. ET tube in good position. 4. Suspected NG tube in the distal esophagus. Waqar Solano MD Assessment and Plan Problem List: (1) STEMI (ST elevation myocardial infarction) ICD Codes: I21.3 - ST elevation (STEMI) myocardial infarction of unspecified site Status: Acute Plan: 51 y/o M s/p PCI/SUMI to OM in the setting of STEMI. Remains hemodynamically stable, sedated, intubated. Stable from CV standpoint. Recommendations: 1. DAPT with ASA and Brilinta 2. BB, Statin, Imdur, ACEi 3. 2Decho today 4. Early extubation (2) Atrial fibrillation ICD Codes: I48.91 - Unspecified atrial fibrillation Status: Chronic (3) JAIMEE (acute kidney injury) ICD Codes: N17.9 - Acute kidney failure, unspecified Status: Acute (4) Morbid obesity with BMI of 50.0-59.9, adult ICD Codes: E66.01 - Morbid (severe) obesity due to excess calories; Z68.43 - Body mass index (BMI) 50-59.9 , adult Status: Chronic (5) Respiratory failure ICD Codes: J96.90 - Respiratory failure, unspecified, unspecified whether with hypoxia or hypercapnia Status: Acute Problem Qualifiers (1) STEMI (ST elevation myocardial infarction): Qualified Codes: I21.3 - ST elevation (STEMI) myocardial infarction of unspecified site (2) Respiratory failure: Qualified Codes: J96.00 - Acute respiratory failure, unspecified whether with hypoxia or hypercapnia Hilario Moss MD May 19, 2017 09:00
--- NOTE | 2017-05-19 09:11 | PD.PROCEDR ---
Central Line Procedure REASON FOR PROCEDURE Central venous access PROCEDURE PERFORMED Central line placement: RIJ central line CONSENT Informed consent for procedure was obtained and time out performed. The risks and benefits of the procedure were discussed to include but limited to bleeding , clot formation, infection, and even . ANESTHESIA Local injection of 1% Lidocaine DESCRIPTION OF THE PROCEDURE The patient was placed in supine, mild Trendelenburg position. The area was exposed and cleansed with ChloraPrep, times two. Large sterile drape was used to cover the patient, with the site exposed, under sterile conditions including cap, face mask, sterile gown, and sterile gloves. On single attempt, the introducer needle was inserted with negative pressure in syringe and venous flash was obtained. The guide wire was then advanced without any restriction and the needle was removed. The dilator was used without any complications. Using Seldinger technique the 20 CM 7F catheter was advanced over the guide wire to a depth of 18 centimeters. The guide wire was removed. All ports were aspirated with dark venous blood return and flushed easily with sterile saline. All ports were capped. Antibiotic disc was placed around central line at puncture site. The central line was secured to the skin with two interrupted 2.0 silk sutures. The area was bandaged with sterile see-through central line bandage. RADIOLOGICAL DATA Ultrasound guidance was used to locate RIJ. Doppler/color flow was used to confirm venous flow. COMPLICATIONS: No apparent complications ESTIMATED BLOOD LOSS: Less than 1 cc. Julia Zavaleta MD May 19, 2017 09:11
--- NOTE | 2017-05-19 11:13 | RADRPT ---
EXAM DATE/TIME: 05/19/2017 09:23 [place] COMPARISON: CHEST SINGLE AP, May 19, 2017, 4:27. INDICATIONS : Evaluate central line placement. MEDICAL HISTORY : Congestive heart failure. Hypertension. SURGICAL HISTORY : Cholecystectomy. ENCOUNTER: Subsequent ACUITY: 2 days PAIN SCORE: Non-responsive. LOCATION: Bilateral chest FINDINGS: Portable AP view of the chest demonstrates cardiac silhouette size within normal limits. ETT and naso gastric tube remain present. Nasogastric tube may be looped in the hypopharynx. Right IJ line is now present and distal tip is in the upper to mid SVC. No pneumothorax is identified. There is persistent opacity in the left mid and lower lung zone. Hazy airspace opacity is present diffusely throughout t he right lung. CONCLUSION: 1. Right IJ line distal tip is in the SVC. No pneumothorax is visualized. 2. Otherwise, stable exam. As mentioned above, the nasogastric tube may be looped in the hypopharynx. Waqar Soliman MD on May 19, 2017 at 11:06 Board Certified Radiologist. This report was verified electronically.
[2017-05-19] MEDS: CEFEPIME INJ 2,000 MG in SODIUM CHLORIDE 0.9% INJ 100 ML IV SCH (12:01)
[2017-05-19] MEDS: SODIUM CHLOR 0.9% 1000 ML INJ 1,000 ML IV SCH ×2 (12:02→22:19)
--- NOTE | 2017-05-19 14:21 | MA ---
cc: KRISTY BETHEA DATE 05/19/2017 PROCEDURE PERFORMED 1. Left heart catheterization. 2. Selective right and left coronary angiography. 3. Left ventricular hemodynamics. 4. Successful PCI to OM1. INDICATION ST-segment elevation FL, acute respiratory failure. ACCESS Right transradial. PROCEDURE DESCRIPTION The patient was brought emergently to the cardiac cardiac catheterization technologist, intubated. The right wrist was prepped and draped in a sterile fashion. Using 1% lidocaine for local anesthesia and a micropuncture kit a 6 English sheath was inserted into the right radial artery. An antispasmodic cocktail was given then selective right and left coronary angiography was performed with a JR4 and a JL4 diagnostic catheter. Angiography was taken in multiple views. The JR4 diagnostic catheter was introduced into the ventricle over a wire. This was followed by pressure recordings on pullback where I identified the culprit lesion of the STEMI at OM1 which was amenable to PCI. Additional heparin was given for IV anticoagulation. The left main was engaged with an EBU 3.5 guide. The vessel was wired with a Runthrough wire. The lesion was predilated with a 2.5 x 12 balloon followed by insertion and deployment of a 3.0 x 15 drug- eluting stent which was post dilated with a stent balloon to high atmospheres. Final angiographic views revealed good stent apposition and expansion with DWIGHT- III flow and nonobstructive coronary artery disease. The patient tolerated the procedure well without complications. Estimated blood loss less than 10 cc. Total contrast was 120 cc. The right radial access site was closed with a TR band. The patient was given aspirin and Brilinta after the procedure. RESULTS LEFT VENTRICLE The left ventricular pressure was 99/11 with an LVEDP of 21. There was no gradient upon pullback from the left ventricle to the aorta. ANGIOGRAPHY 1. The right coronary artery is a dominant vessel. It has a 10% lesion in the proximal segment and a 5% lesion in the distal exam. The right coronary artery is giving a PDA as well as a posterolateral branch, both of which are patent. 2. The left main is patent with DWIGHT-III flow, is giving the LAD and a left circumflex artery. 3. The LAD is a transapical vessel. It has minimal luminal irregularities throughout. Distally it appears to have very distal clot versus a chronic occlusion however vessel size very small. The LAD is given two diagonals which have minimal luminal irregularities and patent. 4. The left circumflex artery is giving off a main OM artery which has 99% thrombotic lesion with DWIGHT-I flow. The segment of the AV groove circumflex is diffusely disease and of small caliber. CONCLUSIONS 1. Successful PCI/SUMI to the OM1 in the setting of an inferior STEMI. 2. Elevated LVEDP. RECOMMENDATIONS The patient will go to the [facility] [place] post-[place] care. He will continue aspirin and Brilinta as well as aggressive medical management for secondary prevention of CAD with beta natalee, statin, long-acting nitrate. The patient has known chronic kidney disease and will hold FRIDA inhibitors for now. He will need strict inputs and outputs and diuresis. Flight Service Agent consult. MD JAIME Phillips/SAMSON /2:12 AM /8:27 AM [facility]
--- NOTE | 2017-05-19 14:21 | MB ---
cc: KRISTY BETHEA DATE OF 1965 DATE OF CONSULTATION May 19, [address]-segment elevation MS. HISTORY OF PRESENT ILLNESS A 51-year-old male brought into the emergency department via EMS with acute respiratory distress, intubated in the field. His past medical history significant for hypertension, hyperlipidemia, morbidly obese, chronic kidney disease, depression and atrial fibrillation. According to reports he was in his usual state of health until two days ago when he had been complaining of shortness of breath. Per , he had acute onset of shortness of breath. Upon EMS arrival, he was blue with increased work of breathing and low O2 sats. The patient was given albuterol, Solu-Medrol and brought into the emergency room. However, the patient's respiratory status deteriorated to the point that he would needed to be intubated in the field. Due to the patient's size, he was a difficult intubation. Upon arrival in the ED , the patient had stable vital signs. EKG revealed atrial fibrillation with inferior ST-segment elevation MS for which Cardiology has been consulted for emergent PCI. PAST MEDICAL HISTORY 1. Hypertension. 2. Hyperlipidemia. 3. Obesity. 4. Atrial fibrillation. 5. COPD. 6. Sleep apnea. PAST SURGICAL HISTORY 1. Cholecystectomy. 2. Tonsillectomy. SOCIAL HISTORY No alcohol. No tobacco use. Occasional marijuana. ALLERGIES CLINDAMYCIN. ERYTHROMYCIN. RED DYE. CARDIAC HOME MEDICATIONS 1. Lasix. 2. Metoprolol. 3. Aldactone. 4. Clonidine. 5. Enalapril. 6. Aspirin. PHYSICAL EXAMINATION VITAL SIGNS: Temperature 100.4, respiratory rate 16, heart rate 107, blood pressure 183/93, O2 sats 100% vented. GENERAL: He is sedated, intubated, in no acute distress. ABDOMEN: Obese. Unable to examine JVD. HEART: Tachycardia. Irregularly irregular rate. No murmurs, rubs or gallops. LUNGS: Vented. No wheezes, no rhonchi, no rales. ABDOMEN: Obese, soft, nontender, nondistended. EXTREMITIES: Pulses throughout. No edema or cyanosis. DATA CBC - Hemoglobin 13, hematocrit 42,, platelet count 206. INR 1.1. The urinalysis is significant for UTI. EKG Atrial fibrillation with ST-segment elevations on II, III and AVF. CHEST X-RAY Cardiomegaly with bilateral paresthesias. ASSESSMENT AND PLAN 51-year-old male who presented with a STEMI, aspiration and acute respiratory failure. The patient remains with an adequate blood pressure, unable to assess neurologically. It was a traumatic intubation and he had likely aspirated in the field. He does have a fever of 100.4. At this point I think it is reasonable taken him to the cardiac labor contract analyst for primary PCI in the setting of STEMI for ACC/AHA guidelines. The risks and benefits of emergent PCI have been discussed with family. They understand the risks and they want to proceed. RECOMMENDATIONS 1. Keep n.p.o. 2. For primary PCI now. 3. Further management to be determined. MD JAIME Phillips/SSB /2:25 AM /8:28 AM MTDAutumn
--- NOTE | 2017-05-19 16:23 | EKG ---
Date Performed: 05/19/2017 Time Performed: 06:12:52 PTAGE: 51 years EKG: Atrial fibrillation. Leftward axis IV conduction defect Inferior T wave changes may be due to myocardial ischemia Since previous tracing, no significant change noted Abnormal ECG PREVIOUS TRACING : 01/14/201703/27.20 DOCTOR: Sangita Guajardo Interpretating Date/Time 05/19/2017 16:22:40
[2017-05-19 18:03] LABS: HEMOGLOBIN A1C 5.7 % (4.3-6.0)
--- NOTE | 2017-05-19 18:50 | EKG ---
Date Performed: 05/18/2017 Time Performed: 23:49:07 PTAGE: 51 years EKG: ATRIAL FIBRILLATION WITH RAPID VENTRICULAR RESPONSE MODERATE INTRAVENTRICULAR CONDUCTION DE LAY MARKED ST ELEVATION, CONSIDER INFERIOR INJURY ACUTE AR When compare to PREVIOUS TRACING , patient has developed Evidence of inferior wall transmural injury cons istent with an ST Segment elevation infarct. Clinical corrolation will be fundamentally important. [facility] EVIOUS TRACIN03/24/2017 08.36 DOCTOR: Sangita Guajardo Interpretating Date/Time 05/19/2017 18:50:03
--- NOTE | 2017-05-19 18:54 | EKG ---
Date Performed: 05/19/2017 Time Performed: 00:03:07 PTAGE: 51 years EKG: ATRIAL FIBRILLATION INDETERMINATE AXIS INTRAVENTRICULAR CONDUCTION DELAY Continued evidence of inferior wall injury. ST segment elevation continues. Myocardial infarction. The rapid ventricula r response of the atrial fibrillation has Resolved. ABNORMAL ECG PREVIOUS TRACING : 05/18/2017 23.49 DOCTOR: Sangita Guajardo Interpretating Date/Time 05/19/2017 18:53:03
--- NOTE | 2017-05-19 19:49 | ECHRPT ---
Indication: HEART FAILURE, MORBIDLY OBESE CONCLUSIONS Technically very difficult study. Mild LV systolic dysfunction (EF 40-45%). Mild MR. BP: / HR: Rhythm: Technical Quality: FINDINGS ATRIAL SEPTUM No atrial level shunt is demonstrated by color flow Doppler interrogation. PERICARDIUM No pericardial effusion. Monica Elaine MD, FACC (Electronically Signed) Final Date:19 May 2017 19:48
[2017-05-19] MEDS ORDERED: METOPROLOL TARTRATE 5 MG/5 ML VIAL IV PUSH ONE (20:00)
[2017-05-19] MEDS: ATORVASTATIN 80 MG TAB PO SCH (20:08)
[2017-05-19] MEDS: METOPROLOL TARTRATE 25 MG TAB PO SCH (20:17)
[2017-05-19] MEDS ORDERED: ATORVASTATIN 10 MG TAB PO SCH (21:00)
[2017-05-19] MEDS ORDERED: DILTIAZEM HCL 25 MG/5 ML VIAL IV ONE (21:30)
[2017-05-19] MEDS ORDERED: oxyCODONE/ACETAMINOPHEN 5 MG/325 MG TAB PO PRN (21:45)
[2017-05-19] MEDS ORDERED: oxyCODONE/ACETAMINOPHEN 10 MG/325 MG TAB PO PRN (22:00)
[2017-05-19] MEDS: DILTIAZEM INJ 125 MG in SODIUM CHLORIDE 0.9% INJ 100 ML IV PRN (22:12)
[2017-05-19 22:31] LABS: HEMATOCRIT 36.4 % (39.0-51.0); HEMOGLOBIN 11.7 GM/DL (13.0-17.0); MEAN CELL VOLUME 81.5 FL (80.0-100.0); MEAN CORPUSCULAR HEMOGLOBIN 26.2 PG (27.0-34.0); MEAN CORPUSCULAR HGB CONC 32.2 % (32.0-36.0); MEAN PLATELET VOLUME 8.5 FL (7.0-11.0); PLATELET COUNT 206 TH/MM3 (150-450); RED BLOOD COUNT 4.46 MIL/MM3 (4.50-5.90); RED CELL DISTRIBUTION WIDTH 15.5 % (11.6-17.2); WHITE BLOOD COUNT 19.9 TH/MM3 (4.0-11.0)
[2017-05-19 23:01] LABS: BICARBONATE 28.2 MEQ/L (21.0-32.0); CALCIUM 8.3 MG/DL (8.5-10.1); CREATININE 2.26 MG/DL (0.60-1.30); MAGNESIUM 2.2 MG/DL (1.5-2.5)
[2017-05-19] MEDS: oxyCODONE/ACETAMINOPHEN 10 MG/325 MG TAB PO PRN (23:16)
[2017-05-20] VITALS (16 sets, daily range): BP systolic 130–214; BP diastolic 72–115; PULSE 75–102; RESP 0–29; TEMP 97.8–99.3; O2SAT 89–97
[2017-05-20] MEDS: CEFEPIME INJ 2,000 MG in SODIUM CHLORIDE 0.9% INJ 100 ML IV SCH ×2 (00:26→11:18)
[2017-05-20] MEDS: PROPOFOL 1000 MG/100 ML INJ 100 ML IV PRN ×11 (01:47→23:03)
[2017-05-20] MEDS: CHLORHEXIDINE GLUCONATE 2 % 1 PACK (2 CLOTHS) TOP SCH (03:14)
[2017-05-20] MEDS: RESP: ALBUTEROL 2.5 MG/IPRATROPIUM 0.5 MG NEB (SCH) INH ×4 (03:58→19:48)
[2017-05-20 04:30] LABS: AUTOMATED NEUTROPHIL # 17.9 TH/MM3 (1.8-7.7); BASOPHIL % 0.1 % (0.0-2.0); HEMATOCRIT 36.1 % (39.0-51.0); HEMOGLOBIN 11.9 GM/DL (13.0-17.0); LYMPH % 4.3 % (9.0-44.0); LYMPHOCYTE # 0.9 TH/MM3 (1.0-4.8); MEAN CELL VOLUME 82.4 FL (80.0-100.0); MEAN CORPUSCULAR HEMOGLOBIN 27.1 PG (27.0-34.0); MEAN CORPUSCULAR HGB CONC 32.9 % (32.0-36.0); MEAN PLATELET VOLUME 9.1 FL (7.0-11.0); MONO % 6.4 % (0.0-8.0); MONOCYTE # 1.3 TH/MM3 (0-0.9); NEUT % 89.2 % (16.0-70.0); PLATELET COUNT 184 TH/MM3 (150-450); RED BLOOD COUNT 4.38 MIL/MM3 (4.50-5.90); RED CELL DISTRIBUTION WIDTH 15.4 % (11.6-17.2); WHITE BLOOD COUNT 20.1 TH/MM3 (4.0-11.0)
[2017-05-20 04:40] LABS: ALBUMIN 3.2 GM/DL (3.4-5.0); ALT (GPT) 42 U/L (12-78); AST (GOT) 131 U/L (15-37); BICARBONATE 28.2 MEQ/L (21.0-32.0); BLOOD UREA NITROGEN 36 MG/DL (7-18); CALCIUM 8.1 MG/DL (8.5-10.1); CHLORIDE 106 MEQ/L (98-107); CREATININE 2.25 MG/DL (0.60-1.30); GLOMERULAR FILTRATION RATE 31 ML/MIN (>89); GLUCOSE,RANDOM 139 MG/DL (74-106); MAGNESIUM 2.2 MG/DL (1.5-2.5); PHOSPHORUS 3.8 MG/DL (2.5-4.9); SODIUM (NA) 140 MEQ/L (136-145)
[2017-05-20 04:42] LABS: ALKALINE PHOSPHATASE 87 U/L (45-117); TOTAL BILIRUBIN ADULT 0.6 MG/DL (0.2-1.0); TOTAL PROTEIN 7.6 GM/DL (6.4-8.2)
[2017-05-20] MEDS: oxyCODONE/ACETAMINOPHEN 10 MG/325 MG TAB PO PRN (05:40)
[2017-05-20] MEDS: DILTIAZEM INJ 125 MG in SODIUM CHLORIDE 0.9% INJ 100 ML IV PRN (05:41)
[2017-05-20] MEDS: FUROSEMIDE 40 MG/4 ML VIAL IV PUSH SCH (07:58)
[2017-05-20] MEDS: DOCUSATE SODIUM 50 MG/SENNA 8.6 MG TAB PO SCH ×2 (07:59→20:34)
[2017-05-20] MEDS: FAMOTIDINE 20 MG TAB PO SCH (07:59)
[2017-05-20] MEDS: METOPROLOL TARTRATE 25 MG TAB PO SCH ×2 (07:59→20:34)
[2017-05-20] MEDS: FAMOTIDINE 20 MG/2 ML VIAL IV PUSH SCH ×2 (07:59→20:34)
[2017-05-20] MEDS: ASPIRIN 81 MG CHEW TAB PO SCH (07:59)
[2017-05-20] MEDS: TICAGRELOR 90 MG TAB PO SCH ×2 (07:59→20:34)
[2017-05-20] MEDS: CHLORHEXIDINE 0.12% (ORAL KIT) 15 ML CUP MT SCH ×2 (08:00→20:33)
[2017-05-20] MEDS: SODIUM CHLORIDE 0.9% FLUSH 10 ML FLUSH IV FLUSH SCH ×2 (08:00→20:33)
[2017-05-20] MEDS ORDERED: ASP: Documented ESBL, MDR A baumannii or P. aeruginosa PRN (11:45)
[2017-05-20] MEDS ORDERED: MEROPENEM INJ 1,000 MG in SODIUM CHLORIDE 0.9% INJ 100 ML IV SCH (11:45)
[2017-05-20] MEDS ORDERED: MISCELLANEOUS PHARMACY INFORMATION XX PRN ×2 (11:45→12:00)
--- NOTE | 2017-05-20 12:57 | PD.CARD.PN ---
Subjective Subjective Remarks sedated, intubated Objective Medications Current Medications Medications (Trade) Dose Ordered Sig/Yi Route Start Time Stop Time Status Last Admin Diltiazem HCl 125 mg/Sodium Chloride 125 ml @ 5 mls/hr TITRATE PRN IV 05/18/17 23:45 05/20/17 05:41 Nitroglycerin/ Dextrose 250 ml @ 3 mls/hr TITRATE PRN IV 05/19/17 00:15 05/19/17 20:44 Fentanyl Citrate 250 ml @ 5 mls/hr TITRATE PRN IV 05/19/17 00:45 Insulin Human Regular 100 units/ Sodium Chloride 100 ml @ 0.5 mls/hr TITRATE PRN IV 05/19/17 00:45 (D50w (Vial) Inj) 50 ml UNSCH PRN IV PUSH 05/19/17 00:45 (Peridex 0.12% Liq) 15 ml BID@08,20 MT 05/19/17 08:00 05/20/17 08:00 Propofol 100 ml @ 6.6 mls/hr TITRATE PRN IV 05/19/17 01:30 05/20/17 10:53 (NS Flush) 2 ml UNSCH PRN IV FLUSH 05/19/17 01:30 (NS Flush) 2 ml BID IV FLUSH 05/19/17 09:00 05/20/17 08:00 (Tylenol) 650 mg Q6H PRN PO 05/19/17 01:30 (fentaNYL INJ) 50 mcg Q1H PRN IV PUSH 05/19/17 01:30 (Pepcid Inj) 20 mg Q12HR IV PUSH 05/19/17 09:00 05/19/17 20:09 (Versed Inj) 2 mg Q15M PRN IV PUSH 05/19/17 01:30 (Zofran Inj) 4 mg Q6H PRN IV PUSH 05/19/17 01:30 (Duoneb Neb) 1 ampule Q6HR NEB INH 05/19/17 04:00 05/20/17 08:17 (Albuterol Neb) 2.5 mg Q2HR NEB PRN INH 05/19/17 01:30 Miscellaneous Information 1 Q361D XX 05/19/17 01:30 (Chlorhexidine 2% Cloth) 3 pack Taper DAILY@04 TOP 05/19/17 04:00 05/15/18 03:59 05/20/17 03:14 (Chlorhexidine 2% Cloth) 3 pack UNSCH PRN TOP 05/19/17 01:30 (Daniella-Colace) 1 tab BID PO 05/19/17 09:00 05/20/17 07:59 (Milk Of Magnesia Liq) 30 ml Q12H PRN PO 05/19/17 01:30 (Senokot) 17.2 mg Q12H PRN PO 05/19/17 01:30 (Dulcolax Supp) 10 mg DAILY PRN RECTAL 05/19/17 01:30 (Lactulose Liq) 30 ml DAILY PRN PO 05/19/17 01:30 (Aspirin Chew) 81 mg DAILY PO 05/19/17 09:00 05/20/17 07:59 (Brilinta) 90 mg BID PO 05/19/17 09:00 05/20/17 07:59 (Lasix Inj) 40 mg DAILY IV PUSH 05/19/17 09:00 05/20/17 07:58 (Pill Splitter) 1 ea UNSCH PRN OTHER 05/19/17 02:45 (Trandate Inj) 10 mg Q4H PRN IV PUSH 05/19/17 05:30 05/19/17 20:42 (Lipitor) 80 mg HS PO 05/19/17 21:00 05/19/17 20:08 (Lopressor) 50 mg BID PO 05/19/17 21:00 05/20/17 07:59 Sodium Chloride 1,000 ml @ 75 mls/hr [id number] IV 05/19/17 11:00 05/19/17 22:19 (fentaNYL INJ) 50 mcg Q1H PRN IV PUSH 05/19/17 21:45 (fentaNYL INJ) 100 mcg Q1H PRN IV PUSH 05/19/17 21:45 05/20/17 12:15 (Percocet 10-325 Mg) 1 tab Q4H PRN PO 05/19/17 22:00 (Percocet 10-325 Mg) 2 tab Q4H PRN PO 05/19/17 22:00 05/20/17 05:40 (ASP Crit: Doc ESBL, MDR A baumannii or P aer) 1 UNSCH X1 PRN .XX 05/20/17 11:45 05/21/17 11:44 ([facility] Information) 1 UNSCH X1 PRN XX 05/20/17 11:45 05/21/17 11:44 ([facility] Information) 1 UNSCH X1 PRN XX 05/20/17 12:00 05/21/17 11:59 Ertapenem 1000 mg/ Sodium Chloride 100 ml @ 200 mls/hr Q24H IV 05/20/17 13:00 Vital Signs / I&O Vital Signs Date Time Temp Pulse Resp B/P (MAP) Pulse Ox O2 Delivery O2 Flow Rate FiO2 05/20/17 11:20 16 05/20/17 10:00 82 05/20/17 09:42 97 45 05/20/17 08:17 97 45 05/20/17 08:00 97.9 88 16 175/89 (117) 97 05/20/17 08:00 88 05/20/17 08:00 45 05/20/17 07:00 96 Mechanical Ventilator 45 05/20/17 05:41 88 172/92 05/20/17 04:00 98.7 93 16 160/72 (101) 97 05/20/17 04:00 50 05/20/17 03:58 97 50 05/20/17 01:06 97 60 05/20/17 00:00 60 05/20/17 00:00 99.3 102 16 175/115 (135) 97 05/19/17 22:45 110 179/94 05/19/17 22:32 102 168/93 05/19/17 22:12 126 171/127 05/19/17 21:49 97 60 05/19/17 20:44 120 176/109 05/19/17 20:09 98 60 05/19/17 20:00 99.5 154 16 212/143 (166) 98 05/19/17 20:00 60 05/19/17 19:00 97 Mechanical Ventilator 60 05/19/17 19:00 100 131/86 05/19/17 18:00 130 05/19/17 16:00 70 05/19/17 16:00 108 05/19/17 15:21 94 70 05/19/17 15:00 99.1 108 16 141/69 (93) 95 05/19/17 14:00 109 I/O 1/16/18 105/19/17 05/20/17 05/20/17 05/20/17 07:00 15:00 23:00 07:00 15:00 23:00 Intake Total 600 ml 1737 ml 904 ml 200 ml Output Total 250 ml 400 ml Balance 600 ml 1487 ml 504 ml 200 ml Intake Oral 0 ml IV Total 600 ml 1737 ml 784 ml 200 ml Other 120 ml Output Urine Total 250 ml 400 ml # Bowel Movements 0 0 Physical Exam GENERAL: Sedated, intubated SKIN: Warm and dry. HEAD: Normocephalic. EYES: No scleral icterus. No injection or drainage. NECK: Supple, trachea midline. No JVD or lymphadenopathy. CARDIOVASCULAR: irr Irr without murmurs, gallops, or rubs. RESPIRATORY: Vented GASTROINTESTINAL: Abdomen soft, non-tender, nondistended. EXTREMITIES: No cyanosis, or edema. Laboratory Laboratory Tests Test 05/19/17 21:56 05/19/17 22:21 05/20/17 03:45 White Blood Count 19.9 TH/MM3 20.1 TH/MM3 Red Blood Count 4.46 MIL/MM3 4.38 MIL/MM3 Hemoglobin 11.7 GM/DL 11.9 GM/DL Hematocrit 36.4 % 36.1 % Mean Corpuscular Volume 81.5 FL 82.4 FL Mean Corpuscular Hemoglobin 26.2 PG 27.1 PG Mean Corpuscular Hemoglobin Concent 32.2 % 32.9 % Red Cell Distribution Width 15.5 % 15.4 % Platelet Count 206 TH/MM3 184 TH/MM3 Mean Platelet Volume 8.5 FL 9.1 FL Blood Urea Nitrogen 35 MG/DL 36 MG/DL Creatinine 2.26 MG/DL 2.25 MG/DL Random Glucose 163 MG/DL 139 MG/DL Calcium Level 8.3 MG/DL 8.1 MG/DL Magnesium Level 2.2 MG/DL 2.2 MG/DL Sodium Level 138 MEQ/L 140 MEQ/L Potassium Level 4.2 MEQ/L 4.5 MEQ/L Chloride Level 103 MEQ/L 106 MEQ/L Carbon Dioxide Level 28.2 MEQ/L 28.2 MEQ/L Anion Gap 7 MEQ/L 6 MEQ/L Estimat Glomerular Filtration Rate 31 ML/MIN 31 ML/MIN Blood Gas Puncture Site RT RADIAL Blood Gas Patient Temperature 98.6 Blood Gas HCO3 26 mmol/L Blood Gas Base Excess 1.4 mmol/L Blood Gas Oxygen Saturation 96 % Arterial Blood pH 7.41 Arterial Blood Partial Pressure CO2 42 mmHg Arterial Blood Partial Pressure O2 108 mmHg Arterial Blood Oxygen Content 16.7 Vol % Arterial Blood Carboxyhemoglobin 0.7 % Arterial Blood Methemoglobin 1.4 % Blood Gas Hemoglobin 12.3 G/DL Oxygen Delivery Device VENTILATOR Blood Gas Ventilator Setting PC/AC Blood Gas Inspired Oxygen 60 % Neutrophils (%) (Auto) 89.2 % Lymphocytes (%) (Auto) 4.3 % Monocytes (%) (Auto) 6.4 % Eosinophils (%) (Auto) 0.0 % Basophils (%) (Auto) 0.1 % Neutrophils # (Auto) 17.9 TH/MM3 Lymphocytes # (Auto) 0.9 TH/MM3 Monocytes # (Auto) 1.3 TH/MM3 Eosinophils # (Auto) 0.0 TH/MM3 Basophils # (Auto) 0.0 TH/MM3 CBC Comment DIFF FINAL Differential Comment Total Protein 7.6 GM/DL Albumin 3.2 GM/DL Phosphorus Level 3.8 MG/DL Alkaline Phosphatase 87 U/L Aspartate Amino Transf (AST/SGOT) 131 U/L Alanine Aminotransferase (ALT/SGPT) 42 U/L Total Bilirubin 0.6 MG/DL Assessment and Plan Problem List: (1) STEMI (ST elevation myocardial infarction) ICD Codes: I21.3 - ST elevation (STEMI) myocardial infarction of unspecified site Status: Acute Plan: 51 y/o M s/p PCI/SUMI to OM in the setting of STEMI. Remains hemodynamically stable, sedated, intubated. Stable from CV standpoint. Recommendations: 1. DAPT with ASA and Brilinta 2. BB, Statin, Imdur, ACEi 3. Early extubation (2) Atrial fibrillation ICD Codes: I48.91 - Unspecified atrial fibrillation Status: Chronic (3) JAIMEE (acute kidney injury) ICD Codes: N17.9 - Acute kidney failure, unspecified Status: Acute (4) Morbid obesity with BMI of 50.0-59.9, adult ICD Codes: E66.01 - Morbid (severe) obesity due to excess calories; Z68.43 - Body mass index (BMI) 50-59.9 , adult Status: Chronic (5) Respiratory failure ICD Codes: J96.90 - Respiratory failure, unspecified, unspecified whether with hypoxia or hypercapnia Status: Acute Problem Qualifiers (1) STEMI (ST elevation myocardial infarction): Qualified Codes: I21.3 - ST elevation (STEMI) myocardial infarction of unspecified site (2) Respiratory failure: Qualified Codes: J96.00 - Acute respiratory failure, unspecified whether with hypoxia or hypercapnia Hilario Moss MD May 20, 2017 12:57
[2017-05-20] MEDS ORDERED: ERTAPENEM INJ 1,000 MG in SODIUM CHLORIDE 0.9% INJ 100 ML IV SCH (13:00)
[2017-05-20] MEDS: SODIUM CHLOR 0.9% 1000 ML INJ 1,000 ML IV SCH (13:05)
--- NOTE | 2017-05-20 13:12 | RADRPT ---
EXAM DATE/TIME: 05/20/2017 12:10 [facility] COMPARISON: CHEST SINGLE AP, May 19, 2017, 9:23. INDICATIONS : Shortness of breath. MEDICAL HISTORY : Congestive heart failure. Hypertension. SURGICAL HISTORY : Cholecystectomy. ENCOUNTER: Subsequent ACUITY: 2 days PAIN SCORE: Non-responsive. LOCATION: Bilateral chest FINDINGS: A single view of the chest demonstrates the endotracheal tube is at the level of the clavicles. There is a nasogastric tube and right IJ central line. The heart is enlarged. Osseous structures are inta ct. CONCLUSION: The heart is enlarged. Tubes and catheters in good position. Jared Silverio MD on May 20, 2017 at 13:08 Board Certified Radiologist. This report was verified electronically.
[2017-05-20] MEDS: LABETALOL HCL 100 MG/20 ML VIAL IV PUSH PRN (13:18)
[2017-05-20] MEDS: niCARdipine INJ 25 MG in SODIUM CHLOR 0.9% 250 ML INJ 240 ML IV PRN ×4 (14:08→22:19)
--- NOTE | 2017-05-20 14:57 | HHI.CCPN ---
Subjective Remarks/Hospital Course 51-year-old morbidly obese male with past history of atrial fibrillation with prior electrical cardioversion, chronic systolic heart failure , chronic neck and back pain, urinary incontinence, asthma/COPD, super morbid obesity who presents to [facility] emergency department after experiencing acute onset of shortness of breath. His is at bedside and states that the he was getting ready to go to bed and began walking and became short of breath and felt like he needed to sit up to breathe. When E VAC arrived he appeared cyanotic and they were unable to obtain sats by pulse ox. They administered albuterol neb, Solu-Medrol, etomidate, Ativan and attempted to intubate. Multiple attempts at endotracheal intubation were unsuccessful so they ultimately placed a Combitube at which point he vomited and went into PEA cardiac arrest. He was administered CPR and epinephrine 2 and had return of spontaneous circulation. He subsequently was in atrial fibrillation with RVR. Combitube was removed and he was reintubated by Dr. Anuja Wilson in the emergency department. She states airway was difficult with minimal mouth opening and that he was ultimately intubated with 4 Mac after multiple unsuccessful attempts with C-Mac. He was started on NTG drip due to hypertension and was started on cardizem drip for A fib RVR with rate 140s, given Lasix 80 mg IV. EKG then showed ST elevation in lead III and AVF and STEMI alert was called. He was subsequently hypoxic and hypercapneic on vent and RT initially tried on Bi-level but PaO2 was 51. Placed on PCV, sedated with propofol, fentanyl and administered paralytic and oxygenation improved adequately for transfer to cathode maker. He was then handed off to cathode maker team and underwent SUMI to OM1 per Dr. Iyer. Post cath he was off paralytic and sedation was held. He followed commands with all extremities and thus did not proceed with induced therapeutic hypothermia. 05/20: Remains intubated sedated. CXR shows persistent LLL infiltrate. UTI with ESBL E Coli. Cefepime DC'd and Ertapenem started. FiO2 45%, PEEP at 12. Start weaning. Currently rate controlled on Cardizem infusion. Nicardipine started for blood pressure control. Creat stable at 2.25 Objective Vital Signs Date Time Temp Pulse Resp B/P (MAP) Pulse Ox O2 Delivery O2 Flow Rate FiO2 05/20/17 14:08 91 198/123 05/20/17 12:00 97.8 0 94 05/20/17 09:42 45 05/20/17 07:00 Mechanical Ventilator 05/18/17 22:42 15.00 Intake and Output 05/20/17 05/20/17 05/21/17 08:00 16:00 00:00 Intake Total 805 ml 300 ml Output Total 400 ml Balance 405 ml 300 ml Result Diagram: 05/20/17 0345 05/20/17 0345 Other Results Microbiology Date/Time Source Procedure Growth Status 05/18/17 23:30 Nasal Aspirate Influenza Types A,B Antigen (JOSSELIN) - Final NEGATIVE FOR FLU A AND B ANTIGEN.... Complete 05/18/17 23:15 Urine Random Urine Urine Culture - Final Escherichia Coli Esbl Positive Complete Laboratory Tests Test 05/19/17 22:21 Blood Gas Puncture Site RT RADIAL Blood Gas Patient Temperature 98.6 Blood Gas HCO3 26 mmol/L (22-26) Blood Gas Base Excess 1.4 mmol/L (-2-2) Blood Gas Oxygen Saturation 96 % (90-100) Arterial Blood pH 7.41 (7.380-7.420) Arterial Blood Partial Pressure CO2 42 mmHg (38-42) Arterial Blood Partial Pressure O2 108 mmHg (61-120) Arterial Blood Oxygen Content 16.7 Vol % (12.0-20.0) Arterial Blood Carboxyhemoglobin 0.7 % (0-4) Arterial Blood Methemoglobin 1.4 % (0-2) Blood Gas Hemoglobin 12.3 G/DL (12.0-16.0) Oxygen Delivery Device VENTILATOR Blood Gas Ventilator Setting PC/AC Blood Gas Inspired Oxygen 60 % Objective Remarks GENERAL: Morbidly obese male who is laying in bed critically ill SKIN: Cool, moist HEAD: Atraumatic. Normocephalic. EYES: Pupils 4 mm and reactive to 2 mm bilaterally.. No scleral icterus. No injection or drainage. ENT: No nasal bleeding or discharge. Mucous membranes pink and moist. NECK: Trachea midline. Unable to appreciate JVD due to body habitus. CARDIOVASCULAR: Heart sounds distant. No murmur rub or gallop appreciated. A fib on monitor RESPIRATORY: Coarse bilateral breath sounds. Diminished at the bases GASTROINTESTINAL: Abdomen protuberant, overall soft. Unable to appreciate tenderness, rebound. MUSCULOSKELETAL: Extremities without clubbing, cyanosis, or edema. No obvious deformities. NEUROLOGICAL: Remains heavily sedated, GRACIELA. Slight withdrawal to pain A/P Problem List: (1) Cardiac arrest ICD Code: I46.9 - Cardiac arrest, cause unspecified Status: Acute (2) Difficult airway for intubation ICD Code: T88.4XXA - Failed or difficult intubation, initial encounter Status: Acute (3) Leukocytosis ICD Code: D72.829 - Elevated white blood cell count, unspecified Status: Acute (4) Aspiration into airway ICD Code: T17.908A - Unspecified foreign body in respiratory tract, part unspecified causing other injury, initial encounter Status: Acute (5) Respiratory failure with hypoxia and hypercapnia ICD Code: J96.91 - Respiratory failure, unspecified with hypoxia; J96.92 - Respiratory failure, unspecified with hypercapnia Status: Acute (6) Morbid obesity with BMI of 50.0-59.9, adult ICD Code: E66.01 - Morbid (severe) obesity due to excess calories; Z68.43 - Body mass index (BMI) 50-59.9 , adult Status: Chronic (7) JAIMEE (acute kidney injury) ICD Code: N17.9 - Acute kidney failure, unspecified Status: Acute (8) Atrial fibrillation ICD Code: I48.91 - Unspecified atrial fibrillation Status: Chronic (9) STEMI (ST elevation myocardial infarction) ICD Code: I21.3 - ST elevation (STEMI) myocardial infarction of unspecified site Status: Acute (10) Pulmonary edema ICD Code: J81.1 - Chronic pulmonary edema Status: Acute (11) Encephalopathy acute ICD Code: G93.40 - Encephalopathy, unspecified (12) Lactic acid acidosis ICD Code: E87.2 - Acidosis (13) VENANCIO (obstructive sleep apnea) ICD Code: G47.33 - Obstructive sleep apnea (adult) (pediatric) Status: Chronic (14) Systolic heart failure, chronic ICD Code: I50.22 - Chronic systolic (congestive) heart failure Status: Chronic (15) Hypertriglyceridemia ICD Code: E78.1 - Pure hyperglyceridemia Assessment and Plan NEURO: Acute encephalopathy upon arrival secondary to hypercapnia Peripheral neuropathy Depression Slowly wean propofol, fentanyl for sedation. Start Precedex to facilitate vent weaning Dr. Tan Performed sedation vacation and patient followed commands-did not meet criteria for induced therapeutic hypothermia. Hold gabapentin 1200 mg by mouth twice a day for now Hold duloxetine/Lexapro Follow-up urine drug screen RESP: Acute hypercapnic and hypoxemic respiratory failure Difficult airway Pulmonary edema Chemical Aspiration pneumonitis prior Tobacco abuse Obstructive sleep apnea Multiple E VAC attempts at airway unsuccessful. Ultimately was able to intubate with 4 Mac (multiple attempts apparently). There was difficulty with mouth opening. Profound hypoxemia upon arrival. Adjusted ventilator to pressure control ventilation with inspiratory pressure 30/I time 1.4/PEEP 12/FiO2 100%. Currently FIo2 at 45, PEEP 12. IF tolerating 8 PEEP, will switch to ACV Chest x-ray LLL infiltrate. Hx of aspiration DuoNeb every 6 hours. Albuterol every 2 hours as needed. CV: STEMI PEA cardiac arrest which was likely respiratory arrest due to hypoxemia and difficult airway Atrial fibrillation with prior electrical cardioversion Chronic systolic heart failure Hypertension Hypertriglyceridemia Lactic acidemia Taken urgently to cathode maker where he underwent drug-eluting stent to OM1 by Dr. Iyer 05/19/17 Echo 03/26/17ejection fraction 40-45% , Mild TR, mild LVH. Pulmonary artery pressure 29.9. Atorvastatin 80 daily at bedtime per Dr. Iyer Aspirin 81 daily, Brilinta 90 mg by mouth twice a day Metoprolol 50 g by mouth twice a day per Dr. Iyer Lasix 40 mg IV daily. May need more aggressive diuresis. Trend lactic acid GI: Super morbid obesity OG tube to low intermittent wall suction Start tube feeds in 24 hours if not extubated FEN/RENAL: Acute kidney injury Gandhi in place. Monitor intake and output. Monitor electrolytes. C ID: ESBL Ecoli UTI Likely also chemical aspiration pneumonitis Currently on Cefepime 2 gram IV q12 hours and adjust based on culture data.- cahnged to Ertapenem based on ESBL E COLI Followup urine culture. Obtain blood and sputum cultures. HEME: No acute hematologic issues. Antiplatelet and anticoagulant therapy per cardiology ENDO: Acute hyperglycemia without known history of diabetes. Insulin drip algorithm #1 PROPH: SCDs for DVT prophylaxis. Pharmacologic DVT prophylaxis with heparin start today. Received heparin bolus in cathode maker. Famotidine for stress ulcer prophylaxis. ACCESS: PIV providing adequate access at this time. Place central venous line if needed. Patient's was updated at bedside. Patient is full code. Critical care time 50 minutes exclusive of separately billable procedures. Problem Qualifiers (1) STEMI (ST elevation myocardial infarction): Qualified Codes: I21.3 - ST elevation (STEMI) myocardial infarction of unspecified site Julia Zavaleta MD May 20, 2017 14:57
[2017-05-20] MEDS ORDERED: DEXMEDETOMIDINE INJ 200 MCG in SODIUM CHLORIDE 0.9% INJ 50 ML IV PRN (15:00)
[2017-05-20] MEDS: DEXMEDETOMIDINE INJ 200 MCG in SODIUM CHLORIDE 0.9% INJ 50 ML IV PRN ×2 (15:44→17:43)
[2017-05-20] MEDS: DILTIAZEM HCL 60 MG TAB PO SCH ×2 (16:12→21:33)
[2017-05-20] MEDS: HEPARIN SODIUM - SQ 10,000 UNITS/ML VIAL SQ SCH (20:34)
[2017-05-20] MEDS: ATORVASTATIN 80 MG TAB PO SCH (20:34)
[2017-05-21] VITALS (20 sets, daily range): BP systolic 137–172; BP diastolic 60–101; PULSE 66–100; RESP 18–24; TEMP 97.6–98.7; O2SAT 91–97
[2017-05-21] MEDS: niCARdipine INJ 25 MG in SODIUM CHLOR 0.9% 250 ML INJ 240 ML IV PRN ×7 (00:37→23:12)
[2017-05-21] MEDS: SODIUM CHLOR 0.9% 1000 ML INJ 1,000 ML IV SCH ×2 (00:37→11:41)
[2017-05-21] MEDS: PROPOFOL 1000 MG/100 ML INJ 100 ML IV PRN ×8 (02:39→23:12)
[2017-05-21] MEDS: RESP: ALBUTEROL 2.5 MG/IPRATROPIUM 0.5 MG NEB (SCH) INH ×3 (03:39→20:34)
[2017-05-21] MEDS: DILTIAZEM HCL 60 MG TAB PO SCH ×4 (03:48→21:42)
[2017-05-21] MEDS: CHLORHEXIDINE GLUCONATE 2 % 1 PACK (2 CLOTHS) TOP SCH (03:48)
--- NOTE | 2017-05-21 04:49 | RADRPT ---
EXAM DATE/TIME: 05/21/2017 03:18 [facility] COMPARISON: CHEST SINGLE AP, May 20, 2017, 12:10. INDICATIONS : Shortness of breath, possible pulmonary disease. MEDICAL HISTORY : Congestive heart failure. Hypertension SURGICAL HISTORY : Cholecystectomy. ENCOUNTER: Subsequent ACUITY: 3 days PAIN SCORE: Non-responsive. LOCATION: Bilateral chest FINDINGS: There is an ET tube 6.8 cm from the praveen. The NG tube is directed into the stomach. The cardiac dahlia houette is enlarged. There is diffuse consolidation seen. There is silhouetting of the left hemidiaph ragm. CONCLUSION: Cardiomegaly with diffuse consolidation likely related to CHF. There is further atelectasis, consolid ation, and/or effusion seen in the left base causing silhouetting of the left hemidiaphragm. Waqar Solano MD on May 21, 2017 at 4:46 Board Certified Radiologist. This report was verified electronically.
[2017-05-21] MEDS: ASPIRIN 81 MG CHEW TAB PO SCH (09:23)
[2017-05-21] MEDS: HEPARIN SODIUM - SQ 10,000 UNITS/ML VIAL SQ SCH (09:23)
[2017-05-21] MEDS: METOPROLOL TARTRATE 25 MG TAB PO SCH ×2 (09:23→20:12)
[2017-05-21] MEDS: TICAGRELOR 90 MG TAB PO SCH ×2 (09:24→20:12)
[2017-05-21] MEDS: FUROSEMIDE 40 MG/4 ML VIAL IV PUSH SCH ×2 (09:24→20:10)
[2017-05-21] MEDS: SODIUM CHLORIDE 0.9% FLUSH 10 ML FLUSH IV FLUSH SCH ×2 (09:25→20:08)
[2017-05-21] MEDS: FAMOTIDINE 20 MG/2 ML VIAL IV PUSH SCH ×2 (09:26→20:10)
[2017-05-21] MEDS: CHLORHEXIDINE 0.12% (ORAL KIT) 15 ML CUP MT SCH ×2 (09:26→20:13)
[2017-05-21 10:59] LABS: AUTOMATED NEUTROPHIL # 14.7 TH/MM3 (1.8-7.7); BASOPHIL % 0.2 % (0.0-2.0); EOSINOPHIL # 0.1 TH/MM3 (0-0.4); EOSINOPHIL % 0.9 % (0.0-4.0); HEMATOCRIT 34.3 % (39.0-51.0); HEMOGLOBIN 11.3 GM/DL (13.0-17.0); LYMPH % 6.1 % (9.0-44.0); MEAN CELL VOLUME 82.4 FL (80.0-100.0); MEAN CORPUSCULAR HEMOGLOBIN 27.2 PG (27.0-34.0); MEAN PLATELET VOLUME 9.1 FL (7.0-11.0); MONO % 6.1 % (0.0-8.0); NEUT % 86.7 % (16.0-70.0); PLATELET COUNT 189 TH/MM3 (150-450); RED BLOOD COUNT 4.16 MIL/MM3 (4.50-5.90); RED CELL DISTRIBUTION WIDTH 15.8 % (11.6-17.2)
[2017-05-21] MEDS ORDERED: MISCELLANEOUS PHARMACY INFORMATION XX PRN (11:00)
[2017-05-21] MEDS ORDERED: ASP: Documented ESBL, MDR A baumannii or P. aeruginosa PRN (11:00)
--- NOTE | 2017-05-21 11:04 | HHI.CCPN ---
Subjective Remarks/Hospital Course 51-year-old morbidly obese male with past history of atrial fibrillation with prior electrical cardioversion, chronic systolic heart failure , chronic neck and back pain, urinary incontinence, asthma/COPD, super morbid obesity who presents to [facility] emergency department after experiencing acute onset of shortness of breath. His is at bedside and states that the he was getting ready to go to bed and began walking and became short of breath and felt like he needed to sit up to breathe. When E VAC arrived he appeared cyanotic and they were unable to obtain sats by pulse ox. They administered albuterol neb, Solu-Medrol, etomidate, Ativan and attempted to intubate. Multiple attempts at endotracheal intubation were unsuccessful so they ultimately placed a Combitube at which point he vomited and went into PEA cardiac arrest. He was administered CPR and epinephrine 2 and had return of spontaneous circulation. He subsequently was in atrial fibrillation with RVR. Combitube was removed and he was reintubated by Dr. Anuja Wilson in the emergency department. She states airway was difficult with minimal mouth opening and that he was ultimately intubated with 4 Mac after multiple unsuccessful attempts with C-Mac. He was started on NTG drip due to hypertension and was started on cardizem drip for A fib RVR with rate 140s, given Lasix 80 mg IV. EKG then showed ST elevation in lead III and AVF and STEMI alert was called. He was subsequently hypoxic and hypercapneic on vent and RT initially tried on Bi-level but PaO2 was 51. Placed on PCV, sedated with propofol, fentanyl and administered paralytic and oxygenation improved adequately for transfer to carpenter/labor. He was then handed off to carpenter/labor team and underwent SUMI to OM1 per Dr. Iyer. Post cath he was off paralytic and sedation was held. He followed commands with all extremities and thus did not proceed with induced therapeutic hypothermia. 05/20: Remains intubated sedated. CXR shows persistent LLL infiltrate. UTI with ESBL E Coli. Cefepime DC'd and Ertapenem started. FiO2 45%, PEEP at 12. Start weaning. Currently rate controlled on Cardizem infusion. Nicardipine started for blood pressure control. Creat stable at 2.25 05/21: Patient remains critically ill with clinical improvement. FiO2 had to be increased to 85%, PEEP to 12. Chest x-ray shows pulmonary edema and left lower lobe infiltrate. I will get CT of the chest to evaluate infiltrate and assess for need for bronchoscopy. UO 2600 ml with Lasix. Patient was started on ertapenem yesterday for ESBL Escherichia coli-I were changed to meropenem to cover for Pseudomonas and also add Zyvox. Sputum Gram stain shows GPC Objective Vital Signs Date Time Temp Pulse Resp B/P (MAP) Pulse Ox O2 Delivery O2 Flow Rate FiO2 05/21/17 10:24 94 100 05/21/17 09:51 88 144/70 05/21/17 04:00 98.5 19 05/20/17 07:00 Mechanical Ventilator 05/18/17 22:42 15.00 Intake and Output 05/21/17 05/21/17 05/22/17 08:00 16:00 00:00 Intake Total 2050 ml Output Total 800 ml 450 ml Balance 1250 ml -450 ml Result Diagram: 05/20/17 0345 05/20/17 0345 Other Results Microbiology Date/Time Source Procedure Growth Status 05/18/17 23:30 Nasal Aspirate Influenza Types A,B Antigen (JOSSELIN) - Final NEGATIVE FOR FLU A AND B ANTIGEN.... Complete 05/18/17 23:15 Urine Random Urine Urine Culture - Final Escherichia Coli Esbl Positive Complete Objective Remarks GENERAL: Morbidly obese male who is laying in bed critically ill SKIN: Cool, moist HEAD: Atraumatic. Normocephalic. EYES: Pupils 4 mm and reactive to 2 mm bilaterally.. No scleral icterus. No injection or drainage. ENT: No nasal bleeding or discharge. Mucous membranes pink and moist. NECK: Trachea midline. Unable to appreciate JVD due to body habitus. CARDIOVASCULAR: Heart sounds distant. No murmur rub or gallop appreciated. A fib on monitor RESPIRATORY: Coarse bilateral breath sounds. Diminished at the bases. ACV changed to PC/AC PEEP increased to 12. FiO2 85% GASTROINTESTINAL: Abdomen protuberant, overall soft. Unable to appreciate tenderness, rebound. MUSCULOSKELETAL: Extremities without clubbing, cyanosis, or edema. No obvious deformities. NEUROLOGICAL: Remains heavily sedated, GRACIELA. Slight withdrawal to pain A/P Problem List: (1) Cardiac arrest ICD Code: I46.9 - Cardiac arrest, cause unspecified Status: Acute (2) Difficult airway for intubation ICD Code: T88.4XXA - Failed or difficult intubation, initial encounter Status: Acute (3) Leukocytosis ICD Code: D72.829 - Elevated white blood cell count, unspecified Status: Acute (4) Aspiration into airway ICD Code: T17.908A - Unspecified foreign body in respiratory tract, part unspecified causing other injury, initial encounter Status: Acute (5) Respiratory failure with hypoxia and hypercapnia ICD Code: J96.91 - Respiratory failure, unspecified with hypoxia; J96.92 - Respiratory failure, unspecified with hypercapnia Status: Acute (6) Morbid obesity with BMI of 50.0-59.9, adult ICD Code: E66.01 - Morbid (severe) obesity due to excess calories; Z68.43 - Body mass index (BMI) 50-59.9 , adult Status: Chronic (7) JAIMEE (acute kidney injury) ICD Code: N17.9 - Acute kidney failure, unspecified Status: Acute (8) Atrial fibrillation ICD Code: I48.91 - Unspecified atrial fibrillation Status: Chronic (9) STEMI (ST elevation myocardial infarction) ICD Code: I21.3 - ST elevation (STEMI) myocardial infarction of unspecified site Status: Acute (10) Pulmonary edema ICD Code: J81.1 - Chronic pulmonary edema Status: Acute (11) Encephalopathy acute ICD Code: G93.40 - Encephalopathy, unspecified (12) Lactic acid acidosis ICD Code: E87.2 - Acidosis (13) VENANCIO (obstructive sleep apnea) ICD Code: G47.33 - Obstructive sleep apnea (adult) (pediatric) Status: Chronic (14) Systolic heart failure, chronic ICD Code: I50.22 - Chronic systolic (congestive) heart failure Status: Chronic (15) Hypertriglyceridemia ICD Code: E78.1 - Pure hyperglyceridemia Assessment and Plan NEURO: Acute encephalopathy upon arrival secondary to hypercapnia Peripheral neuropathy Depression Remains heavily sedated and intubated sedation vacation at this time due to severe hypoxemia Dr. Tan Performed sedation vacation and patient followed commands-did not meet criteria for induced therapeutic hypothermia. Hold gabapentin 1200 mg by mouth twice a day for now Hold duloxetine/Lexapro Follow-up urine drug screen-pending at this time RESP: Acute hypercapnic and hypoxemic respiratory failure ARDS Aspiration pneumonia Difficult airway Pulmonary edema prior Tobacco abuse Obstructive sleep apnea Multiple E VAC attempts at airway unsuccessful. Ultimately was able to intubate with 4 Mac (multiple attempts apparently). There was difficulty with mouth opening. Profound hypoxemia upon arrival. Adjusted ventilator to pressure control ventilation with inspiratory pressure 30/I time 1.4/PEEP 12/FiO2 100%. Currently FIo2 at 45, PEEP 12. Now on ACV not tolerating. Change back to PCV PEEP 12, FiO2 85% insp p 22, inp T 1.[address] chest today ABX changed to meropenem and Zyvox added on sputum culture DuoNeb every 6 hours. Albuterol every 2 hours as needed. CV: STEMI Pulmonary edema PEA cardiac arrest which was likely respiratory arrest due to hypoxemia and difficult airway Atrial fibrillation with prior electrical cardioversion Acute on Chronic systolic heart failure Hypertension Hypertriglyceridemia Lactic acidemia Taken urgently to carpenter/labor where he underwent drug-eluting stent to OM1 by Dr. Iyer 05/19/17 Echo 03/26/17ejection fraction 40-45% , Mild TR, mild LVH. Pulmonary artery pressure 29.9. Atorvastatin 80 daily at bedtime per Dr. Iyer Aspirin 81 daily, Brilinta 90 mg by mouth twice a day Metoprolol 50 g by mouth twice a day per Dr. Iyer. Increase to 50 q8 Continue cardizem for A fib rate control Lasix 40 mg IV daily. increase to 40 q12 Trend lactic acid Start anticoagulation with IV heparin due to persistent A. fib GI: Super morbid obesity OG tube to low intermittent wall suction Start tube feeds with Glucerna Bowel regimen FEN/RENAL: Acute kidney injury Gandhi in place. Monitor intake and output. Monitor electrolytes. Increase Lasix to 40 mg every 12 ID: ESBL Ecoli UTI Aspiration pneumonia predominantly left lower lobe Currently on Cefepime 2 gram IV q12 hours and adjust based on culture data.- changed to Ertapenem based on ESBL E COLI 05/20 DC ertapenem and start meropenem for Pseudomonas coverage. Add Zyvox for gram- positive's in sputum Followup urine culture, blood and sputum cultures. HEME: No acute hematologic issues. Antiplatelet and anticoagulant therapy per cardiology Start IV heparin ENDO: Acute hyperglycemia without known history of diabetes. Insulin drip algorithm #1 PROPH: SCDs for DVT prophylaxis. IV heparin start today. Received heparin bolus in carpenter/labor. Famotidine for stress ulcer prophylaxis. ACCESS: PIV providing adequate access at this time. Place central venous line if needed. Patient's was updated at bedside. Patient is full code. Critical care time 50 minutes exclusive of separately billable procedures. Patient at this time remains critically ill with guarded prognosis. He has multiorgan failure andhypoxemia does not improve and in fact worsening with developing ARDS. In addition patient has acute STEMI, systolic CHF exacerbation and renal failure along with sepsis Problem Qualifiers (1) STEMI (ST elevation myocardial infarction): Qualified Codes: I21.3 - ST elevation (STEMI) myocardial infarction of unspecified site Julia Zavaleta MD May 21, 2017 11:04
[2017-05-21 11:17] LABS: ALBUMIN 2.9 GM/DL (3.4-5.0); ALT (GPT) 34 U/L (12-78); AST (GOT) 78 U/L (15-37); BICARBONATE 25.6 MEQ/L (21.0-32.0); BLOOD UREA NITROGEN 36 MG/DL (7-18); CALCIUM 7.8 MG/DL (8.5-10.1); CHLORIDE 107 MEQ/L (98-107); GLOMERULAR FILTRATION RATE 43 ML/MIN (>89); GLUCOSE,RANDOM 114 MG/DL (74-106); SODIUM (NA) 142 MEQ/L (136-145)
[2017-05-21 11:27] LABS: ALKALINE PHOSPHATASE 83 U/L (45-117); TOTAL BILIRUBIN ADULT 0.6 MG/DL (0.2-1.0); TOTAL PROTEIN 7.3 GM/DL (6.4-8.2)
[2017-05-21 12:48] LABS: INTERNATIONAL NORMALIZED RATIO 1.2 RATIO; PROTHROMBIN TIME - PATIENT 11.7 SEC (9.8-11.6)
[2017-05-21] MEDS: BENEPROTEIN POWDER 1 PACK G-TUBE SCH ×2 (13:00→18:00)
--- NOTE | 2017-05-21 13:02 | RADRPT ---
EXAM DATE/TIME: 05/21/2017 12:34 [facility] COMPARISON: CHEST SINGLE AP, May 21, 2017, 3:18. INDICATIONS : Evaluate for infiltrate or aspiration. Shortness of breath and cardiomegaly. Abnormal chest x-ray wit h consolidation which could indicate congestive heart failure. RADIATION DOSE: 23.14 CTDIvol (mGy) MEDICAL HISTORY : Hypertension. Cardiovascular disease SURGICAL HISTORY : Cholecystectomy. ENCOUNTER: Initial ACUITY: 1 day PAIN SCALE: 0/10 LOCATION: chest TECHNIQUE: Volumetric scanning of the chest was performed. Using automated exposure control and adjustment of t he mA and/or kV according to patient size, radiation dose was kept as low as reasonably achievable to obtain optimal diagnostic quality images. DICOM format image data is available electronically for r eview and comparison. Follow-up recommendations for detected pulmonary nodules are based at a minimum on nodule size and pa tient risk factors according to Fleischner Society Guidelines. FINDINGS: LUNGS: There is consolidation in both posterior lung bases with air bronchograms. There is no definite perih ilar edema. There is consolidation in the posterior right upper lobe as well. PLEURAE: There is no pleural thickening or pleural effusion. MEDIASTINUM: The heart size is mildly enlarged. There is an endotracheal tube in place with the tip several centim eters above the praveen. Nasogastric tube is seen coursing through the esophagus into the stomach. Tra cheal calcifications are present. There is no evidence of adenopathy on this noncontrast study. There is no pericardial effusion. AXILLAE: Within normal limits. No lymphadenopathy. MUSCULOSKELETAL: Within normal limits for patient age. MISCELLANEOUS: The visualized upper abdominal organs demonstrate no acute abnormality. The patient is status post ch olecystectomy CONCLUSION: 1. Consolidation in the posterior right upper lobe and of lower lobes which could indicate pneumonia. 2. Moderate cardiomegaly coronary artery calcifications. 3. Endotracheal tube and nasogastric tube in place. 4. Status post cholecystectomy. Jas Kelley MD on May 21, 2017 at 12:56 Board Certified Radiologist. This report was verified electronically.
[2017-05-21] MEDS: LINEZOLID 600 MG PREMIX 300 ML IV SCH (14:53)
[2017-05-21] MEDS: HEPARIN-D5W 25,000 U/250 ML 250 ML IV PRN (14:59)
[2017-05-21] MEDS: MEROPENEM INJ 1,000 MG in SODIUM CHLORIDE 0.9% INJ 100 ML IV SCH ×2 (15:49→21:42)
[2017-05-21] MEDS: DOCUSATE SODIUM 50 MG/SENNA 8.6 MG TAB PO SCH ×2 (15:49→20:12)
[2017-05-21 17:23] LABS: HEMATOCRIT 34.6 % (39.0-51.0); HEMOGLOBIN 11.3 GM/DL (13.0-17.0); MEAN CELL VOLUME 83.2 FL (80.0-100.0); MEAN CORPUSCULAR HEMOGLOBIN 27.2 PG (27.0-34.0); MEAN CORPUSCULAR HGB CONC 32.7 % (32.0-36.0); MEAN PLATELET VOLUME 9.3 FL (7.0-11.0); PLATELET COUNT 183 TH/MM3 (150-450); RED BLOOD COUNT 4.17 MIL/MM3 (4.50-5.90); RED CELL DISTRIBUTION WIDTH 16.1 % (11.6-17.2); WHITE BLOOD COUNT 16.8 TH/MM3 (4.0-11.0)
[2017-05-21] MEDS: ATORVASTATIN 80 MG TAB PO SCH (20:12)
--- NOTE | 2017-05-21 23:28 | EKG ---
Date Performed: 05/20/2017 Time Performed: 05:30:50 PTAGE: 51 years EKG: Atrial fibrillation Extensive ST-T changes are nonspecific Abnormal ECG PREVIOUS TRACING : 05/19/2017 06.12 Since previous tracing, no significant change noted DOCTOR: Sotero [place] Interpretating Date/Time 05/21/2017 23:27:01
[2017-05-22] VITALS (19 sets, daily range): BP systolic 143–188; BP diastolic 71–86; PULSE 73–104; RESP 11–43; TEMP 98.8–99.3; O2SAT 92–98
[2017-05-22] MEDS: PROPOFOL 1000 MG/100 ML INJ 100 ML IV PRN ×12 (02:02→22:37)
[2017-05-22] MEDS: CHLORHEXIDINE GLUCONATE 2 % 1 PACK (2 CLOTHS) TOP SCH (02:54)
[2017-05-22] MEDS: LINEZOLID 600 MG PREMIX 300 ML IV SCH ×2 (02:54→13:44)
[2017-05-22] MEDS: DILTIAZEM HCL 60 MG TAB PO SCH ×4 (03:30→20:20)
[2017-05-22] MEDS: niCARdipine INJ 25 MG in SODIUM CHLOR 0.9% 250 ML INJ 240 ML IV PRN ×9 (03:31→22:20)
[2017-05-22] MEDS: RESP: ALBUTEROL 2.5 MG/IPRATROPIUM 0.5 MG NEB (SCH) INH ×4 (03:46→20:12)
[2017-05-22 03:59] LABS: BASOPHIL # 0.1 TH/MM3 (0-0.2); BASOPHIL % 0.5 % (0.0-2.0); EOSINOPHIL # 0.4 TH/MM3 (0-0.4); EOSINOPHIL % 2.8 % (0.0-4.0); HEMOGLOBIN 10.9 GM/DL (13.0-17.0); LYMPH % 6.6 % (9.0-44.0); LYMPHOCYTE # 0.9 TH/MM3 (1.0-4.8); MEAN CORPUSCULAR HEMOGLOBIN 27.1 PG (27.0-34.0); MONO % 5.8 % (0.0-8.0); MONOCYTE # 0.8 TH/MM3 (0-0.9); NEUT % 84.3 % (16.0-70.0); PLATELET COUNT 182 TH/MM3 (150-450); RED BLOOD COUNT 4.02 MIL/MM3 (4.50-5.90); WHITE BLOOD COUNT 14.2 TH/MM3 (4.0-11.0)
[2017-05-22 04:25] LABS: ALBUMIN 2.8 GM/DL (3.4-5.0); AST (GOT) 47 U/L (15-37); BICARBONATE 27.7 MEQ/L (21.0-32.0); BLOOD UREA NITROGEN 35 MG/DL (7-18); CHLORIDE 107 MEQ/L (98-107); CREATININE 1.46 MG/DL (0.60-1.30); GLOMERULAR FILTRATION RATE 51 ML/MIN (>89); GLUCOSE,RANDOM 132 MG/DL (74-106); SODIUM (NA) 142 MEQ/L (136-145)
[2017-05-22 04:27] LABS: ALT (GPT) 26 U/L (12-78)
[2017-05-22 04:28] LABS: ALKALINE PHOSPHATASE 80 U/L (45-117); TOTAL BILIRUBIN ADULT 0.7 MG/DL (0.2-1.0); TOTAL PROTEIN 6.9 GM/DL (6.4-8.2)
--- NOTE | 2017-05-22 05:17 | RADRPT ---
EXAM DATE/TIME: 05/22/2017 03:54 [facility] COMPARISON: CT THORAX W/O CONTRAST, May 21, 2017, 12:34. CHEST SINGLE AP, May 21, 2017, 3:18. INDICATIONS : Respiratory failure MEDICAL HISTORY : Congestive heart failure. Hypertension SURGICAL HISTORY : Cholecystectomy. ENCOUNTER: Subsequent ACUITY: 4 - 6 days PAIN SCORE: Non-responsive. LOCATION: Bilateral chest FINDINGS: Stable ETT, right IJ central line and NGT coursing beyond the GE junction with deformity from the david ge. Redemonstration of significant enlargement of cardiac silhouette with diffuse interstitial promin ence. Mild airspace disease at the lung bases bilaterally. Remainder of the exam is unchanged. CONCLUSION: 1. Stable tubes and lines, as above. 2. Cardiomegaly with positive fluid balance. 3. Stable mild bilateral lower lung zone airspace disease. 4. No significant interval change. Bright Manrique MD on May 22, 2017 at 5:13 Board Certified Radiologist. This report was verified electronically.
[2017-05-22] MEDS: SODIUM CHLOR 0.9% 1000 ML INJ 1,000 ML IV SCH (06:15)
[2017-05-22] MEDS: MEROPENEM INJ 1,000 MG in SODIUM CHLORIDE 0.9% INJ 100 ML IV SCH ×3 (06:56→22:30)
[2017-05-22] MEDS: DOCUSATE SODIUM 50 MG/SENNA 8.6 MG TAB PO SCH ×2 (09:17→20:20)
[2017-05-22] MEDS: FUROSEMIDE 40 MG/4 ML VIAL IV PUSH SCH (09:17)
[2017-05-22] MEDS: FAMOTIDINE 20 MG/2 ML VIAL IV PUSH SCH ×2 (09:17→20:21)
[2017-05-22] MEDS: ASPIRIN 81 MG CHEW TAB PO SCH (09:17)
[2017-05-22] MEDS: METOPROLOL TARTRATE 25 MG TAB PO SCH ×2 (09:18→20:20)
[2017-05-22] MEDS: TICAGRELOR 90 MG TAB PO SCH ×2 (09:18→20:30)
[2017-05-22] MEDS: SODIUM CHLORIDE 0.9% FLUSH 10 ML FLUSH IV FLUSH SCH ×2 (09:19→20:21)
[2017-05-22] MEDS: BENEPROTEIN POWDER 1 PACK G-TUBE SCH ×3 (09:21→18:00)
[2017-05-22] MEDS: CHLORHEXIDINE 0.12% (ORAL KIT) 15 ML CUP MT SCH ×2 (09:22→20:21)
[2017-05-22] MEDS: MIDAZOLAM HCL 2 MG/2 ML VIAL IV PUSH PRN ×2 (11:39→20:21)
[2017-05-22] MEDS ORDERED: FUROSEMIDE 40 MG/4 ML VIAL IV PUSH ONE (11:45)
[2017-05-22] MEDS: HEPARIN-D5W 25,000 U/250 ML 250 ML IV PRN (14:14)
[2017-05-22] MEDS ORDERED: POTASSIUM CHLOR 40 MEQ PREMIX 100 ML IV PRN ×4 (16:00→17:00)
[2017-05-22] MEDS ORDERED: MAGNESIUM SULFATE INJ 2 GM in SODIUM CHLORIDE 0.9% INJ 96 ML IV PRN ×2 (16:00→17:00)
[2017-05-22] MEDS ORDERED: MAGNESIUM OXIDE 400 MG TAB PO PRN ×2 (16:00→17:00)
[2017-05-22] MEDS ORDERED: POTASSIUM PHOSPHATE MONOBASIC 500 MG TAB PO PRN ×2 (16:00→17:00)
[2017-05-22] MEDS ORDERED: MAGNESIUM SULFATE INJ 4 GM in SODIUM CHLORIDE 0.9% INJ 92 ML IV PRN ×2 (16:00→17:00)
[2017-05-22] MEDS ORDERED: POTASSIUM CHLOR 20 MEQ PREMIX 100 ML IV PRN ×4 (16:00→17:00)
[2017-05-22] MEDS ORDERED: POTASSIUM PHOSPHATE INJ 30 MMOL in SODIUM CHLOR 0.9% 250 ML INJ 250 ML IV PRN ×2 (16:00→17:00)
[2017-05-22] MEDS ORDERED: SODIUM PHOSPHATE INJ 30 MMOL in SODIUM CHLOR 0.9% 250 ML INJ 240 ML IV PRN ×2 (16:00→17:00)
[2017-05-22] MEDS ORDERED: POTASSIUM PHOSPHATE MONOBASIC 500 MG TAB PO/TUBE PRN ×2 (16:00→17:00)
[2017-05-22] MEDS ORDERED: POTASSIUM CHLORIDE 25 MEQ EFFERVESCENT TAB PO PRN ×2 (16:00→17:00)
--- NOTE | 2017-05-22 17:09 | HHI.CCPN ---
Subjective Remarks/Hospital Course 51-year-old morbidly obese male with past history of atrial fibrillation with prior electrical cardioversion, chronic systolic heart failure , chronic neck and back pain, urinary incontinence, asthma/COPD, super morbid obesity who presents to [facility] emergency department after experiencing acute onset of shortness of breath. His is at bedside and states that the he was getting ready to go to bed and began walking and became short of breath and felt like he needed to sit up to breathe. When E VAC arrived he appeared cyanotic and they were unable to obtain sats by pulse ox. They administered albuterol neb, Solu-Medrol, etomidate, Ativan and attempted to intubate. Multiple attempts at endotracheal intubation were unsuccessful so they ultimately placed a Combitube at which point he vomited and went into PEA cardiac arrest. He was administered CPR and epinephrine 2 and had return of spontaneous circulation. He subsequently was in atrial fibrillation with RVR. Combitube was removed and he was reintubated by Dr. Anuja Wilson in the emergency department. She states airway was difficult with minimal mouth opening and that he was ultimately intubated with 4 Mac after multiple unsuccessful attempts with C-Mac. He was started on NTG drip due to hypertension and was started on cardizem drip for A fib RVR with rate 140s, given Lasix 80 mg IV. EKG then showed ST elevation in lead III and AVF and STEMI alert was called. He was subsequently hypoxic and hypercapneic on vent and RT initially tried on Bi-level but PaO2 was 51. Placed on PCV, sedated with propofol, fentanyl and administered paralytic and oxygenation improved adequately for transfer to quality control lab tech. He was then handed off to quality control lab tech team and underwent SUMI to OM1 per Dr. Iyer. Post cath he was off paralytic and sedation was held. He followed commands with all extremities and thus did not proceed with induced therapeutic hypothermia. 05/20: Remains intubated sedated. CXR shows persistent LLL infiltrate. UTI with ESBL E Coli. Cefepime DC'd and Ertapenem started. FiO2 45%, PEEP at 12. Start weaning. Currently rate controlled on Cardizem infusion. Nicardipine started for blood pressure control. Creat stable at 2.25 05/21: Patient remains critically ill with clinical improvement. FiO2 had to be increased to 85%, PEEP to 12. Chest x-ray shows pulmonary edema and left lower lobe infiltrate. I will get CT of the chest to evaluate infiltrate and assess for need for bronchoscopy. UO 2600 ml with Lasix. Patient was started on ertapenem yesterday for ESBL Escherichia coli-I were changed to meropenem to cover for Pseudomonas and also add Zyvox. Sputum Gram stain shows GPC 05/22: Remains intubated sedated critically ill requiring higher oxygen at 90%. I have increased inspiratory preceptor target tidal volume approximately 650- 700 for lung recruitment. UO adequate, CXR shows pulmonary vascular congestion. IV Lasix increase to 40 mg IV q8hr. Objective Vital Signs Date Time Temp Pulse Resp B/P (MAP) Pulse Ox O2 Delivery O2 Flow Rate FiO2 05/22/17 16:17 93 164/75 05/22/17 15:56 96 90 05/22/17 12:00 98.9 37 05/20/17 07:00 Mechanical Ventilator 05/18/17 22:42 15.00 Intake and Output 05/22/17 05/22/17 05/23/17 08:00 16:00 00:00 Intake Total 2663 ml 66 ml Output Total 1775 ml Balance 888 ml 66 ml Result Diagram: 05/22/17 0340 05/22/17 0340 Other Results Microbiology Date/Time Source Procedure Growth Status 05/20/17 16:17 Sputum Endotracheal Gram Stain - Final Complete 05/20/17 16:17 Sputum Culture - Final Beta Streptococcus Group G Complete Objective Remarks GENERAL: Morbidly obese male who is laying in bed critically ill SKIN: Cool, moist HEAD: Atraumatic. Normocephalic. EYES: Pupils 4 mm and reactive to 2 mm bilaterally. No scleral icterus. No injection or drainage. ENT: No nasal bleeding or discharge. Mucous membranes pink and moist. NECK: Trachea midline. Unable to appreciate JVD due to body habitus. CARDIOVASCULAR: Heart sounds distant. No murmur rub or gallop appreciated. A fib on monitor RESPIRATORY: Coarse bilateral breath sounds. Diminished at the bases. PC/AC PEEP increased to 12. FiO2 90% GASTROINTESTINAL: Abdomen protuberant, overall soft. Unable to appreciate tenderness, rebound. MUSCULOSKELETAL: Extremities without clubbing, cyanosis, or edema. No obvious deformities. NEUROLOGICAL: Remains heavily sedated, GRACIELA. Slight withdrawal to pain Urinary Catheter: Yes Assessment to: Continue A/P Problem List: (1) Cardiac arrest ICD Code: I46.9 - Cardiac arrest, cause unspecified Status: Acute (2) Difficult airway for intubation ICD Code: T88.4XXA - Failed or difficult intubation, initial encounter Status: Acute (3) Leukocytosis ICD Code: D72.829 - Elevated white blood cell count, unspecified Status: Acute (4) Aspiration into airway ICD Code: T17.908A - Unspecified foreign body in respiratory tract, part unspecified causing other injury, initial encounter Status: Acute (5) Respiratory failure with hypoxia and hypercapnia ICD Code: J96.91 - Respiratory failure, unspecified with hypoxia; J96.92 - Respiratory failure, unspecified with hypercapnia Status: Acute (6) Morbid obesity with BMI of 50.0-59.9, adult ICD Code: E66.01 - Morbid (severe) obesity due to excess calories; Z68.43 - Body mass index (BMI) 50-59.9 , adult Status: Chronic (7) JAIMEE (acute kidney injury) ICD Code: N17.9 - Acute kidney failure, unspecified Status: Acute (8) Atrial fibrillation ICD Code: I48.91 - Unspecified atrial fibrillation Status: Chronic (9) STEMI (ST elevation myocardial infarction) ICD Code: I21.3 - ST elevation (STEMI) myocardial infarction of unspecified site Status: Acute (10) Pulmonary edema ICD Code: J81.1 - Chronic pulmonary edema Status: Acute (11) Encephalopathy acute ICD Code: G93.40 - Encephalopathy, unspecified (12) Lactic acid acidosis ICD Code: E87.2 - Acidosis (13) VENANCIO (obstructive sleep apnea) ICD Code: G47.33 - Obstructive sleep apnea (adult) (pediatric) Status: Chronic (14) Systolic heart failure, chronic ICD Code: I50.22 - Chronic systolic (congestive) heart failure Status: Chronic (15) Hypertriglyceridemia ICD Code: E78.1 - Pure hyperglyceridemia Assessment and Plan NEURO: Acute encephalopathy upon arrival secondary to hypercapnia Peripheral neuropathy Depression Remains heavily sedated and intubated. Unable to do sedation vacation at this time due to severe hypoxemia Dr. Tan Performed sedation vacation and patient followed commands-did not meet criteria for induced therapeutic hypothermia. Hold gabapentin 1200 mg by mouth twice a day for now. Hold duloxetine/Lexapro Follow-up urine drug screen-pending at this time RESP: Acute hypercapnic and hypoxemic respiratory failure ARDS Aspiration pneumonia Pulmonary edema Difficult airway prior Tobacco abuse Obstructive sleep apnea Multiple E VAC attempts at airway unsuccessful. Ultimately was able to intubate with 4 Mac (multiple attempts apparently). There was difficulty with mouth opening. Profound hypoxemia upon arrival. Adjusted ventilator to pressure control ventilation with inspiratory pressure 30/I time 1.4/PEEP 12/FiO2 100%. Currently FIo2 at 45, PEEP 12. Currently on PCV PEEP 12, FiO2 90% insp p 22, inp T 1.3 sec. Insp pressure increased to 26. CT chest -basilar infiltrates ABX Meropenem and Zyvox DuoNeb every 6 hours. Albuterol every 2 hours as needed. CV: STEMI Pulmonary edema PEA cardiac arrest which was likely respiratory arrest due to hypoxemia and difficult airway Atrial fibrillation with prior electrical cardioversion Acute on Chronic systolic heart failure Hypertension Hypertriglyceridemia Lactic acidemia Taken urgently to quality control lab tech where he underwent drug-eluting stent to OM1 by Dr. Iyer 05/19/17 Echo 03/26/17ejection fraction 40-45% , Mild TR, mild LVH. Pulmonary artery pressure 29.9. Atorvastatin 80 daily at bedtime per Dr. Iyer Aspirin 81 daily, Brilinta 90 mg by mouth twice a day Metoprolol 50 g by mouth twice a day per Dr. Iyer. Increase to 50 q8 Continue cardizem for A fib rate control Lasix 40 mg IV q12, increase to q8 Trend lactic acid IV heparin due to persistent A. fib GI: Super morbid obesity OG tube to low intermittent wall suction Tube feeds with Glucerna Bowel regimen FEN/RENAL: Acute kidney injury Gandhi in place. Monitor intake and output. Monitor electrolytes. Increase Lasix to 40 mg every 8 ID: ESBL Ecoli UTI Aspiration pneumonia predominantly left lower lobe ABX Meropenem and Zyvox Urine cx ESBL E Coli. Sputum beta strep HEME: No acute hematologic issues. Antiplatelet and anticoagulant therapy per cardiology IV heparin ENDO: Acute hyperglycemia without known history of diabetes. Insulin drip algorithm #1 PROPH: SCDs for DVT prophylaxis. IV heparin. Received heparin bolus in quality control lab tech. Famotidine for stress ulcer prophylaxis. ACCESS: PIV providing adequate access at this time. Place central venous line if needed. Patient's was updated at bedside. Patient is full code. Critical care time 40 minutes exclusive of separately billable procedures. Patient at this time remains critically ill with guarded prognosis. He has multiorgan failure andhypoxemia does not improve and in fact worsening with developing ARDS. In addition patient has acute STEMI, systolic CHF exacerbation and renal failure along with sepsis Problem Qualifiers (1) STEMI (ST elevation myocardial infarction): Qualified Codes: I21.3 - ST elevation (STEMI) myocardial infarction of unspecified site Julia Zavaleta MD May 22, 2017 17:09
[2017-05-22 20:13] LABS: AUTOMATED NEUTROPHIL # 12.5 TH/MM3 (1.8-7.7); BASOPHIL % 0.2 % (0.0-2.0); EOSINOPHIL # 0.2 TH/MM3 (0-0.4); EOSINOPHIL % 1.5 % (0.0-4.0); HEMATOCRIT 33.8 % (39.0-51.0); LYMPHOCYTE # 0.6 TH/MM3 (1.0-4.8); MEAN CORPUSCULAR HEMOGLOBIN 26.6 PG (27.0-34.0); MEAN CORPUSCULAR HGB CONC 32.4 % (32.0-36.0); MEAN PLATELET VOLUME 9.2 FL (7.0-11.0); MONO % 7.5 % (0.0-8.0); MONOCYTE # 1.1 TH/MM3 (0-0.9); NEUT % 86.8 % (16.0-70.0); PLATELET COUNT 180 TH/MM3 (150-450); RED BLOOD COUNT 4.12 MIL/MM3 (4.50-5.90); WHITE BLOOD COUNT 14.3 TH/MM3 (4.0-11.0)
[2017-05-22] MEDS: ATORVASTATIN 80 MG TAB PO SCH (20:20)
[2017-05-22] MEDS: POTASSIUM CHLORIDE 25 MEQ EFFERVESCENT TAB PO SCH (20:20)
[2017-05-22 20:52] LABS: MAGNESIUM 2.1 MG/DL (1.5-2.5); PHOSPHORUS 2.6 MG/DL (2.5-4.9)
[2017-05-23] VITALS (45 sets, daily range): BP systolic 100–167; BP diastolic 53–84; PULSE 66–118; RESP 16–34; TEMP 98.7–99.8; O2SAT 88–99
[2017-05-23] MEDS: PROPOFOL 1000 MG/100 ML INJ 100 ML IV PRN ×7 (00:15→09:14)
[2017-05-23] MEDS: niCARdipine INJ 25 MG in SODIUM CHLOR 0.9% 250 ML INJ 240 ML IV PRN ×7 (00:18→11:05)
[2017-05-23] MEDS: FUROSEMIDE 40 MG/4 ML VIAL IV PUSH SCH ×4 (00:18→19:51)
[2017-05-23] MEDS: LINEZOLID 600 MG PREMIX 300 ML IV SCH ×2 (01:48→14:13)
[2017-05-23] MEDS: RESP: ALBUTEROL 2.5 MG/IPRATROPIUM 0.5 MG NEB (SCH) INH ×4 (04:17→21:10)
[2017-05-23 04:23] LABS: ALBUMIN 2.5 GM/DL (3.4-5.0); ALT (GPT) 21 U/L (12-78); AST (GOT) 35 U/L (15-37); BICARBONATE 26.5 MEQ/L (21.0-32.0); BLOOD UREA NITROGEN 34 MG/DL (7-18); CALCIUM 7.9 MG/DL (8.5-10.1); CHLORIDE 108 MEQ/L (98-107); CREATININE 1.56 MG/DL (0.60-1.30); GLOMERULAR FILTRATION RATE 47 ML/MIN (>89); GLUCOSE,RANDOM 142 MG/DL (74-106); MAGNESIUM 2.1 MG/DL (1.5-2.5); SODIUM (NA) 143 MEQ/L (136-145)
[2017-05-23 04:25] LABS: ALKALINE PHOSPHATASE 92 U/L (45-117); TOTAL BILIRUBIN ADULT 0.7 MG/DL (0.2-1.0)
[2017-05-23] MEDS: DILTIAZEM HCL 60 MG TAB PO SCH ×4 (04:35→19:52)
[2017-05-23] MEDS: CHLORHEXIDINE GLUCONATE 2 % 1 PACK (2 CLOTHS) TOP SCH (04:36)
--- NOTE | 2017-05-23 05:14 | RADRPT ---
EXAM DATE/TIME: 05/23/2017 03:34 [facility] COMPARISON: CHEST SINGLE AP, May 22, 2017, 3:54. INDICATIONS : Shortness of breath, possible pulmonary disease. MEDICAL HISTORY : Congestive heart failure. Hypertension SURGICAL HISTORY : Cholecystectomy. ENCOUNTER: Subsequent ACUITY: 4 - 6 days PAIN SCORE: Non-responsive. LOCATION: Bilateral chest FINDINGS: Stable ETT, right IJ central line and NGT coursing beyond the GE junction. Persistent significant enl argement of the cardiac silhouette. Improved aeration in the right lower lung zone. Persistent left l ower lobe airspace consolidation. Remainder of exam is unchanged. CONCLUSION: 1. Stable tubes and lines, as above. 2. Persistent prominent cardiomegaly with positive fluid balance. 3. Improved aeration in the right lower lung zone. 4. Continued airspace consolidation in the left lower lung zone. Bright Manrique MD on May 23, 2017 at 5:11 Board Certified Radiologist. This report was verified electronically.
[2017-05-23] MEDS: CHLORHEXIDINE 0.12% (ORAL KIT) 15 ML CUP MT SCH ×2 (07:34→19:55)
[2017-05-23] MEDS: MEROPENEM INJ 1,000 MG in SODIUM CHLORIDE 0.9% INJ 100 ML IV SCH ×3 (07:39→23:17)
[2017-05-23] MEDS: ASPIRIN 81 MG CHEW TAB PO SCH (08:32)
[2017-05-23] MEDS: TICAGRELOR 90 MG TAB PO SCH ×2 (08:32→19:52)
[2017-05-23] MEDS: DOCUSATE SODIUM 50 MG/SENNA 8.6 MG TAB PO SCH ×2 (08:32→19:53)
[2017-05-23] MEDS: METOPROLOL TARTRATE 25 MG TAB PO SCH ×2 (08:32→16:13)
[2017-05-23] MEDS: POTASSIUM CHLORIDE 25 MEQ EFFERVESCENT TAB PO SCH ×2 (08:33→19:52)
[2017-05-23] MEDS: BENEPROTEIN POWDER 1 PACK G-TUBE SCH ×3 (08:33→17:14)
[2017-05-23] MEDS: SODIUM CHLORIDE 0.9% FLUSH 10 ML FLUSH IV FLUSH SCH ×2 (08:34→19:53)
[2017-05-23] MEDS: HEPARIN-D5W 25,000 U/250 ML 250 ML IV PRN ×2 (08:48→23:18)
[2017-05-23] MEDS: FAMOTIDINE 20 MG/2 ML VIAL IV PUSH SCH ×2 (09:14→19:53)
[2017-05-23] MEDS ORDERED: PROPOFOL 1000 MG/100 ML INJ 100 ML IV PRN (09:30)
[2017-05-23] MEDS: PROPOFOL 1000 MG/100 ML IV PRN ×9 (11:04→22:30)
[2017-05-23] MEDS ORDERED: cloNIDine HCL 0.1 MG TAB PO PRN (11:30)
[2017-05-23] MEDS ORDERED: hydrALAZINE HCL 20 MG/ML VIAL IV PUSH PRN (11:30)
[2017-05-23] MEDS ORDERED: hydrALAZINE HCL 100 MG TAB PO ONE (11:45)
--- NOTE | 2017-05-23 12:06 | HHI.CCPN ---
Subjective Remarks/Hospital Course 51-year-old morbidly obese male with past history of atrial fibrillation with prior electrical cardioversion, chronic systolic heart failure , chronic neck and back pain, urinary incontinence, asthma/COPD, super morbid obesity who presents to [facility] emergency department after experiencing acute onset of shortness of breath. His is at bedside and states that the he was getting ready to go to bed and began walking and became short of breath and felt like he needed to sit up to breathe. When E VAC arrived he appeared cyanotic and they were unable to obtain sats by pulse ox. They administered albuterol neb, Solu-Medrol, etomidate, Ativan and attempted to intubate. Multiple attempts at endotracheal intubation were unsuccessful so they ultimately placed a Combitube at which point he vomited and went into PEA cardiac arrest. He was administered CPR and epinephrine 2 and had return of spontaneous circulation. He subsequently was in atrial fibrillation with RVR. Combitube was removed and he was reintubated by Dr. Anuja Wilson in the emergency department. She states airway was difficult with minimal mouth opening and that he was ultimately intubated with 4 Mac after multiple unsuccessful attempts with C-Mac. He was started on NTG drip due to hypertension and was started on cardizem drip for A fib RVR with rate 140s, given Lasix 80 mg IV. EKG then showed ST elevation in lead III and AVF and STEMI alert was called. He was subsequently hypoxic and hypercapneic on vent and RT initially tried on Bi-level but PaO2 was 51. Placed on PCV, sedated with propofol, fentanyl and administered paralytic and oxygenation improved adequately for transfer to lab scientist. He was then handed off to lab scientist team and underwent SUMI to OM1 per Dr. Iyer. Post cath he was off paralytic and sedation was held. He followed commands with all extremities and thus did not proceed with induced therapeutic hypothermia. 05/20: Remains intubated sedated. CXR shows persistent LLL infiltrate. UTI with ESBL E Coli. Cefepime DC'd and Ertapenem started. FiO2 45%, PEEP at 12. Start weaning. Currently rate controlled on Cardizem infusion. Nicardipine started for blood pressure control. Creat stable at 2.25 05/21: Patient remains critically ill with clinical improvement. FiO2 had to be increased to 85%, PEEP to 12. Chest x-ray shows pulmonary edema and left lower lobe infiltrate. I will get CT of the chest to evaluate infiltrate and assess for need for bronchoscopy. UO 2600 ml with Lasix. Patient was started on ertapenem yesterday for ESBL Escherichia coli-I were changed to meropenem to cover for Pseudomonas and also add Zyvox. Sputum Gram stain shows GPC 05/22: Remains intubated sedated critically ill requiring higher oxygen at 90%. I have increased inspiratory preceptor target tidal volume approximately 650- 700 for lung recruitment. UO adequate, CXR shows pulmonary vascular congestion. IV Lasix increase to 40 mg IV q8hr. 05/23/17: Remains hypoxemic FiO2 at 80% PEEP remains at 12. Chest x-ray still showing evidence of volume overload. Minimize IV infusions, increase Lasix to every 6 hours. Objective Vital Signs Date Time Temp Pulse Resp B/P (MAP) Pulse Ox O2 Delivery O2 Flow Rate FiO2 05/23/17 11:05 72 133/75 05/23/17 09:29 97 80 05/23/17 08:00 98.7 16 05/20/17 07:00 Mechanical Ventilator Intake and Output 05/23/17 05/23/17 05/24/17 08:00 16:00 00:00 Intake Total 4837 ml 400 ml Output Total 1000 ml Balance 3837 ml 400 ml Result Diagram: 05/22/17 1745 05/23/17 0330 Other Results Microbiology Date/Time Source Procedure Growth Status 05/20/17 16:17 Sputum Endotracheal Gram Stain - Final Complete 05/20/17 16:17 Sputum Culture - Final Beta Streptococcus Group G Complete Objective Remarks GENERAL: Morbidly obese male who is laying in bed critically ill SKIN: Cool, moist HEAD: Atraumatic. Normocephalic. EYES: Pupils 4 mm and reactive to 2 mm bilaterally. No scleral icterus. No injection or drainage. ENT: No nasal bleeding or discharge. Mucous membranes pink and moist. NECK: Trachea midline. Unable to appreciate JVD due to body habitus. CARDIOVASCULAR: Heart sounds distant. No murmur rub or gallop appreciated. A fib on monitor, rate controlled RESPIRATORY: Coarse bilateral breath sounds. Diminished at the bases. PC/AC PEEP 12. FiO2 80% GASTROINTESTINAL: Abdomen protuberant, overall soft. Unable to appreciate tenderness, rebound. MUSCULOSKELETAL: Extremities without clubbing, cyanosis, or edema. No obvious deformities. NEUROLOGICAL: Remains heavily sedated, GRACIELA. Slight withdrawal to pain A/P Problem List: (1) Cardiac arrest ICD Code: I46.9 - Cardiac arrest, cause unspecified Status: Acute (2) Difficult airway for intubation ICD Code: T88.4XXA - Failed or difficult intubation, initial encounter Status: Acute (3) Leukocytosis ICD Code: D72.829 - Elevated white blood cell count, unspecified Status: Acute (4) Aspiration into airway ICD Code: T17.908A - Unspecified foreign body in respiratory tract, part unspecified causing other injury, initial encounter Status: Acute (5) Respiratory failure with hypoxia and hypercapnia ICD Code: J96.91 - Respiratory failure, unspecified with hypoxia; J96.92 - Respiratory failure, unspecified with hypercapnia Status: Acute (6) Morbid obesity with BMI of 50.0-59.9, adult ICD Code: E66.01 - Morbid (severe) obesity due to excess calories; Z68.43 - Body mass index (BMI) 50-59.9 , adult Status: Chronic (7) JAIMEE (acute kidney injury) ICD Code: N17.9 - Acute kidney failure, unspecified Status: Acute (8) Atrial fibrillation ICD Code: I48.91 - Unspecified atrial fibrillation Status: Chronic (9) STEMI (ST elevation myocardial infarction) ICD Code: I21.3 - ST elevation (STEMI) myocardial infarction of unspecified site Status: Acute (10) Pulmonary edema ICD Code: J81.1 - Chronic pulmonary edema Status: Acute (11) Encephalopathy acute ICD Code: G93.40 - Encephalopathy, unspecified (12) Lactic acid acidosis ICD Code: E87.2 - Acidosis (13) VENANCIO (obstructive sleep apnea) ICD Code: G47.33 - Obstructive sleep apnea (adult) (pediatric) Status: Chronic (14) Systolic heart failure, chronic ICD Code: I50.22 - Chronic systolic (congestive) heart failure Status: Chronic (15) Hypertriglyceridemia ICD Code: E78.1 - Pure hyperglyceridemia Assessment and Plan NEURO: Acute encephalopathy upon arrival secondary to hypercapnia Peripheral neuropathy Depression Remains heavily sedated and intubated. Unable to do sedation vacation at this time due to severe hypoxemia Dr. Tan Performed sedation vacation and patient followed commands-did not meet criteria for induced therapeutic hypothermia. Hold gabapentin 1200 mg by mouth twice a day for now. Hold duloxetine/Lexapro Urine drug screen-positive only for gabapentin RESP: Acute hypercapnic and hypoxemic respiratory failure ARDS Aspiration pneumonia Pulmonary edema Difficult airway prior Tobacco abuse Obstructive sleep apnea Multiple E VAC attempts at airway unsuccessful. Ultimately was able to intubate with 4 Mac (multiple attempts apparently). There was difficulty with mouth opening. Profound hypoxemia upon arrival. Adjusted ventilator to pressure control ventilation with inspiratory pressure 30/I time 1.4/PEEP 12/FiO2 100%. Currently FIo2 at 45, PEEP 12. Currently on PCV PEEP 12, FiO2 90% insp p 26, inp T 1.3 sec. Insp pressure increased to 26. CT chest -basilar infiltrates. ABX Meropenem and Zyvox DuoNeb every 6 hours. Albuterol every 2 hours as needed. CV: STEMI Pulmonary edema PEA cardiac arrest which was likely respiratory arrest due to hypoxemia and difficult airway Atrial fibrillation with prior electrical cardioversion Acute on Chronic systolic heart failure Hypertension Hypertriglyceridemia Lactic acidemia Taken urgently to lab scientist where he underwent drug-eluting stent to OM1 by Dr. Iyer 05/19/17 Echo 03/26/17ejection fraction 40-45% , Mild TR, mild LVH. Pulmonary artery pressure 29.9. Atorvastatin 80 daily at bedtime per Dr. Iyer Aspirin 81 daily, Brilinta 90 mg by mouth twice a day Metoprolol 50 g by mouth twice a day per Dr. Iyer. Increase to 50 q8. Add hydralazine 100 mg every 8 hours Continue cardizem for A fib rate control 60 mg q6. Lasix 40 mg IV q8, increase to q6 IV heparin due to persistent A. fib GI: Super morbid obesity Tube feeds with Glucerna Bowel regimen FEN/RENAL: Acute kidney injury Gandhi in place. Monitor intake and output. Monitor electrolytes. Increase Lasix to 40 mg every 6 ID: ESBL Ecoli UTI Aspiration pneumonia predominantly left lower lobe ABX Meropenem and Zyvox Urine cx ESBL E Coli. Sputum beta strep HEME: No acute hematologic issues. Antiplatelet and anticoagulant therapy per cardiology IV heparin ENDO: Acute hyperglycemia without known history of diabetes. Insulin PROPH: SCDs for DVT prophylaxis. IV heparin. Received heparin bolus in lab scientist. Famotidine for stress ulcer prophylaxis. ACCESS: PIV providing adequate access at this time. Place central venous line if needed. Patient's was updated at bedside. Patient is full code. Critical care time 35 minutes exclusive of separately billable procedures. Patient at this time remains critically ill with guarded prognosis. He has multiorgan failure and hypoxemia has not improved and with developing ARDS. In addition patient has acute STEMI, systolic CHF exacerbation and renal failure along with sepsis Problem Qualifiers (1) STEMI (ST elevation myocardial infarction): Qualified Codes: I21.3 - ST elevation (STEMI) myocardial infarction of unspecified site Julia Zavaleta MD May 23, 2017 12:06
--- NOTE | 2017-05-23 12:06 | RADRPT ---
EXAM DATE/TIME: 05/23/2017 11:23 [facility] COMPARISON: CHEST SINGLE AP, May 23, 2017, 3:34. INDICATIONS : Shortness of breath. MEDICAL HISTORY : Hypertension. Cardiovascular disease. SURGICAL HISTORY : Cholecystectomy. ENCOUNTER: Subsequent ACUITY: 4 - 6 days PAIN SCORE: Non-responsive. LOCATION: Bilateral chest FINDINGS: Cardiomegaly has not changed. Left basilar opacity is present may be due to a combination of consolid ation and or pleural effusion. Diffuse pulmonary edema seen possibly slightly worse. CONCLUSION: Left basilar opacity is present may be due to a combination of consolidation and or pleural effusion and possible slight worsening pulmonary edema. Mary Torres MD on May 23, 2017 at 12:03 Board Certified Radiologist. This report was verified electronically.
[2017-05-23] MEDS: ATORVASTATIN 80 MG TAB PO SCH (19:52)
[2017-05-23] MEDS: hydrALAZINE HCL 100 MG TAB PO SCH (19:52)
[2017-05-24] VITALS (16 sets, daily range): BP systolic 106–149; BP diastolic 64–75; PULSE 76–114; RESP 16–48; TEMP 98.9; O2SAT 92–99
[2017-05-24] MEDS: METOPROLOL TARTRATE 25 MG TAB PO SCH ×3 (00:21→15:15)
[2017-05-24] MEDS: PROPOFOL 1000 MG/100 ML IV PRN ×12 (00:21→23:05)
[2017-05-24] MEDS: LINEZOLID 600 MG PREMIX 300 ML IV SCH ×2 (01:45→13:51)
[2017-05-24] MEDS: FUROSEMIDE 40 MG/4 ML VIAL IV PUSH SCH ×4 (01:46→19:32)
[2017-05-24] MEDS: CHLORHEXIDINE GLUCONATE 2 % 1 PACK (2 CLOTHS) TOP SCH (04:00)
[2017-05-24] MEDS: RESP: ALBUTEROL 2.5 MG/IPRATROPIUM 0.5 MG NEB (SCH) INH ×3 (04:08→20:02)
[2017-05-24] MEDS: DILTIAZEM HCL 60 MG TAB PO SCH ×4 (04:43→19:33)
[2017-05-24] MEDS: MEROPENEM INJ 1,000 MG in SODIUM CHLORIDE 0.9% INJ 100 ML IV SCH ×3 (05:16→23:06)
[2017-05-24 06:35] LABS: ALBUMIN 2.2 GM/DL (3.4-5.0); AST (GOT) 62 U/L (15-37); CHLORIDE 107 MEQ/L (98-107); CREATININE 1.69 MG/DL (0.60-1.30); GLOMERULAR FILTRATION RATE 43 ML/MIN (>89); GLUCOSE,RANDOM 115 MG/DL (74-106); SODIUM (NA) 140 MEQ/L (136-145)
[2017-05-24 06:40] LABS: ALKALINE PHOSPHATASE 110 U/L (45-117); ALT (GPT) 28 U/L (12-78); BICARBONATE 24.9 MEQ/L (21.0-32.0); BLOOD UREA NITROGEN 38 MG/DL (7-18); MAGNESIUM 2.1 MG/DL (1.5-2.5); TOTAL BILIRUBIN ADULT 0.8 MG/DL (0.2-1.0)
[2017-05-24 06:49] LABS: AUTOMATED NEUTROPHIL # 14.4 TH/MM3 (1.8-7.7); BASOPHIL # 0.1 TH/MM3 (0-0.2); BASOPHIL % 0.4 % (0.0-2.0); EOSINOPHIL # 0.5 TH/MM3 (0-0.4); EOSINOPHIL % 3.1 % (0.0-4.0); HEMATOCRIT 32.5 % (39.0-51.0); HEMOGLOBIN 10.8 GM/DL (13.0-17.0); LYMPH % 3.8 % (9.0-44.0); LYMPHOCYTE # 0.7 TH/MM3 (1.0-4.8); MEAN CELL VOLUME 81.8 FL (80.0-100.0); MEAN CORPUSCULAR HEMOGLOBIN 27.2 PG (27.0-34.0); MEAN CORPUSCULAR HGB CONC 33.2 % (32.0-36.0); MEAN PLATELET VOLUME 9.4 FL (7.0-11.0); MONO % 8.7 % (0.0-8.0); MONOCYTE # 1.5 TH/MM3 (0-0.9); PLATELET COUNT 194 TH/MM3 (150-450); RED BLOOD COUNT 3.98 MIL/MM3 (4.50-5.90); RED CELL DISTRIBUTION WIDTH 16.2 % (11.6-17.2); WHITE BLOOD COUNT 17.2 TH/MM3 (4.0-11.0)
[2017-05-24] MEDS: CHLORHEXIDINE 0.12% (ORAL KIT) 15 ML CUP MT SCH ×2 (08:00→19:34)
[2017-05-24] MEDS: POTASSIUM CHLORIDE 25 MEQ EFFERVESCENT TAB PO SCH ×2 (08:06→19:33)
[2017-05-24] MEDS: hydrALAZINE HCL 100 MG TAB PO SCH ×2 (08:07→19:32)
[2017-05-24] MEDS: DOCUSATE SODIUM 50 MG/SENNA 8.6 MG TAB PO SCH ×2 (08:07→19:32)
[2017-05-24] MEDS: ASPIRIN 81 MG CHEW TAB PO SCH (08:07)
[2017-05-24] MEDS: TICAGRELOR 90 MG TAB PO SCH ×2 (08:07→19:32)
[2017-05-24] MEDS: BENEPROTEIN POWDER 1 PACK G-TUBE SCH ×3 (08:08→16:43)
[2017-05-24] MEDS: SODIUM CHLORIDE 0.9% FLUSH 10 ML FLUSH IV FLUSH SCH ×2 (08:08→19:33)
[2017-05-24] MEDS: FAMOTIDINE 20 MG/2 ML VIAL IV PUSH SCH ×2 (08:08→19:32)
[2017-05-24] MEDS: HEPARIN-D5W 25,000 U/250 ML 250 ML IV PRN (15:16)
--- NOTE | 2017-05-24 15:47 | HHI.CCPN ---
Subjective Remarks/Hospital Course 51-year-old morbidly obese male with past history of atrial fibrillation with prior electrical cardioversion, chronic systolic heart failure , chronic neck and back pain, urinary incontinence, asthma/COPD, super morbid obesity who presents to [facility] emergency department after experiencing acute onset of shortness of breath. His is at bedside and states that the he was getting ready to go to bed and began walking and became short of breath and felt like he needed to sit up to breathe. When E VAC arrived he appeared cyanotic and they were unable to obtain sats by pulse ox. They administered albuterol neb, Solu-Medrol, etomidate, Ativan and attempted to intubate. Multiple attempts at endotracheal intubation were unsuccessful so they ultimately placed a Combitube at which point he vomited and went into PEA cardiac arrest. He was administered CPR and epinephrine 2 and had return of spontaneous circulation. He subsequently was in atrial fibrillation with RVR. Combitube was removed and he was reintubated by Dr. Anuja Wilson in the emergency department. She states airway was difficult with minimal mouth opening and that he was ultimately intubated with 4 Mac after multiple unsuccessful attempts with C-Mac. He was started on NTG drip due to hypertension and was started on cardizem drip for A fib RVR with rate 140s, given Lasix 80 mg IV. EKG then showed ST elevation in lead III and AVF and STEMI alert was called. He was subsequently hypoxic and hypercapneic on vent and RT initially tried on Bi-level but PaO2 was 51. Placed on PCV, sedated with propofol, fentanyl and administered paralytic and oxygenation improved adequately for transfer to lab rn. He was then handed off to lab rn team and underwent SUMI to OM1 per Dr. Iyer. Post cath he was off paralytic and sedation was held. He followed commands with all extremities and thus did not proceed with induced therapeutic hypothermia. 05/20: Remains intubated sedated. CXR shows persistent LLL infiltrate. UTI with ESBL E Coli. Cefepime DC'd and Ertapenem started. FiO2 45%, PEEP at 12. Start weaning. Currently rate controlled on Cardizem infusion. Nicardipine started for blood pressure control. Creat stable at 2.25 05/21: Patient remains critically ill with clinical improvement. FiO2 had to be increased to 85%, PEEP to 12. Chest x-ray shows pulmonary edema and left lower lobe infiltrate. I will get CT of the chest to evaluate infiltrate and assess for need for bronchoscopy. UO 2600 ml with Lasix. Patient was started on ertapenem yesterday for ESBL Escherichia coli-I were changed to meropenem to cover for Pseudomonas and also add Zyvox. Sputum Gram stain shows GPC 05/22: Remains intubated sedated critically ill requiring higher oxygen at 90%. I have increased inspiratory preceptor target tidal volume approximately 650- 700 for lung recruitment. UO adequate, CXR shows pulmonary vascular congestion. IV Lasix increase to 40 mg IV q8hr. 05/23/17: Remains hypoxemic FiO2 at 80% PEEP remains at 12. Chest x-ray still showing evidence of volume overload. Minimize IV infusions, increase Lasix to every 6 hours. 05/24/17: Episode of desaturation requiring oxygen increased to 100%. Currently weaned to 90%. Repeat sputum culture. I have increased PEEP to 14. UO improved with increased Lasix Objective Vital Signs Date Time Temp Pulse Resp B/P (MAP) Pulse Ox O2 Delivery O2 Flow Rate FiO2 05/24/17 14:00 97 05/24/17 12:00 95 05/24/17 12:00 98.6 36 106/75 (85) 96 05/20/17 07:00 Mechanical Ventilator Intake and Output 05/24/17 05/24/17 05/25/17 08:00 16:00 00:00 Intake Total 2030 ml 400 ml Output Total 1350 ml Balance 680 ml 400 ml Result Diagram: 05/24/17 0530 05/24/17 0530 Objective Remarks GENERAL: Morbidly obese male who is laying in bed critically ill HEAD: Atraumatic. Normocephalic. EYES: Pupils 4 mm and reactive to 2 mm bilaterally. No scleral icterus. No injection or drainage. ENT: No nasal bleeding or discharge. Mucous membranes pink and moist. NECK: Trachea midline. Unable to appreciate JVD due to body habitus. CARDIOVASCULAR: Heart sounds distant. No murmur rub or gallop appreciated. A fib on monitor, rate controlled RESPIRATORY: Coarse bilateral breath sounds. Diminished at the bases. PC/AC PEEP 14. FiO2 90% GASTROINTESTINAL: Abdomen protuberant, overall soft. Unable to appreciate tenderness, rebound. MUSCULOSKELETAL: Extremities without clubbing, cyanosis, or edema. No obvious deformities. NEUROLOGICAL: Remains heavily sedated, GRACIELA. Slight withdrawal to pain A/P Problem List: (1) Cardiac arrest ICD Code: I46.9 - Cardiac arrest, cause unspecified Status: Acute (2) Difficult airway for intubation ICD Code: T88.4XXA - Failed or difficult intubation, initial encounter Status: Acute (3) Leukocytosis ICD Code: D72.829 - Elevated white blood cell count, unspecified Status: Acute (4) Aspiration into airway ICD Code: T17.908A - Unspecified foreign body in respiratory tract, part unspecified causing other injury, initial encounter Status: Acute (5) Respiratory failure with hypoxia and hypercapnia ICD Code: J96.91 - Respiratory failure, unspecified with hypoxia; J96.92 - Respiratory failure, unspecified with hypercapnia Status: Acute (6) Morbid obesity with BMI of 50.0-59.9, adult ICD Code: E66.01 - Morbid (severe) obesity due to excess calories; Z68.43 - Body mass index (BMI) 50-59.9 , adult Status: Chronic (7) JAIMEE (acute kidney injury) ICD Code: N17.9 - Acute kidney failure, unspecified Status: Acute (8) Atrial fibrillation ICD Code: I48.91 - Unspecified atrial fibrillation Status: Chronic (9) STEMI (ST elevation myocardial infarction) ICD Code: I21.3 - ST elevation (STEMI) myocardial infarction of unspecified site Status: Acute (10) Pulmonary edema ICD Code: J81.1 - Chronic pulmonary edema Status: Acute (11) Encephalopathy acute ICD Code: G93.40 - Encephalopathy, unspecified (12) Lactic acid acidosis ICD Code: E87.2 - Acidosis (13) VENANCIO (obstructive sleep apnea) ICD Code: G47.33 - Obstructive sleep apnea (adult) (pediatric) Status: Chronic (14) Systolic heart failure, chronic ICD Code: I50.22 - Chronic systolic (congestive) heart failure Status: Chronic (15) Hypertriglyceridemia ICD Code: E78.1 - Pure hyperglyceridemia Assessment and Plan NEURO: Acute encephalopathy upon arrival secondary to hypercapnia Peripheral neuropathy Depression Remains heavily sedated and intubated. Unable to do sedation vacation at this time due to severe hypoxemia Dr. Tan Performed sedation vacation and patient followed commands-did not meet criteria for induced therapeutic hypothermia. Hold gabapentin 1200 mg by mouth twice a day for now. Hold duloxetine/Lexapro Urine drug screen-positive only for gabapentin RESP: Acute hypercapnic and hypoxemic respiratory failure ARDS Aspiration pneumonia Pulmonary edema Difficult airway prior Tobacco abuse Obstructive sleep apnea Multiple E VAC attempts at airway unsuccessful. Ultimately was able to intubate with 4 Mac (multiple attempts apparently). There was difficulty with mouth opening. Profound hypoxemia upon arrival. Adjusted ventilator to pressure control ventilation with inspiratory pressure 30/I time 1.4/PEEP 12/FiO2 100%. Currently FIo2 at 45, PEEP 12. Currently on PCV PEEP 12, FiO2 90% insp p 26, inp T 1.3 sec. increase PEEP to 14. Consider bronchoscopy if not improving in [address] chest -basilar infiltrates. ABX Meropenem and Zyvox DuoNeb every 6 hours. Albuterol every 2 hours as needed. CV: STEMI Pulmonary edema PEA cardiac arrest which was likely respiratory arrest due to hypoxemia and difficult airway Atrial fibrillation with prior electrical cardioversion Acute on Chronic systolic heart failure Hypertension Hypertriglyceridemia Lactic acidemia Taken urgently to lab rn where he underwent drug-eluting stent to OM1 by Dr. Iyer 05/19/17 Echo 03/26/17ejection fraction 40-45% , Mild TR, mild LVH. Pulmonary artery pressure 29.9. Atorvastatin 80 daily at bedtime per Dr. Iyer Aspirin 81 daily, Brilinta 90 mg by mouth twice a day Metoprolol 50 g by mouth twice a day per Dr. Iyer. Increase to 50 q8. Add hydralazine 100 mg every 8 hours Continue Cardizem for A fib rate control 60 mg q6. Lasix 40 mg IV q6 IV heparin due to persistent A. fib GI: Super morbid obesity Tube feeds with Glucerna Bowel regimen FEN/RENAL: Acute kidney injury Gadnhi in place. Monitor intake and output. Monitor electrolytes. Lasix to 40 mg every 6 ID: ESBL Ecoli UTI Aspiration pneumonia predominantly left lower lobe ABX Meropenem and Zyvox Urine cx ESBL E Coli. Sputum beta strep HEME: No acute hematologic issues. Antiplatelet and anticoagulant therapy per cardiology IV heparin ENDO: Acute hyperglycemia without known history of diabetes. Insulin PROPH: SCDs for DVT prophylaxis. IV heparin. Received heparin bolus in lab rn. Famotidine for stress ulcer prophylaxis. ACCESS: PIV providing adequate access at this time. Place central venous line if needed. Patient's was updated at bedside. Patient is full code. Critical care time 35 minutes exclusive of separately billable procedures. Patient at this time remains critically ill with guarded prognosis. He has multiorgan failure and hypoxemia has not improved and with developing ARDS. In addition patient has acute STEMI, systolic CHF exacerbation and renal failure along with sepsis 05/24 His oxygenation has worsened and currently on 14 PEEP with 90% oxygen requirement. Prognosis remains guarded Problem Qualifiers (1) STEMI (ST elevation myocardial infarction): Qualified Codes: I21.3 - ST elevation (STEMI) myocardial infarction of unspecified site Julia Zavaleta MD May 24, 2017 15:47
[2017-05-24] MEDS: ATORVASTATIN 80 MG TAB PO SCH (19:33)
[2017-05-25] VITALS (19 sets, daily range): BP systolic 115–166; BP diastolic 63–92; PULSE 91–126; RESP 16–48; TEMP 99.4–99.8; O2SAT 92–97
[2017-05-25] MEDS: METOPROLOL TARTRATE 25 MG TAB PO SCH ×3 (00:57→18:10)
[2017-05-25] MEDS: LINEZOLID 600 MG PREMIX 300 ML IV SCH ×2 (00:57→14:24)
[2017-05-25] MEDS: PROPOFOL 1000 MG/100 ML IV PRN ×11 (02:55→23:44)
[2017-05-25] MEDS: RESP: ALBUTEROL 2.5 MG/IPRATROPIUM 0.5 MG NEB (SCH) INH ×5 (03:00→20:28)
[2017-05-25] MEDS ORDERED: METOPROLOL TARTRATE 5 MG/5 ML VIAL IV PUSH SCH (03:15)
[2017-05-25] MEDS ORDERED: METOPROLOL TARTRATE 5 MG/5 ML VIAL IV PUSH PRN (03:15)
[2017-05-25] MEDS: DILTIAZEM HCL 60 MG TAB PO SCH ×4 (04:00→22:00)
[2017-05-25] MEDS: CHLORHEXIDINE GLUCONATE 2 % 1 PACK (2 CLOTHS) TOP SCH (04:00)
[2017-05-25] MEDS: FUROSEMIDE 40 MG/4 ML VIAL IV PUSH SCH ×4 (04:29→20:23)
[2017-05-25] MEDS: HEPARIN-D5W 25,000 U/250 ML 250 ML IV PRN ×2 (04:30→22:11)
--- NOTE | 2017-05-25 05:37 | RADRPT ---
EXAM DATE/TIME: 05/25/2017 03:23 [facility] COMPARISON: CT THORAX W/O CONTRAST, May 21, 2017, 12:34. CHEST SINGLE AP, May 23, 2017, 11:23. INDICATIONS : Shortness of breath, possible pulmonary disease. MEDICAL HISTORY : Hypertension. Cardiovascular disease. SURGICAL HISTORY : Cholecystectomy. ENCOUNTER: Subsequent ACUITY: 1 week PAIN SCORE: Non-responsive. LOCATION: Bilateral chest FINDINGS: There is persistent left lower lobe consolidation with air bronchograms and with complete loss of del ineation left hemidiaphragm. The right lung is clear. The heart is enlarged, stable from prior. ET tube tip above the praveen. Gastric tube traverses the [id number]. Right internal jugular cathet er tip projects over the distal superior vena cava. CONCLUSION: Persistent left lower lobe consolidation. Rizwan Barboza MD on May 25, 2017 at 5:34 Board Certified Radiologist. This report was verified electronically.
[2017-05-25] MEDS: MEROPENEM INJ 1,000 MG in SODIUM CHLORIDE 0.9% INJ 100 ML IV SCH ×3 (06:45→22:32)
[2017-05-25 07:08] LABS: AUTOMATED NEUTROPHIL # 14.5 TH/MM3 (1.8-7.7); BASOPHIL # 0.1 TH/MM3 (0-0.2); BASOPHIL % 0.4 % (0.0-2.0); EOSINOPHIL # 0.5 TH/MM3 (0-0.4); HEMATOCRIT 34.5 % (39.0-51.0); HEMOGLOBIN 11.5 GM/DL (13.0-17.0); LYMPH % 3.6 % (9.0-44.0); LYMPHOCYTE # 0.6 TH/MM3 (1.0-4.8); MEAN CELL VOLUME 81.7 FL (80.0-100.0); MEAN CORPUSCULAR HEMOGLOBIN 27.3 PG (27.0-34.0); MEAN CORPUSCULAR HGB CONC 33.4 % (32.0-36.0); MEAN PLATELET VOLUME 9.7 FL (7.0-11.0); MONO % 8.8 % (0.0-8.0); MONOCYTE # 1.5 TH/MM3 (0-0.9); NEUT % 84.2 % (16.0-70.0); PLATELET COUNT 252 TH/MM3 (150-450); RED BLOOD COUNT 4.22 MIL/MM3 (4.50-5.90); RED CELL DISTRIBUTION WIDTH 16.2 % (11.6-17.2); WHITE BLOOD COUNT 17.2 TH/MM3 (4.0-11.0)
--- NOTE | 2017-05-25 07:27 | HHI.CCPN ---
Subjective Remarks/Hospital Course 51-year-old morbidly obese male with past history of atrial fibrillation with prior electrical cardioversion, chronic systolic heart failure , chronic neck and back pain, urinary incontinence, asthma/COPD, super morbid obesity who presents to [facility] emergency department after experiencing acute onset of shortness of breath. His is at bedside and states that the he was getting ready to go to bed and began walking and became short of breath and felt like he needed to sit up to breathe. When E VAC arrived he appeared cyanotic and they were unable to obtain sats by pulse ox. They administered albuterol neb, Solu-Medrol, etomidate, Ativan and attempted to intubate. Multiple attempts at endotracheal intubation were unsuccessful so they ultimately placed a Combitube at which point he vomited and went into PEA cardiac arrest. He was administered CPR and epinephrine 2 and had return of spontaneous circulation. He subsequently was in atrial fibrillation with RVR. Combitube was removed and he was reintubated by Dr. Anuja Wilson in the emergency department. She states airway was difficult with minimal mouth opening and that he was ultimately intubated with 4 Mac after multiple unsuccessful attempts with C-Mac. He was started on NTG drip due to hypertension and was started on cardizem drip for A fib RVR with rate 140s, given Lasix 80 mg IV. EKG then showed ST elevation in lead III and AVF and STEMI alert was called. He was subsequently hypoxic and hypercapneic on vent and RT initially tried on Bi-level but PaO2 was 51. Placed on PCV, sedated with propofol, fentanyl and administered paralytic and oxygenation improved adequately for transfer to color laboratory technician. He was then handed off to color laboratory technician team and underwent SUMI to OM1 per Dr. Iyer. Post cath he was off paralytic and sedation was held. He followed commands with all extremities and thus did not proceed with induced therapeutic hypothermia. 05/20: Remains intubated sedated. CXR shows persistent LLL infiltrate. UTI with ESBL E Coli. Cefepime DC'd and Ertapenem started. FiO2 45%, PEEP at 12. Start weaning. Currently rate controlled on Cardizem infusion. Nicardipine started for blood pressure control. Creat stable at 2.25 05/21: Patient remains critically ill with clinical improvement. FiO2 had to be increased to 85%, PEEP to 12. Chest x-ray shows pulmonary edema and left lower lobe infiltrate. I will get CT of the chest to evaluate infiltrate and assess for need for bronchoscopy. UO 2600 ml with Lasix. Patient was started on ertapenem yesterday for ESBL Escherichia coli-I were changed to meropenem to cover for Pseudomonas and also add Zyvox. Sputum Gram stain shows GPC 05/22: Remains intubated sedated critically ill requiring higher oxygen at 90%. I have increased inspiratory preceptor target tidal volume approximately 650- 700 for lung recruitment. UO adequate, CXR shows pulmonary vascular congestion. IV Lasix increase to 40 mg IV q8hr. 05/23/17: Remains hypoxemic FiO2 at 80% PEEP remains at 12. Chest x-ray still showing evidence of volume overload. Minimize IV infusions, increase Lasix to every 6 hours. 05/24/17: Episode of desaturation requiring oxygen increased to 100%. Currently weaned to 90%. Repeat sputum culture. I have increased PEEP to 14. UO improved with increased Lasix 05/25/17: Remains critical, oxygenation slighlty improved now Fio2 at 60%, but PEEP at 14. Large mucous plug removed by suctioning yesterday. Plan for bronchoscopy today. Developed A. fib with RVR again, no response to IV metoprolol 3. Start back on Cardizem infusion Objective Vital Signs Date Time Temp Pulse Resp B/P (MAP) Pulse Ox O2 Delivery O2 Flow Rate FiO2 05/25/17 06:00 120 05/25/17 04:00 60 05/25/17 04:00 99.9 22 151/80 (103) 94 Intake and Output 05/25/17 05/25/17 05/26/17 08:00 16:00 00:00 Intake Total 1857 ml Output Total 2750 ml Balance -893 ml Result Diagram: 05/25/17 0550 05/24/17 0530 Objective Remarks GENERAL: Morbidly obese male who is laying in bed critically ill, hypoxemic HEAD: Atraumatic. Normocephalic. EYES: Pupils 4 mm and reactive to 2 mm bilaterally. No scleral icterus. No injection or drainage. ENT: No nasal bleeding or discharge. Mucous membranes pink and moist. NECK: Trachea midline. Unable to appreciate JVD due to body habitus. CARDIOVASCULAR: Heart sounds distant. No murmur rub or gallop appreciated. A fib on monitor, rate controlled RESPIRATORY: Coarse bilateral breath sounds. Diminished at the bases. PC/AC PEEP 14. FiO2 60% GASTROINTESTINAL: Abdomen protuberant, overall soft. Unable to appreciate tenderness, rebound. MUSCULOSKELETAL: Extremities without clubbing, cyanosis, or edema. No obvious deformities. NEUROLOGICAL: Remains heavily sedated, GRACIELA. Slight withdrawal to pain A/P Problem List: (1) Cardiac arrest ICD Code: I46.9 - Cardiac arrest, cause unspecified Status: Acute (2) Difficult airway for intubation ICD Code: T88.4XXA - Failed or difficult intubation, initial encounter Status: Acute (3) Leukocytosis ICD Code: D72.829 - Elevated white blood cell count, unspecified Status: Acute (4) Aspiration into airway ICD Code: T17.908A - Unspecified foreign body in respiratory tract, part unspecified causing other injury, initial encounter Status: Acute (5) Respiratory failure with hypoxia and hypercapnia ICD Code: J96.91 - Respiratory failure, unspecified with hypoxia; J96.92 - Respiratory failure, unspecified with hypercapnia Status: Acute (6) Morbid obesity with BMI of 50.0-59.9, adult ICD Code: E66.01 - Morbid (severe) obesity due to excess calories; Z68.43 - Body mass index (BMI) 50-59.9 , adult Status: Chronic (7) JAIMEE (acute kidney injury) ICD Code: N17.9 - Acute kidney failure, unspecified Status: Acute (8) Atrial fibrillation ICD Code: I48.91 - Unspecified atrial fibrillation Status: Chronic (9) STEMI (ST elevation myocardial infarction) ICD Code: I21.3 - ST elevation (STEMI) myocardial infarction of unspecified site Status: Acute (10) Pulmonary edema ICD Code: J81.1 - Chronic pulmonary edema Status: Acute (11) Encephalopathy acute ICD Code: G93.40 - Encephalopathy, unspecified (12) Lactic acid acidosis ICD Code: E87.2 - Acidosis (13) VENANCIO (obstructive sleep apnea) ICD Code: G47.33 - Obstructive sleep apnea (adult) (pediatric) Status: Chronic (14) Systolic heart failure, chronic ICD Code: I50.22 - Chronic systolic (congestive) heart failure Status: Chronic (15) Hypertriglyceridemia ICD Code: E78.1 - Pure hyperglyceridemia Assessment and Plan NEURO: Acute encephalopathy upon arrival secondary to hypercapnia Peripheral neuropathy Depression Remains heavily sedated and intubated. Unable to do sedation vacation at this time due to severe hypoxemia Dr. Tan Performed sedation vacation and patient followed commands-did not meet criteria for induced therapeutic hypothermia. Hold gabapentin 1200 mg by mouth twice a day for now. Hold duloxetine/Lexapro Urine drug screen-positive only for gabapentin RESP: Acute hypercapnic and hypoxemic respiratory failure ARDS Aspiration pneumonia Pulmonary edema Difficult airway prior Tobacco abuse Obstructive sleep apnea Multiple E VAC attempts at airway unsuccessful. Ultimately was able to intubate with 4 Mac (multiple attempts apparently). There was difficulty with mouth opening. Profound hypoxemia upon arrival. Adjusted ventilator to pressure control ventilation with inspiratory pressure 30/I time 1.4/PEEP 12/FiO2 100%. Currently FIo2 at 45, PEEP 12. Currently on PCV PEEP 14, FiO2 60% insp p 26, inp T 1.3 sec. Plan for bronchoscopy today. Large mucous plug removed yesterday by suctioning CT chest -basilar infiltrates. ABX Meropenem and Zyvox DuoNeb every 6 hours. Albuterol every 2 hours as needed. CV: STEMI Pulmonary edema PEA cardiac arrest which was likely respiratory arrest due to hypoxemia and difficult airway A. fib with RVR Atrial fibrillation with prior electrical cardioversion Acute on Chronic systolic heart failure Hypertension Hypertriglyceridemia Lactic acidemia Taken urgently to color laboratory technician where he underwent drug-eluting stent to OM1 by Dr. Iyer 05/19/17 Echo 03/26/17ejection fraction 40-45% , Mild TR, mild LVH. Pulmonary artery pressure 29.9. Atorvastatin 80 daily at bedtime per Dr. Iyer Aspirin 81 daily, Brilinta 90 mg by mouth twice a day Metoprolol 50 mg q8. Hydralazine 100 mg every 8 hours Continue Cardizem for A fib rate control 60 mg q6. Resume Cardizem infusion due to A. fib with RVR 05/25 Lasix 40 mg IV q6 IV heparin due to persistent A. fib GI: Super morbid obesity Tube feeds with Glucerna Bowel regimen And scheduled lactulose Mag citrate 1 FEN/RENAL: Acute kidney injury Gandhi in place. Monitor intake and output. Monitor electrolytes. Lasix to 40 mg every 6. UO >4.2 L with diuresis ID: ESBL Ecoli UTI Aspiration pneumonia predominantly left lower lobe ABX Meropenem and Zyvox Urine cx ESBL E Coli. Sputum beta strep HEME: No acute hematologic issues. Antiplatelet and anticoagulant therapy per cardiology IV heparin ENDO: Acute hyperglycemia without known history of diabetes. Insulin PROPH: SCDs for DVT prophylaxis. IV heparin. Received heparin bolus in color laboratory technician. Famotidine for stress ulcer prophylaxis. ACCESS: PIV providing adequate access at this time. Place central venous line if needed. Patient's was updated at bedside. Patient is full code. Critical care time 35 minutes exclusive of separately billable procedures. Patient at this time remains critically ill with guarded prognosis. He has multiorgan failure and hypoxemia has not improved and with developing ARDS. In addition patient has acute STEMI, systolic CHF exacerbation and renal failure along with sepsis 05/24 His oxygenation has worsened and currently on 14 PEEP with 90% oxygen requirement. Prognosis remains guarded Problem Qualifiers (1) STEMI (ST elevation myocardial infarction): Qualified Codes: I21.3 - ST elevation (STEMI) myocardial infarction of unspecified site Julia Zavaleta MD May 25, 2017 07:27
[2017-05-25] MEDS: CHLORHEXIDINE 0.12% (ORAL KIT) 15 ML CUP MT SCH ×2 (08:00→20:00)
[2017-05-25] MEDS ORDERED: MAGNESIUM CITRATE SOLN 300 ML BTL PO ONE (08:00)
[2017-05-25] MEDS ORDERED: DILTIAZEM HCL 25 MG/5 ML VIAL IV PUSH ONE (08:00)
[2017-05-25] MEDS: DILTIAZEM INJ 125 MG in SODIUM CHLORIDE 0.9% INJ 100 ML IV PRN ×2 (08:27→18:07)
[2017-05-25] MEDS: TICAGRELOR 90 MG TAB PO SCH ×2 (08:52→20:23)
[2017-05-25] MEDS: FAMOTIDINE 20 MG/2 ML VIAL IV PUSH SCH ×2 (08:52→20:23)
[2017-05-25] MEDS: POTASSIUM CHLORIDE 25 MEQ EFFERVESCENT TAB PO SCH ×2 (08:53→20:25)
[2017-05-25] MEDS: DOCUSATE SODIUM 50 MG/SENNA 8.6 MG TAB PO SCH ×2 (08:53→20:26)
[2017-05-25] MEDS: ASPIRIN 81 MG CHEW TAB PO SCH (08:53)
[2017-05-25] MEDS: SODIUM CHLORIDE 0.9% FLUSH 10 ML FLUSH IV FLUSH SCH ×2 (08:54→20:24)
[2017-05-25] MEDS: LACTULOSE SYRUP 20 GM/30 ML CUP PO SCH ×3 (08:54→23:45)
[2017-05-25] MEDS: BENEPROTEIN POWDER 1 PACK G-TUBE SCH ×3 (08:55→18:00)
[2017-05-25] MEDS: hydrALAZINE HCL 100 MG TAB PO SCH ×2 (09:00→20:22)
[2017-05-25 09:50] LABS: ALBUMIN 2.2 GM/DL (3.4-5.0); ALKALINE PHOSPHATASE 156 U/L (45-117); ALT (GPT) 25 U/L (12-78); AST (GOT) 90 U/L (15-37); BICARBONATE 25.9 MEQ/L (21.0-32.0); BLOOD UREA NITROGEN 42 MG/DL (7-18); CALCIUM 8.6 MG/DL (8.5-10.1); CHLORIDE 106 MEQ/L (98-107); CREATININE 1.72 MG/DL (0.60-1.30); GLOMERULAR FILTRATION RATE 42 ML/MIN (>89); GLUCOSE,RANDOM 117 MG/DL (74-106); MAGNESIUM 2.4 MG/DL (1.5-2.5); SODIUM (NA) 141 MEQ/L (136-145); TOTAL BILIRUBIN ADULT 0.9 MG/DL (0.2-1.0); TOTAL PROTEIN 7.5 GM/DL (6.4-8.2)
[2017-05-25] MEDS ORDERED: MIDAZOLAM HCL 5 MG/ML VIAL (1 ML) IV ONE (14:00)
[2017-05-25] MEDS ORDERED: ROCURONIUM INJ 50 MG/5 ML VIAL IV ONE (14:00)
[2017-05-25] MEDS ORDERED: fentaNYL CITRATE 250 MCG/5 ML AMP IV PUSH ONE (14:00)
--- NOTE | 2017-05-25 14:29 | PD.PROCEDR ---
Procedure Note Procedure PROCEDURE PERFORMED: Fiberoptic bronchoscopy with washings and lavage. PREOPERATIVE DIAGNOSIS: Pneumonia, hypoxia POSTOPERATIVE DIAGNOSES: Pneumonia, hypoxia ANESTHESIA: Continuous propofol infusion, Rocuronium 50 mg IV PROCEDURAL PHYSICIAN: Julia Zavaleta MD DESCRIPTION OF THE PROCEDURE IN DETAIL AND FINDINGS: The patient was already intubated with a size 8 endotracheal tube and the Olympus bronchoscope was introduced into the ET tube, and advanced to the trachea. The trachea and praveen appeared normal. The scope was then advanced towards the right mainstem bronchus. The right mainstem and right upper lobe segmental bronchi were devoid of any significant secretions. The right lower lobe segmental bronchi demonstrated mild to moderate inflammation and yellow secretions and these were suctioned out. BAL done. No significant secretions in the middle lobe segmental bronchi. The scope was then advanced into the left main bronchus. The left lower lobe segmental bronchi had moderate amount of yellow secretions and moderate inflammation. This was suctioned out and BAL performed. The left upper lobe segmental bronchi was devoid of any major secretions. The procedure was then terminated. The patient tolerated the procedure well. Julia Zavaleta MD May 25, 2017 14:29
[2017-05-25] MEDS: ATORVASTATIN 80 MG TAB PO SCH (20:22)
[2017-05-25] MEDS ORDERED: EPINEPHrine HCL (1:10,000) 1 MG/10 ML SYRINGE ONE (20:43)
[2017-05-25] MEDS ORDERED: AMIODARONE HCL 150 MG/3 ML VIAL ONE (20:43)
[2017-05-25] MEDS ORDERED: AMIODARONE INJ 150 MG in DEXTROSE 5% IN WATER 100ML INJ 100 ML IV ONE ×2 (21:00)
[2017-05-25] MEDS ORDERED: AMIODARONE INJ 450 MG in SODIUM CHLOR 0.9% (EXCEL) INJ 241 ML IV PRN (21:03)
--- NOTE | 2017-05-25 22:01 | RADRPT ---
EXAM DATE/TIME: 05/25/2017 21:01 [facility] COMPARISON: CHEST SINGLE AP, May 25, 2017, 3:23. INDICATIONS : Respiratory distress. Post code. MEDICAL HISTORY : Hypertension. Cardiovascular disease. SURGICAL HISTORY : Cholecystectomy. ENCOUNTER: Subsequent ACUITY: 1 week PAIN SCORE: Non-responsive. LOCATION: Bilateral chest FINDINGS: Endotracheal tube in good position. NG enters stomach. Increasing bilateral airspace disease since ea rlier exam, especially in upper lobes. Probable small effusions. Cardiomegaly. CONCLUSION: 1. Increasing bilateral airspace disease, especially in upper lobes. Differential diagnosis includes acute pulmonary edema and aspiration. Errol Iyer MD on May 25, 2017 at 21:57 Board Certified Radiologist. This report was verified electronically.
[2017-05-25 22:19] LABS: AUTOMATED NEUTROPHIL # 19.6 TH/MM3 (1.8-7.7); BASOPHIL # 0.1 TH/MM3 (0-0.2); BASOPHIL % 0.3 % (0.0-2.0); EOSINOPHIL # 0.4 TH/MM3 (0-0.4); EOSINOPHIL % 1.9 % (0.0-4.0); HEMATOCRIT 36.7 % (39.0-51.0); HEMOGLOBIN 11.7 GM/DL (13.0-17.0); LYMPH % 6.2 % (9.0-44.0); LYMPHOCYTE # 1.4 TH/MM3 (1.0-4.8); MEAN CELL VOLUME 82.9 FL (80.0-100.0); MEAN CORPUSCULAR HEMOGLOBIN 26.5 PG (27.0-34.0); MEAN CORPUSCULAR HGB CONC 31.9 % (32.0-36.0); MEAN PLATELET VOLUME 9.4 FL (7.0-11.0); MONO % 7.6 % (0.0-8.0); MONOCYTE # 1.8 TH/MM3 (0-0.9); PLATELET COUNT 261 TH/MM3 (150-450); RED BLOOD COUNT 4.43 MIL/MM3 (4.50-5.90); RED CELL DISTRIBUTION WIDTH 16.4 % (11.6-17.2); WHITE BLOOD COUNT 23.4 TH/MM3 (4.0-11.0)
[2017-05-25 22:42] LABS: ALBUMIN 2.1 GM/DL (3.4-5.0); ALT (GPT) 52 U/L (12-78); AST (GOT) 158 U/L (15-37); BICARBONATE 24.5 MEQ/L (21.0-32.0); BLOOD UREA NITROGEN 50 MG/DL (7-18); CALCIUM 9.5 MG/DL (8.5-10.1); CHLORIDE 106 MEQ/L (98-107); CREATININE 2.03 MG/DL (0.60-1.30); GLOMERULAR FILTRATION RATE 35 ML/MIN (>89); GLUCOSE,RANDOM 218 MG/DL (74-106); MAGNESIUM 3.9 MG/DL (1.5-2.5); SODIUM (NA) 141 MEQ/L (136-145)
[2017-05-25 22:49] LABS: ALKALINE PHOSPHATASE 222 U/L (45-117); TOTAL BILIRUBIN ADULT 0.9 MG/DL (0.2-1.0); TOTAL PROTEIN 7.6 GM/DL (6.4-8.2)
[2017-05-25 23:00] LABS: PHOSPHORUS 8.1 MG/DL (2.5-4.9)
[2017-05-26] VITALS (8 sets, daily range): BP systolic 119–129; BP diastolic 67–77; PULSE 84–90; RESP 17–22; TEMP 100; O2SAT 0–99
[2017-05-26] MEDS: METOPROLOL TARTRATE 25 MG TAB PO SCH (01:27)
[2017-05-26] MEDS: LINEZOLID 600 MG PREMIX 300 ML IV SCH (01:27)
[2017-05-26] MEDS: PROPOFOL 1000 MG/100 ML IV PRN ×4 (02:18→11:15)
[2017-05-26] MEDS: DILTIAZEM HCL 60 MG TAB PO SCH (04:00)
[2017-05-26] MEDS: CHLORHEXIDINE GLUCONATE 2 % 1 PACK (2 CLOTHS) TOP SCH (04:00)
[2017-05-26] MEDS: FUROSEMIDE 40 MG/4 ML VIAL IV PUSH SCH (04:25)
[2017-05-26 04:36] LABS: AUTOMATED NEUTROPHIL # 14.8 TH/MM3 (1.8-7.7); BASOPHIL % 0.3 % (0.0-2.0); EOSINOPHIL % 0.2 % (0.0-4.0); HEMATOCRIT 34.3 % (39.0-51.0); HEMOGLOBIN 11.1 GM/DL (13.0-17.0); LYMPH % 3.1 % (9.0-44.0); LYMPHOCYTE # 0.5 TH/MM3 (1.0-4.8); MEAN CELL VOLUME 81.3 FL (80.0-100.0); MEAN CORPUSCULAR HEMOGLOBIN 26.4 PG (27.0-34.0); MEAN CORPUSCULAR HGB CONC 32.5 % (32.0-36.0); MEAN PLATELET VOLUME 9.3 FL (7.0-11.0); MONO % 10.1 % (0.0-8.0); MONOCYTE # 1.7 TH/MM3 (0-0.9); NEUT % 86.3 % (16.0-70.0); PLATELET COUNT 228 TH/MM3 (150-450); RED BLOOD COUNT 4.22 MIL/MM3 (4.50-5.90); RED CELL DISTRIBUTION WIDTH 16.2 % (11.6-17.2); WHITE BLOOD COUNT 17.1 TH/MM3 (4.0-11.0)
[2017-05-26] MEDS: RESP: ALBUTEROL 2.5 MG/IPRATROPIUM 0.5 MG NEB (SCH) INH ×2 (04:59→07:51)
[2017-05-26 05:04] LABS: ALKALINE PHOSPHATASE 171 U/L (45-117); ALT (GPT) 47 U/L (12-78); AST (GOT) 150 U/L (15-37); BICARBONATE 25.3 MEQ/L (21.0-32.0); BLOOD UREA NITROGEN 51 MG/DL (7-18); CALCIUM 8.7 MG/DL (8.5-10.1); CHLORIDE 106 MEQ/L (98-107); CREATININE 2.04 MG/DL (0.60-1.30); GLOMERULAR FILTRATION RATE 34 ML/MIN (>89); GLUCOSE,RANDOM 114 MG/DL (74-106); MAGNESIUM 3.4 MG/DL (1.5-2.5); SODIUM (NA) 142 MEQ/L (136-145); TOTAL BILIRUBIN ADULT 0.7 MG/DL (0.2-1.0); TOTAL PROTEIN 7.2 GM/DL (6.4-8.2)
--- NOTE | 2017-05-26 06:09 | RADRPT ---
EXAM DATE/TIME: 05/26/2017 04:42 [facility] COMPARISON: CHEST SINGLE AP, May 25, 2017, 21:01. INDICATIONS : Respiratory distress. MEDICAL HISTORY : Hypertension. Cardiovascular disease. SURGICAL HISTORY : Cholecystectomy. ENCOUNTER: Subsequent ACUITY: 4 - 6 days PAIN SCORE: Non-responsive. LOCATION: Bilateral chest FINDINGS: ET tube tip well above the praveen. Right internal jugular catheter tip projects over the proximal oshea perior vena cava. Gastric tube traverses the [id number]. Persistent patchy and partially consoli dative infiltrates involving the upper and lower left lung with loss of delineation of left hemidiaph ragm. There is a new non-consolidative infiltrate in the right lower lobe. CONCLUSION: 1. Persistent consolidation left upper and left lower lung. 2. New patchy infiltrates in the right lower lung. Rizwan Barboza MD on May 26, 2017 at 6:06 Board Certified Radiologist. This report was verified electronically.
[2017-05-26] MEDS: MEROPENEM INJ 1,000 MG in SODIUM CHLORIDE 0.9% INJ 100 ML IV SCH (06:11)
--- NOTE | 2017-05-26 07:11 | HHI.CCPN ---
Subjective Remarks/Hospital Course 51-year-old morbidly obese male with past history of atrial fibrillation with prior electrical cardioversion, chronic systolic heart failure , chronic neck and back pain, urinary incontinence, asthma/COPD, super morbid obesity who presents to [facility] emergency department after experiencing acute onset of shortness of breath. His is at bedside and states that the he was getting ready to go to bed and began walking and became short of breath and felt like he needed to sit up to breathe. When E VAC arrived he appeared cyanotic and they were unable to obtain sats by pulse ox. They administered albuterol neb, Solu-Medrol, etomidate, Ativan and attempted to intubate. Multiple attempts at endotracheal intubation were unsuccessful so they ultimately placed a Combitube at which point he vomited and went into PEA cardiac arrest. He was administered CPR and epinephrine 2 and had return of spontaneous circulation. He subsequently was in atrial fibrillation with RVR. Combitube was removed and he was reintubated by Dr. Anuja Wilson in the emergency department. She states airway was difficult with minimal mouth opening and that he was ultimately intubated with 4 Mac after multiple unsuccessful attempts with C-Mac. He was started on NTG drip due to hypertension and was started on cardizem drip for A fib RVR with rate 140s, given Lasix 80 mg IV. EKG then showed ST elevation in lead III and AVF and STEMI alert was called. He was subsequently hypoxic and hypercapneic on vent and RT initially tried on Bi-level but PaO2 was 51. Placed on PCV, sedated with propofol, fentanyl and administered paralytic and oxygenation improved adequately for transfer to lab nurse. He was then handed off to lab nurse team and underwent SUMI to OM1 per Dr. Iyer. Post cath he was off paralytic and sedation was held. He followed commands with all extremities and thus did not proceed with induced therapeutic hypothermia. 05/20: Remains intubated sedated. CXR shows persistent LLL infiltrate. UTI with ESBL E Coli. Cefepime DC'd and Ertapenem started. FiO2 45%, PEEP at 12. Start weaning. Currently rate controlled on Cardizem infusion. Nicardipine started for blood pressure control. Creat stable at 2.25 05/21: Patient remains critically ill with clinical improvement. FiO2 had to be increased to 85%, PEEP to 12. Chest x-ray shows pulmonary edema and left lower lobe infiltrate. I will get CT of the chest to evaluate infiltrate and assess for need for bronchoscopy. UO 2600 ml with Lasix. Patient was started on ertapenem yesterday for ESBL Escherichia coli-I were changed to meropenem to cover for Pseudomonas and also add Zyvox. Sputum Gram stain shows GPC 05/22: Remains intubated sedated critically ill requiring higher oxygen at 90%. I have increased inspiratory preceptor target tidal volume approximately 650- 700 for lung recruitment. UO adequate, CXR shows pulmonary vascular congestion. IV Lasix increase to 40 mg IV q8hr. 05/23/17: Remains hypoxemic FiO2 at 80% PEEP remains at 12. Chest x-ray still showing evidence of volume overload. Minimize IV infusions, increase Lasix to every 6 hours. 05/24/17: Episode of desaturation requiring oxygen increased to 100%. Currently weaned to 90%. Repeat sputum culture. I have increased PEEP to 14. UO improved with increased Lasix 05/25/17: Remains critical, oxygenation slighlty improved now Fio2 at 60%, but PEEP at 14. Large mucous plug removed by suctioning yesterday. Plan for bronchoscopy today. Developed A. fib with RVR again, no response to IV metoprolol 3. Start back on Cardizem infusion 05/26/17: Developed V FIb arrest yesterday evening. Shocked multiple times, ACLS protocol for approximately 20 min with ROSC. Remains extremely hypoxemic with PEEP 14, FiO2 100%. Remains on amiodarone gtt. DNR now. states that patient never wanted to be supported on machines and may decide to withdraw life support today. Prognosis very poor due to STEMI, with recurrent cardiac arrest/ VFIB, possible anoxic brain injury and refractory hypoxemia. Palliative care consulted Objective Vital Signs Date Time Temp Pulse Resp B/P (MAP) Pulse Ox O2 Delivery O2 Flow Rate FiO2 05/26/17 04:54 96 100 05/26/17 04:00 100.0 84 17 120/74 (89) 129/68 (88) Intake and Output 05/26/17 05/26/17 05/27/17 08:00 16:00 00:00 Intake Total 1152 ml Output Total 1350 ml Balance -198 ml Result Diagram: 05/26/1739905/26/17399 Objective Remarks GENERAL: Morbidly obese male who is laying in bed critically ill, hypoxemic. On Amiodarone gtt HEAD: Atraumatic. Normocephalic. EYES: Pupils equal. No scleral icterus. No injection or drainage. ENT: No nasal bleeding or discharge. Mucous membranes pink and moist. NECK: Trachea midline. Unable to appreciate JVD due to body habitus. CARDIOVASCULAR: Heart sounds distant. No murmur rub or gallop appreciated. On Amiodarone gtt RESPIRATORY: Coarse bilateral breath sounds. Diminished at the bases. PC/AC PEEP 14. FiO2 100% GASTROINTESTINAL: Abdomen protuberant, overall soft. Unable to appreciate tenderness, rebound. MUSCULOSKELETAL: Extremities without clubbing, cyanosis, or edema. NEUROLOGICAL: Remains sedated with propofol, GRACIELA. Slight withdrawal to pain A/P Problem List: (1) Cardiac arrest ICD Code: I46.9 - Cardiac arrest, cause unspecified Status: Acute (2) Difficult airway for intubation ICD Code: T88.4XXA - Failed or difficult intubation, initial encounter Status: Acute (3) Leukocytosis ICD Code: D72.829 - Elevated white blood cell count, unspecified Status: Acute (4) Aspiration into airway ICD Code: T17.908A - Unspecified foreign body in respiratory tract, part unspecified causing other injury, initial encounter Status: Acute (5) Respiratory failure with hypoxia and hypercapnia ICD Code: J96.91 - Respiratory failure, unspecified with hypoxia; J96.92 - Respiratory failure, unspecified with hypercapnia Status: Acute (6) Morbid obesity with BMI of 50.0-59.9, adult ICD Code: E66.01 - Morbid (severe) obesity due to excess calories; Z68.43 - Body mass index (BMI) 50-59.9 , adult Status: Chronic (7) JAIMEE (acute kidney injury) ICD Code: N17.9 - Acute kidney failure, unspecified Status: Acute (8) Atrial fibrillation ICD Code: I48.91 - Unspecified atrial fibrillation Status: Chronic (9) STEMI (ST elevation myocardial infarction) ICD Code: I21.3 - ST elevation (STEMI) myocardial infarction of unspecified site Status: Acute (10) Pulmonary edema ICD Code: J81.1 - Chronic pulmonary edema Status: Acute (11) Encephalopathy acute ICD Code: G93.40 - Encephalopathy, unspecified (12) Lactic acid acidosis ICD Code: E87.2 - Acidosis (13) VENANCIO (obstructive sleep apnea) ICD Code: G47.33 - Obstructive sleep apnea (adult) (pediatric) Status: Chronic (14) Systolic heart failure, chronic ICD Code: I50.22 - Chronic systolic (congestive) heart failure Status: Chronic (15) Hypertriglyceridemia ICD Code: E78.1 - Pure hyperglyceridemia Assessment and Plan NEURO: Acute encephalopathy upon arrival secondary to hypercapnia Probable anoxic injury Peripheral neuropathy Depression Unable to do sedation vacation due to severe hypoxemia Dr. Tan Performed sedation vacation on admission and patient followed commands -did not meet criteria for induced therapeutic hypothermia. Might have sustained anoxic injury with V Fib arrest for approx 20 min on Hold gabapentin 1200 mg by mouth twice a day for now. Hold duloxetine/Lexapro Urine drug screen-positive only for gabapentin RESP: Acute hypercapnic and hypoxemic respiratory failure ARDS Aspiration pneumonia Pulmonary edema Difficult airway prior Tobacco abuse Obstructive sleep apnea Multiple E VAC attempts at airway unsuccessful. Ultimately was able to intubate with 4 Mac (multiple attempts apparently). There was difficulty with mouth opening. Profound hypoxemia upon arrival. Adjusted ventilator to pressure control ventilation with inspiratory pressure 30/I time 1.4/PEEP 12/FiO2 100%. Currently FIo2 at 45, PEEP 12. Currently on PCV PEEP 14, FiO2 100% insp p 26, inp T 1.3 sec. s/p bronchoscopy 05/25/[address] moderate LL secretions. CT chest -basilar infiltrates. ABX Meropenem and Zyvox DuoNeb every 6 hours. Albuterol every 2 hours as needed. CV: STEMI V Fib arrest 05/25/17 Pulmonary edema PEA cardiac arrest which was likely respiratory arrest due to hypoxemia and difficult airway A. fib with RVR Atrial fibrillation with prior electrical cardioversion Acute on Chronic systolic heart failure Hypertension Hypertriglyceridemia Lactic acidemia See code details 05/25/17, Continue amiodarone gtt STEMI and PCI with drug-eluting stent to OM1 by Dr. Iyer 05/19/17 Echo 03/26/17ejection fraction 40-45% , Mild TR, mild LVH. Pulmonary artery pressure 29.9. Atorvastatin 80 qhs. Aspirin 81 daily, Brilinta 90 mg by mouth twice a day Metoprolol 50 mg q8. Hydralazine 100 mg every 8 hours Continue Cardizem for A fib rate control 60 mg q6. DC Cardizem is patient is on amiodarone Lasix 40 mg IV q6 IV heparin due to persistent A. fib GI: Super morbid obesity Hold Tube feeds with Glucerna Bowel regimen Scheduled lactulose FEN/RENAL: Acute kidney injury Gandhi in place. Monitor intake and output. Monitor electrolytes. Lasix to 40 mg every 6. UO 3L ID: ESBL Ecoli UTI Aspiration pneumonia predominantly left lower lobe ABX Meropenem and Zyvox Urine cx ESBL E Coli. Sputum beta strep BAL 05/25/17 pending HEME: No acute hematologic issues. Antiplatelet therapy per cardiology IV heparin ENDO: Acute hyperglycemia without known history of diabetes. Insulin PROPH: SCDs for DVT prophylaxis. IV heparin. Received heparin bolus in lab nurse. Famotidine for stress ulcer prophylaxis. ACCESS: PIV providing adequate access at this time. Place central venous line if needed. Patient's was updated at bedside. Patient is DNR Critical care time 40 minutes exclusive of separately billable procedures. Patient at this time remains critically ill with guarded prognosis. He has multiorgan failure and hypoxemia has not improved and with developing ARDS. In addition patient has acute STEMI, systolic CHF exacerbation and renal failure along with sepsis 05/24 His oxygenation has worsened and currently on 14 PEEP with 90% oxygen requirement. Prognosis remains guarded 05/26/17: 05/26/17: Developed V FIb arrest yesterday evening, ACLS protocol for approximately 20 min with ROSC. Severely hypoxemic with PEEP 14, FiO2 100%.DNR now. states that patient never wanted to be supported on machines. Prognosis very poor due to STEMI, recurrent cardiac arrest/ VFIB, possible anoxic brain injury and refractory hypoxemia. Palliative care consulted. I agree with decision to withdraw if that's in accordance with patient's wishes. I have informed Dr. Iyer also. Problem Qualifiers (1) STEMI (ST elevation myocardial infarction): Qualified Codes: I21.3 - ST elevation (STEMI) myocardial infarction of unspecified site Julia Zavaleta MD May 26, 2017 07:11
[2017-05-26] MEDS ORDERED: LORazepam 2 MG/ML VIAL IV PUSH ONE ×2 (11:15→11:45)
[2017-05-26] MEDS ORDERED: HYDROmorphone HCL PF 2 MG/ML VIAL IV PUSH PRN ×2 (11:45)
[2017-05-26] MEDS ORDERED: LORazepam 2 MG/ML VIAL IV PUSH PRN ×2 (11:45)
[2017-05-26] MEDS ORDERED: ACETAMINOPHEN 650 MG SUPP RECTAL PRN (11:45)
[2017-05-26] MEDS ORDERED: FUROSEMIDE 20 MG/2 ML VIAL IV PUSH PRN (11:45)
[2017-05-26] MEDS ORDERED: HYOSCYAMINE 0.5 MG/ML AMP IV PUSH PRN (11:45)
[2017-05-26] MEDS ORDERED: LORazepam 2 MG/ML VIAL IV PUSH SCH (12:00)
[2017-05-26] MEDS ORDERED: HYDROmorphone HCL PF 2 MG/ML VIAL IV PUSH SCH (12:00)
[2017-05-26] MEDS ORDERED: HYDROmorphone HCL PF 2 MG/ML VIAL IV PUSH ONE ×2 (12:00→12:15)
[2017-05-26] MEDS ORDERED: HYOSCYAMINE 0.5 MG/ML AMP IV PUSH ONE (12:00)
--- NOTE | 2017-05-26 12:32 | PD.CONS ---
Consult Service Palliative Care . Consult Requested By Dr. Rooney . Primary Care Physician No Primary Care Physician . Reason for Consultation a. To assist with evaluation and management of symptoms including: dyspnea, pain. b. To assist medical decision maker(s) with: better understanding of current medical conditions; weighing benefits/burdens of medical treatment options; making medical treatment decisions. . HPI History of Present Illness Mr. Black is a 51 year old male with past medical history of COPD/asthma, chronic systolic heart failure, atrial fibrillation status post cardioversion, morbid obesity, urinary incontinence, peripheral neuropathy, hypertension and depression. Patient presented to [facility] emergency department on 05/19/17 for evaluation of acute onset shortness of breath. He reported he was getting ready for bed when he became short of breath, feeling like he needed to sit up to breathe. Upon HVAC arrival patient appeared cyanotic unable to obtain oxygen saturation. They administered albuterol nebulizer, Solu-Medrol, etomidate, lorazepam and attempted to intubate, multiple attempts at intubation were unsuccessful and combitube was placed. Patient vomited and went into PEA arrest. CPR was started, epinephrine administered with return of spontaneous circulation. He was subsequently in atrial fibrillation with RVR. Patient was reintubated and placed on mechanical ventilation upon arrival to the emergency department. EKG revealed ST elevation, STEMI alert was called. Cardiology, Dr. Iyer was consulted. Patient was transferred to the [employer] underwent SUMI to OM1. Admitted to ICU. Patient remains in ICU ventilation. Patient has continued to require high ventilator support secondary to hypoxemia/desaturation episodes. He underwent bronchoscopy on 05/25/17 for mucous plugs. Developed atrial fibrillation with RVR again no response to IV metoprolol, Cardizem drip restarted. On 05/26/17 patient developed the fib arrest, shocked multiple times, a CLS protocol for approximately 20-30 minutes with return of spontaneous circulation. Patient remained hypoxemic with ventilatory support Fi02 100%, PEEP 14. elected DNR status. Palliative care was consulted to assist with further clarification of treatment goals in this patient was very poor prognosis secondary to STEMI, recurrent cardiac arrest/V fib, possible anoxic brain injury, refractory hypoxemia and worsening renal function. . Function/Cognitive Trajectory Patient has been disabled for approximately 10 years secondary to chronic neck and back pain. reports some decline in the months leading up to this hospitalization. She reports that he told her before he came to the hospital that he thinks he "waited too long" to seek medical attention. . Review of Systems ROS Limitations: Intubated, Unresponsive (ROS per EMR review and family report , patient incapacitated.) Constitutional: COMPLAINS OF: Fatigue, Change in appetite (decreased), Generalized weakness (secondary to chronic pain and elevated BMI) Respiratory: COMPLAINS OF: Shortness of breath Cardiovascular: COMPLAINS OF: Dyspnea on Exertion Musculoskeletal: COMPLAINS OF: Joint pain, Back pain, Neck pain Hematologic/Lymphatics: COMPLAINS OF: Bruising Psychiatric: COMPLAINS OF: Anxiety (secondary to shortness of breath) Past Family Social History Coded Allergies: clindamycin (Unverified Allergy, Severe, Hives, 05/18/17) erythromycin base (Unverified Allergy, Severe, Hives, 05/18/17) red dye (Unverified Allergy, Unknown, 05/18/17) Past Medical History Atrial fibrillation status post cardioversion Chronic systolic heart failure Urinary incontinence COPD Asthma Fall with concussion 19 years ago Morbid obesity Peripheral neuropathy Hypertension Depression . Past Surgical History Cholecystectomy Tonsillectomy . Reported Medications Reported Meds & Active Scripts Active Klor-Con M10 (Potassium Chloride Microencaps) 10 Meq Tab 10 Meq PO DAILY Lasix (Furosemide) 40 Mg Tab 40 Mg PO DAILY Metoprolol Succinate ER 24 HR (Metoprolol Succinate) 100 Mg Tab 100 Mg PO DAILY may take first dose at 8 am Aldactone (Spironolactone) 25 Mg Tab 25 Mg PO DAILY Catapres (Clonidine) 0.2 Mg Tab 0.2 Mg PO Q8HR May start taking at 8am, followed by every 8 hrs Enalapril (Enalapril Maleate) 10 Mg Tab 10 Mg PO Q12HR may start at 8 am first dose Duloxetine DR (Duloxetine HCl) 60 Mg Capdr 60 Mg PO BID Aspirin Low Dose (Aspirin) 81 Mg Chew 81 Mg CHEW DAILY Gabapentin 600 Mg Tab 1,200 Mg PO BID Lexapro (Escitalopram Oxalate) 20 Mg Tab 20 Mg PO DAILY Bariatric Rollator/Extra (Device) 1 Mis Mis Ea .ROUTE DIRECTED Reported Oxycodone-Acetaminophen 7.5-325 mg Tab 1 Tab PO BID . Current Medications Medications (Trade) Dose Ordered Sig/Yi Route Start Time Stop Time Status Last Admin (NS Flush) 2 ml UNSCH PRN IV FLUSH 05/19/17 01:30 05/22/17 20:21 (NS Flush) 2 ml BID IV FLUSH 05/19/17 09:00 05/25/17 20:24 (Zofran Inj) 4 mg Q6H PRN IV PUSH 05/19/17 01:30 (Albuterol Neb) 2.5 mg Q2HR NEB PRN INH 05/19/17 01:30 05/22/17 11:13 (Dulcolax Supp) 10 mg DAILY PRN RECTAL 05/19/17 01:30 (Dilaudid Pf Inj) 2 mg ONCE ONCE IV PUSH 05/26/17 12:00 05/26/17 12:01 (Levsin Inj) 0.25 mg ONCE ONCE IV PUSH 05/26/17 12:00 05/26/17 12:01 (Dilaudid Pf Inj) 2 mg ONCE ONCE IV PUSH 05/26/17 12:15 05/26/17 12:16 (Dilaudid Pf Inj) 2 mg Q4HR IV PUSH 05/26/17 12:00 (Dilaudid Pf Inj) 1 mg Q30M PRN IV PUSH 05/26/17 11:45 UNV (Dilaudid Pf Inj) 2 mg Q30M PRN IV PUSH 05/26/17 11:45 UNV (Ativan Inj) 2 mg Q4HR IV PUSH 05/26/17 12:00 (Ativan Inj) 1 mg Q1H PRN IV PUSH 05/26/17 11:45 (Ativan Inj) 2 mg Q1H PRN IV PUSH 05/26/17 11:45 (Levsin Inj) 0.25 mg Q4H PRN IV PUSH 05/26/17 11:45 (Tylenol Supp) 650 mg Q4H PRN RECTAL 05/26/17 11:45 (Lasix Inj) 20 mg Q6H PRN IV PUSH 05/26/17 11:45 UNV Family History Mother developed coronary artery disease in her 50s, stents placed and CABG. Father of massive [place], age 75 approximately 14 months ago. . Substance Use Tobacco: previously smoked 2 to 3 PPD, quit 2003. Smoked 10- 15 years Alcohol: no alcohol use. Prescription med abuse: none. Illicits: recently attempted marijuana's for pain control. . Psychosocial History for 19 years. Moved to [place] from [facility] approximately one year ago. Disabled. Previously worked as a refrigerated national truck driver. . Spiritual/Cultural Factors Has a great deal of alysia, prior near- experience where he found great peace in seeing his grandmother who had previously . Welcomes storage wharfage clerk support. . Living Will: Never completed Health Care Surrogate: Never completed Durable Power of Litigation Manager: Never completed Health Care Surrogate(s): Patient is incapacitated to make his own health care decisions, will not regain capacity. No written advance directives. According to [place] statutes, health care proxy decision-making falls to his spouse, Yee. . Today's verbally stated goals: Patient incapacitated, will not regain capacity. . Family/friends goals: has elected to proceed with withdrawal of life support with transition to comfort measures. Elects DNR status. . Ethical and Legal Issues Patient is incapacitated to make his own health care decisions, will not regain capacity. No written advance directives. According to [place] statutes, health care proxy decision-making falls to his spouse, Yee. . Physical Exam Vital Signs Date Time Temp Pulse Resp B/P (MAP) Pulse Ox O2 Delivery O2 Flow Rate FiO2 05/26/17 10:00 90 05/26/17 10:00 99 100 05/26/17 08:00 84 05/26/17 08:00 100.0 84 17 125/77 (93) 99 05/26/17 08:00 60 05/26/17 07:44 99 100 05/26/17 04:54 96 100 05/26/17 04:00 100.0 84 17 120/74 (89) 94 129/68 (88) 05/26/17 04:00 84 05/26/17 04:00 60 05/26/17 02:00 85 05/26/17 00:00 60 05/26/17 00:00 85 05/26/17 00:00 100.2 85 22 119/73 (88) 91 123/67 (85) 05/25/17 23:49 92 100 05/25/17 22:25 90 119/67 05/25/17 22:25 90 120/68 05/25/17 22:00 91 05/25/17 22:00 60 05/25/17 20:29 93 60 05/25/17 20:00 99.7 94 22 130/63 (85) 93 05/25/17 20:00 94 05/25/17 20:00 60 05/25/17 18:07 87 170/92 05/25/17 18:00 97 05/25/17 17:00 55 05/25/17 16:44 93 55 05/25/17 16:00 99.4 117 22 166/92 (116) 97 05/25/17 16:00 117 05/25/17 16:00 100 05/25/17 14:00 103 05/25/17 14:00 100 05/25/17 12:16 92 55 05/26/17 05/27/17 19:00 07:00 Intake Total 100 ml Balance 100 ml IV Total 100 ml Exam CONSTITUTIONAL/GENERAL: This is a morbidly obese, critically ill patient, unresponsive. TUBES/LINES/DRAINS: ETT, OG, right jugular central line, PIV left AC, bilateral soft wrist restraints, Gandhi catheter, SCD's. SKIN: No jaundice, rashes, or lesions. Ecchymoses on upper extremities. No wounds seen anteriorly. Skin temperature appropriate. Not diaphoretic. HEAD: Atraumatic. Normocephalic. EYES: eyes closed. ENT: unable to assess hearing. Nose without bleeding or purulent drainage. Throat difficult to visualize secondary tubes. NECK: Trachea midline. CARDIOVASCULAR: distant heart sounds, irregular RESPIRATORY/CHEST: distant breath sounds, course bilateral breath sounds noted. GASTROINTESTINAL: Abdomen soft, protuberant, bowel sounds present. GENITOURINARY: Without palpable bladder distension. Gandhi catheter in place. MUSCULOSKELETAL: Extremities with edema. No mottling or clubbing. LYMPHATICS: not examined. NEUROLOGICAL: unresponsive. PSYCHIATRIC: sedated. . Diagnostic Tests Laboratory Laboratory Tests Test 05/23/17 17:25 05/24/17 01:50 05/24/17 05:30 05/24/17 09:49 Activated Partial Thromboplast Time 36.5 SEC (24.3-30.1) 38.6 SEC (24.3-30.1) 41.5 SEC (24.3-30.1) White Blood Count 17.2 TH/MM3 (4.0-11.0) Red Blood Count 3.98 MIL/MM3 (4.50-5.90) Hemoglobin 10.8 GM/DL (13.0-17.0) Hematocrit 32.5 % (39.0-51.0) Mean Corpuscular Volume 81.8 FL (80.0-100.0) Mean Corpuscular Hemoglobin 27.2 PG (27.0-34.0) Mean Corpuscular Hemoglobin Concent 33.2 % (32.0-36.0) Red Cell Distribution Width 16.2 % (11.6-17.2) Platelet Count 194 TH/MM3 (150-450) Mean Platelet Volume 9.4 FL (7.0-11.0) Neutrophils (%) (Auto) 84.0 % (16.0-70.0) Lymphocytes (%) (Auto) 3.8 % (9.0-44.0) Monocytes (%) (Auto) 8.7 % (0.0-8.0) Eosinophils (%) (Auto) 3.1 % (0.0-4.0) Basophils (%) (Auto) 0.4 % (0.0-2.0) Neutrophils # (Auto) 14.4 TH/MM3 (1.8-7.7) Lymphocytes # (Auto) 0.7 TH/MM3 (1.0-4.8) Monocytes # (Auto) 1.5 TH/MM3 (0-0.9) Eosinophils # (Auto) 0.5 TH/MM3 (0-0.4) Basophils # (Auto) 0.1 TH/MM3 (0-0.2) CBC Comment DIFF FINAL Differential Comment Blood Urea Nitrogen 38 MG/DL (7-18) Creatinine 1.69 MG/DL (0.60-1.30) Random Glucose 115 MG/DL (74-106) Total Protein 7.0 GM/DL (6.4-8.2) Albumin 2.2 GM/DL (3.4-5.0) Calcium Level 8.0 MG/DL (8.5-10.1) Magnesium Level 2.1 MG/DL (1.5-2.5) Alkaline Phosphatase 110 U/L (45-117) Aspartate Amino Transf (AST/SGOT) 62 U/L (15-37) Alanine Aminotransferase (ALT/SGPT) 28 U/L (12-78) Total Bilirubin 0.8 MG/DL (0.2-1.0) Sodium Level 140 MEQ/L (136-145) Potassium Level 3.8 MEQ/L (3.5-5.1) Chloride Level 107 MEQ/L (98-107) Carbon Dioxide Level 24.9 MEQ/L (21.0-32.0) Anion Gap 8 MEQ/L (5-15) Estimat Glomerular Filtration Rate 43 ML/MIN (>89) Test 05/24/17 15:25 05/25/17 05:50 05/25/17 08:00 05/25/17 21:50 Activated Partial Thromboplast Time 40.6 SEC (24.3-30.1) 48.0 SEC (24.3-30.1) White Blood Count 17.2 TH/MM3 (4.0-11.0) 23.4 TH/MM3 (4.0-11.0) Red Blood Count 4.22 MIL/MM3 (4.50-5.90) 4.43 MIL/MM3 (4.50-5.90) Hemoglobin 11.5 GM/DL (13.0-17.0) 11.7 GM/DL (13.0-17.0) Hematocrit 34.5 % (39.0-51.0) 36.7 % (39.0-51.0) Mean Corpuscular Volume 81.7 FL (80.0-100.0) 82.9 FL (80.0-100.0) Mean Corpuscular Hemoglobin 27.3 PG (27.0-34.0) 26.5 PG (27.0-34.0) Mean Corpuscular Hemoglobin Concent 33.4 % (32.0-36.0) 31.9 % (32.0-36.0) Red Cell Distribution Width 16.2 % (11.6-17.2) 16.4 % (11.6-17.2) Platelet Count 252 TH/MM3 (150-450) 261 TH/MM3 (150-450) Mean Platelet Volume 9.7 FL (7.0-11.0) 9.4 FL (7.0-11.0) Neutrophils (%) (Auto) 84.2 % (16.0-70.0) 84.0 % (16.0-70.0) Lymphocytes (%) (Auto) 3.6 % (9.0-44.0) 6.2 % (9.0-44.0) Monocytes (%) (Auto) 8.8 % (0.0-8.0) 7.6 % (0.0-8.0) Eosinophils (%) (Auto) 3.0 % (0.0-4.0) 1.9 % (0.0-4.0) Basophils (%) (Auto) 0.4 % (0.0-2.0) 0.3 % (0.0-2.0) Neutrophils # (Auto) 14.5 TH/MM3 (1.8-7.7) 19.6 TH/MM3 (1.8-7.7) Lymphocytes # (Auto) 0.6 TH/MM3 (1.0-4.8) 1.4 TH/MM3 (1.0-4.8) Monocytes # (Auto) 1.5 TH/MM3 (0-0.9) 1.8 TH/MM3 (0-0.9) Eosinophils # (Auto) 0.5 TH/MM3 (0-0.4) 0.4 TH/MM3 (0-0.4) Basophils # (Auto) 0.1 TH/MM3 (0-0.2) 0.1 TH/MM3 (0-0.2) CBC Comment DIFF FINAL DIFF FINAL Differential Comment Blood Urea Nitrogen 42 MG/DL (7-18) 50 MG/DL (7-18) Creatinine 1.72 MG/DL (0.60-1.30) 2.03 MG/DL (0.60-1.30) Random Glucose 117 MG/DL (74-106) 218 MG/DL (74-106) Total Protein 7.5 GM/DL (6.4-8.2) 7.6 GM/DL (6.4-8.2) Albumin 2.2 GM/DL (3.4-5.0) 2.1 GM/DL (3.4-5.0) Calcium Level 8.6 MG/DL (8.5-10.1) 9.5 MG/DL (8.5-10.1) Magnesium Level 2.4 MG/DL (1.5-2.5) 3.9 MG/DL (1.5-2.5) Alkaline Phosphatase 156 U/L (45-117) 222 U/L (45-117) Aspartate Amino Transf (AST/SGOT) 90 U/L (15-37) 158 U/L (15-37) Alanine Aminotransferase (ALT/SGPT) 25 U/L (12-78) 52 U/L (12-78) Total Bilirubin 0.9 MG/DL (0.2-1.0) 0.9 MG/DL (0.2-1.0) Sodium Level 141 MEQ/L (136-145) 141 MEQ/L (136-145) Potassium Level 4.5 MEQ/L (3.5-5.1) 4.8 MEQ/L (3.5-5.1) Chloride Level 106 MEQ/L (98-107) 106 MEQ/L (98-107) Carbon Dioxide Level 25.9 MEQ/L (21.0-32.0) 24.5 MEQ/L (21.0-32.0) Anion Gap 9 MEQ/L (5-15) 11 MEQ/L (5-15) Estimat Glomerular Filtration Rate 42 ML/MIN (>89) 35 ML/MIN (>89) Phosphorus Level 8.1 MG/DL (2.5-4.9) Test 05/26/17 04:00 White Blood Count 17.1 TH/MM3 (4.0-11.0) Red Blood Count 4.22 MIL/MM3 (4.50-5.90) Hemoglobin 11.1 GM/DL (13.0-17.0) Hematocrit 34.3 % (39.0-51.0) Mean Corpuscular Volume 81.3 FL (80.0-100.0) Mean Corpuscular Hemoglobin 26.4 PG (27.0-34.0) Mean Corpuscular Hemoglobin Concent 32.5 % (32.0-36.0) Red Cell Distribution Width 16.2 % (11.6-17.2) Platelet Count 228 TH/MM3 (150-450) Mean Platelet Volume 9.3 FL (7.0-11.0) Neutrophils (%) (Auto) 86.3 % (16.0-70.0) Lymphocytes (%) (Auto) 3.1 % (9.0-44.0) Monocytes (%) (Auto) 10.1 % (0.0-8.0) Eosinophils (%) (Auto) 0.2 % (0.0-4.0) Basophils (%) (Auto) 0.3 % (0.0-2.0) Neutrophils # (Auto) 14.8 TH/MM3 (1.8-7.7) Lymphocytes # (Auto) 0.5 TH/MM3 (1.0-4.8) Monocytes # (Auto) 1.7 TH/MM3 (0-0.9) Eosinophils # (Auto) 0.0 TH/MM3 (0-0.4) Basophils # (Auto) 0.0 TH/MM3 (0-0.2) CBC Comment DIFF FINAL Differential Comment Activated Partial Thromboplast Time 39.7 SEC (24.3-30.1) Blood Urea Nitrogen 51 MG/DL (7-18) Creatinine 2.04 MG/DL (0.60-1.30) Random Glucose 114 MG/DL (74-106) Total Protein 7.2 GM/DL (6.4-8.2) Albumin 2.0 GM/DL (3.4-5.0) Calcium Level 8.7 MG/DL (8.5-10.1) Magnesium Level 3.4 MG/DL (1.5-2.5) Alkaline Phosphatase 171 U/L (45-117) Aspartate Amino Transf (AST/SGOT) 150 U/L (15-37) Alanine Aminotransferase (ALT/SGPT) 47 U/L (12-78) Total Bilirubin 0.7 MG/DL (0.2-1.0) Sodium Level 142 MEQ/L (136-145) Potassium Level 5.0 MEQ/L (3.5-5.1) Chloride Level 106 MEQ/L (98-107) Carbon Dioxide Level 25.3 MEQ/L (21.0-32.0) Anion Gap 11 MEQ/L (5-15) Estimat Glomerular Filtration Rate 34 ML/MIN (>89) Result Diagram: 05/26/17 0400 05/26/17 0400 Microbiology Microbiology Date/Time Source Procedure Growth Status 05/25/17 14:15 Bronchial Washings Right Lower Lobe Gram Stain - Final Resulted 05/25/17 14:15 Bronchial Washings Right Lower Lobe Bronchial Culture Pending Resulted 05/25/17 14:15 Bronchial Washings Left Lower Lobe Gram Stain - Final Resulted 05/25/17 14:15 Bronchial Washings Left Lower Lobe Bronchial Culture Pending Resulted 05/24/17 16:20 Sputum Endotracheal Gram Stain - Final Complete 05/24/17 16:20 Sputum Endotracheal Sputum Culture - Final HEAVY GROWTH NORMAL RESPIRATORY KIMBERLY Complete Imaging Last Impressions Chest X-Ray 05/26/17 0600 Signed Impressions: Service Date/Time: Friday, May 26, 2017 04:42 - CONCLUSION: 1. Persistent consolidation left upper and left lower lung. 2. New patchy infiltrates in the right lower lung. Rizwan Barboza MD Chest CT 05/21/17 0000 Signed Impressions: Service Date/Time: May 12:34 - CONCLUSION: 1. Consolidation in the posterior right upper lobe and of lower lobes which could indicate pneumonia. 2. Moderate cardiomegaly coronary artery calcifications. 3. Endotracheal tube and nasogastric tube in place. 4. Status post cholecystectomy. Jas Kelley MD . Procedures * 05/26/17 - V fib arrest 20 - 30 minutes before return of spontaneous circulation * 05/25/17 - bronchoscopy * 05/19/17 - cardiac catheterization * 05/18/17 - intubated/PEA arrest . Patient/Family Conference Present at Family Conference: Met with Yee and 3 of her friends from work. Also present JUNIOR Langley. Family Conference Time (mins): 60 Family Conference Location: Consult Room Issues Discussed: * Palliative care role, purpose, approach * Additional medical, psychosocial, and spiritual history * Patients general health, functional status, and cognitive changes in the months leading up to the current hospitalization * Patient/family understanding of the current medical problems * Patient/family understanding of prognosis * Patients goals of care as best understood from advance directives and/or conversations and/or values * Current medical treatment options and benefits/burdens of those options * Likely scenarios comparing ongoing aggressive care with a transition to comfort measures only * Questions answered to the best of my ability * Palliative care contact information provided * information on indigent burial/cremation and home lists provided per wifes requested In summary, has elected NO CODE status. Certain that the patient would not want continued life-prolonging measures, she has elected to transition to comfort focused care with withdrawal of life support. Anticipatory guidance provided. . Assessment and Plan Disease Oriented Problem List: (1) Respiratory failure with hypoxia and hypercapnia (2) Aspiration into airway (3) Morbid obesity with BMI of 50.0-59.9, adult (4) Systolic heart failure, chronic (5) Difficult airway for intubation (6) JAIMEE (acute kidney injury) (7) VENANCIO (obstructive sleep apnea) (8) Cardiac arrest (9) STEMI (ST elevation myocardial infarction) Symptom Scale: (1) Pain 0-10 Scale: Unable to quantify Comment: History of chronic back and neck pain, sparing oxycodone use prior to admission. (2) Dyspnea 0-10 Scale: Unable to quantify Comment: Remains on mechanical ventilation, high ventilation support. Pertinent Non-Medical Issues Psychosocial: . Spiritual: welcomes storage wharfage clerk support. Legal:Patient is incapacitated to make his own health care decisions, will not regain capacity. No written advance directives. According to [place] statutes , health care proxy decision-making falls to his spouse, Yee. Ethical issues impacting care: no known concerns at this time. . Important Contacts * Yee Black, spouse/HCP: [phone] . Prognosis Very poor prognosis secondary to STEMI, recurrent cardiac arrest/V fib, possible anoxic brain injury, refractory hypoxemia and worsening renal function. Patient is terminal. . Code Status: No Code Plan * Decision Maker: Patient is incapacitated to make his own health care decisions , will not regain capacity. No written advance directives. According to [place] statutes, health care proxy decision-making falls to his spouse, Yee. * NO CODE * Palliative care met with spouse, Yee and 3 of her friends from work. Also present JUNIOR Langley. is certain patient would not want to be artificially prolonged. She knows he would life-prolonging measures to be stopped and him to be allowed to pass peacefully naturally at this time. Anticipatory guidance provided for withdrawal of life support. * Declines hospice services. * Welcomes storage wharfage clerk support, storage wharfage clerk Bandar at bedside. * Provided home list and indigent cremation information per 's request. * Discussed with Dr. Zavaleta and Dr. Taylor. Exhibits B&C on chart for signature. * SYMPTOMS: Pain: patient has chronic neck and back pain, was using sparing oxycodone prior to admission. Dyspnea: requiring high ventilatory support, FI 02 100%, PEEP 14. Orders written for comfort medication in anticipation for transition to comfort measures. * Palliative care number provided. * Palliative care will continue to follow throughout hospital course to assist with symptom management and clarification of goals as needed. . Thank you for the opportunity to participate in the care of Mr. Black. Attestation To help prompt me to consider important information that might be impacting today's encounter and assessment, information from prior notes written by myself or my colleagues may have been "brought forward" into today's note. My signature on this note, however, is an attestation that I personally performed the exam, history, and/or decision-making noted today, and, unless otherwise indicated, the interactions with patient, family, and staff as well as the review of records all occurred today. I also attest that the listed assessment and stated plan reflect my best clinical judgment today based on the combination of historical information, prior notes, and today's exam/ interactions. When time spent is documented, it refers only to time spent today by the signer, or if indicated, combined time spent today by collaborating physician/nurse practitioner. Lucia Lake May 26, 2017 12:32
--- NOTE | 2017-05-26 15:39 | DEATH SUM ---
Summary Demographics Date Pronounced : May 26, 2017 Time Of : 13:11 Preliminary Cause of : Cardiac arrest Julia Zavaleta MD May 26, 2017 15:39
--- NOTE | 2017-05-26 15:43 | HHI.DS ---
Summary Note Date of : May 26, 2017 Time Of : 13:11 Admission Date May 19, 2017 at 00:43 Admitting Diagnosis Respiratory failure, STEMI, CHF exacerbation Diagnosis at Time of : (1) Respiratory failure, acute ICD Code: J96.00 - Acute respiratory failure, unspecified whether with hypoxia or hypercapnia Diagnosis: Principal (2) STEMI (ST elevation myocardial infarction) ICD Code: I21.3 - ST elevation (STEMI) myocardial infarction of unspecified site Diagnosis: Principal (3) Pulmonary edema ICD Code: J81.1 - Chronic pulmonary edema Diagnosis: Principal (4) Acute hypoxemic respiratory failure ICD Code: J96.01 - Acute respiratory failure with hypoxia Diagnosis: Principal (5) Aspiration pneumonia ICD Code: J69.0 - Pneumonitis due to inhalation of food and vomit Diagnosis: Principal (6) V-tach ICD Code: I47.2 - Ventricular tachycardia Diagnosis: Principal (7) Urinary tract infection due to extended-spectrum beta lactamase (ESBL) producing Escherichia coli ICD Code: N39.0 - Urinary tract infection, site not specified; A49.8 - Other bacterial infections of unspecified site; Z16.12 - Extended spectrum beta lactamase (ESBL) resistance Diagnosis: Principal (8) Aspiration into airway ICD Code: T17.908A - Unspecified foreign body in respiratory tract, part unspecified causing other injury, initial encounter Diagnosis: Principal (9) Difficult airway for intubation ICD Code: T88.4XXA - Failed or difficult intubation, initial encounter Diagnosis: Principal (10) JAIMEE (acute kidney injury) ICD Code: N17.9 - Acute kidney failure, unspecified Diagnosis: Principal (11) Encephalopathy acute ICD Code: G93.40 - Encephalopathy, unspecified Diagnosis: Principal (12) Hypertensive emergency ICD Code: I16.1 - Hypertensive emergency Diagnosis: Principal (13) VENANCIO (obstructive sleep apnea) ICD Code: G47.33 - Obstructive sleep apnea (adult) (pediatric) Diagnosis: Secondary (14) Morbid obesity with BMI of 50.0-59.9, adult ICD Code: E66.01 - Morbid (severe) obesity due to excess calories; Z68.43 - Body mass index (BMI) 50-59.9 , adult Diagnosis: Secondary (15) Atrial fibrillation ICD Code: I48.91 - Unspecified atrial fibrillation Diagnosis: Secondary Procedures 05/19 RIJ central line US guided 05/25 Bronchoscopy Brief History 51-year-old morbidly obese male with past history of atrial fibrillation with prior electrical cardioversion, chronic systolic heart failure , chronic neck and back pain, urinary incontinence, asthma/COPD, super morbid obesity who presents to [facility] emergency department after experiencing acute onset of shortness of breath. His is at bedside and states that the he was getting ready to go to bed and began walking and became short of breath and felt like he needed to sit up to breathe. When E VAC arrived he appeared cyanotic and they were unable to obtain sats by pulse ox. They administered albuterol neb, Solu-Medrol, etomidate, Ativan and attempted to intubate. Multiple attempts at endotracheal intubation were unsuccessful so they ultimately placed a Combitube at which point he vomited and went into PEA cardiac arrest. He was administered CPR and epinephrine 2 and had return of spontaneous circulation. He subsequently was in atrial fibrillation with RVR. Combitube was removed and he was reintubated by Dr. Anuja Wilson in the emergency department. She states airway was difficult with minimal mouth opening and that he was ultimately intubated with 4 Mac after multiple unsuccessful attempts with C-Mac. He was started on NTG drip due to hypertension and was started on cardizem drip for A fib RVR with rate 140s, given Lasix 80 mg IV. EKG then showed ST elevation in lead III and AVF and STEMI alert was called. He was subsequently hypoxic and hypercapneic on vent and RT initially tried on Bi-level but PaO2 was 51. Placed on PCV, sedated with propofol, fentanyl and administered paralytic and oxygenation improved adequately for transfer to lab support service tech. He was then handed off to lab support service tech team and underwent SUMI to OM1 per Dr. Iyer. Post cath he was off paralytic and sedation was held. He followed commands with all extremities and thus did not proceed with induced therapeutic hypothermia. CBC/BMP: 05/26/17 0400 05/26/17 0400 Significant Findings Laboratory Tests Test 05/23/17 17:25 05/24/17 01:50 05/24/17 05:30 05/24/17 09:49 Activated Partial Thromboplast Time 36.5 SEC (24.3-30.1) 38.6 SEC (24.3-30.1) 41.5 SEC (24.3-30.1) White Blood Count 17.2 TH/MM3 (4.0-11.0) Red Blood Count 3.98 MIL/MM3 (4.50-5.90) Hemoglobin 10.8 GM/DL (13.0-17.0) Hematocrit 32.5 % (39.0-51.0) Neutrophils (%) (Auto) 84.0 % (16.0-70.0) Lymphocytes (%) (Auto) 3.8 % (9.0-44.0) Monocytes (%) (Auto) 8.7 % (0.0-8.0) Neutrophils # (Auto) 14.4 TH/MM3 (1.8-7.7) Lymphocytes # (Auto) 0.7 TH/MM3 (1.0-4.8) Monocytes # (Auto) 1.5 TH/MM3 (0-0.9) Eosinophils # (Auto) 0.5 TH/MM3 (0-0.4) Blood Urea Nitrogen 38 MG/DL (7-18) Creatinine 1.69 MG/DL (0.60-1.30) Random Glucose 115 MG/DL (74-106) Albumin 2.2 GM/DL (3.4-5.0) Calcium Level 8.0 MG/DL (8.5-10.1) Aspartate Amino Transf (AST/SGOT) 62 U/L (15-37) Estimat Glomerular Filtration Rate 43 ML/MIN (>89) Test 05/24/17 15:25 05/25/17 05:50 05/25/17 08:00 05/25/17 21:50 Activated Partial Thromboplast Time 40.6 SEC (24.3-30.1) 48.0 SEC (24.3-30.1) White Blood Count 17.2 TH/MM3 (4.0-11.0) 23.4 TH/MM3 (4.0-11.0) Red Blood Count 4.22 MIL/MM3 (4.50-5.90) 4.43 MIL/MM3 (4.50-5.90) Hemoglobin 11.5 GM/DL (13.0-17.0) 11.7 GM/DL (13.0-17.0) Hematocrit 34.5 % (39.0-51.0) 36.7 % (39.0-51.0) Neutrophils (%) (Auto) 84.2 % (16.0-70.0) 84.0 % (16.0-70.0) Lymphocytes (%) (Auto) 3.6 % (9.0-44.0) 6.2 % (9.0-44.0) Monocytes (%) (Auto) 8.8 % (0.0-8.0) Neutrophils # (Auto) 14.5 TH/MM3 (1.8-7.7) 19.6 TH/MM3 (1.8-7.7) Lymphocytes # (Auto) 0.6 TH/MM3 (1.0-4.8) Monocytes # (Auto) 1.5 TH/MM3 (0-0.9) 1.8 TH/MM3 (0-0.9) Eosinophils # (Auto) 0.5 TH/MM3 (0-0.4) Blood Urea Nitrogen 42 MG/DL (7-18) 50 MG/DL (7-18) Creatinine 1.72 MG/DL (0.60-1.30) 2.03 MG/DL (0.60-1.30) Random Glucose 117 MG/DL (74-106) 218 MG/DL (74-106) Albumin 2.2 GM/DL (3.4-5.0) 2.1 GM/DL (3.4-5.0) Alkaline Phosphatase 156 U/L (45-117) 222 U/L (45-117) Aspartate Amino Transf (AST/SGOT) 90 U/L (15-37) 158 U/L (15-37) Estimat Glomerular Filtration Rate 42 ML/MIN (>89) 35 ML/MIN (>89) Mean Corpuscular Hemoglobin 26.5 PG (27.0-34.0) Mean Corpuscular Hemoglobin Concent 31.9 % (32.0-36.0) Phosphorus Level 8.1 MG/DL (2.5-4.9) Magnesium Level 3.9 MG/DL (1.5-2.5) Test 05/26/17 04:00 White Blood Count 17.1 TH/MM3 (4.0-11.0) Red Blood Count 4.22 MIL/MM3 (4.50-5.90) Hemoglobin 11.1 GM/DL (13.0-17.0) Hematocrit 34.3 % (39.0-51.0) Mean Corpuscular Hemoglobin 26.4 PG (27.0-34.0) Neutrophils (%) (Auto) 86.3 % (16.0-70.0) Lymphocytes (%) (Auto) 3.1 % (9.0-44.0) Monocytes (%) (Auto) 10.1 % (0.0-8.0) Neutrophils # (Auto) 14.8 TH/MM3 (1.8-7.7) Lymphocytes # (Auto) 0.5 TH/MM3 (1.0-4.8) Monocytes # (Auto) 1.7 TH/MM3 (0-0.9) Activated Partial Thromboplast Time 39.7 SEC (24.3-30.1) Blood Urea Nitrogen 51 MG/DL (7-18) Creatinine 2.04 MG/DL (0.60-1.30) Random Glucose 114 MG/DL (74-106) Albumin 2.0 GM/DL (3.4-5.0) Magnesium Level 3.4 MG/DL (1.5-2.5) Alkaline Phosphatase 171 U/L (45-117) Aspartate Amino Transf (AST/SGOT) 150 U/L (15-37) Estimat Glomerular Filtration Rate 34 ML/MIN (>89) Imaging Chest X-Ray 05/26/17 0600 Signed Impressions: Service Date/Time: Friday, May 26, 2017 04:42 - CONCLUSION: 1. Persistent consolidation left upper and left lower lung. 2. New patchy infiltrates in the right lower lung. Rizwan Barboza MD Chest CT 05/21/17 0000 Signed Impressions: Service Date/Time: May 12:34 - CONCLUSION: 1. Consolidation in the posterior right upper lobe and of lower lobes which could indicate pneumonia. 2. Moderate cardiomegaly coronary artery calcifications. 3. Endotracheal tube and nasogastric tube in place. 4. Status post cholecystectomy. Jas Kelley MD Hospital Course Remarks/Hospital Course 51-year-old morbidly obese male with past history of atrial fibrillation with prior electrical cardioversion, chronic systolic heart failure , chronic neck and back pain, urinary incontinence, asthma/COPD, super morbid obesity who presents to [facility] emergency department after experiencing acute onset of shortness of breath. His is at bedside and states that the he was getting ready to go to bed and began walking and became short of breath and felt like he needed to sit up to breathe. When E PATRICIA arrived he appeared cyanotic and they were unable to obtain sats by pulse ox. They administered albuterol neb, Solu-Medrol, etomidate, Ativan and attempted to intubate. Multiple attempts at endotracheal intubation were unsuccessful so they ultimately placed a Combitube at which point he vomited and went into PEA cardiac arrest. He was administered CPR and epinephrine 2 and had return of spontaneous circulation. He subsequently was in atrial fibrillation with RVR. Combitube was removed and he was reintubated by Dr. Anuja Wilson in the emergency department. She states airway was difficult with minimal mouth opening and that he was ultimately intubated with 4 Mac after multiple unsuccessful attempts with C-Mac. He was started on NTG drip due to hypertension and was started on cardizem drip for A fib RVR with rate 140s, given Lasix 80 mg IV. EKG then showed ST elevation in lead III and AVF and STEMI alert was called. He was subsequently hypoxic and hypercapneic on vent and RT initially tried on Bi-level but PaO2 was 51. Placed on PCV, sedated with propofol, fentanyl and administered paralytic and oxygenation improved adequately for transfer to lab support service tech. He was then handed off to lab support service tech team and underwent SUMI to OM1 per Dr. Iyer. Post cath he was off paralytic and sedation was held. He followed commands with all extremities and thus did not proceed with induced therapeutic hypothermia. 05/20: Remains intubated sedated. CXR shows persistent LLL infiltrate. UTI with ESBL E Coli. Cefepime DC'd and Ertapenem started. FiO2 45%, PEEP at 12. Start weaning. Currently rate controlled on Cardizem infusion. Nicardipine started for blood pressure control. Creat stable at 2.25 05/21: Patient remains critically ill with clinical improvement. FiO2 had to be increased to 85%, PEEP to 12. Chest x-ray shows pulmonary edema and left lower lobe infiltrate. I will get CT of the chest to evaluate infiltrate and assess for need for bronchoscopy. UO 2600 ml with Lasix. Patient was started on ertapenem yesterday for ESBL Escherichia coli-I were changed to meropenem to cover for Pseudomonas and also add Zyvox. Sputum Gram stain shows GPC 05/22: Remains intubated sedated critically ill requiring higher oxygen at 90%. I have increased inspiratory preceptor target tidal volume approximately 650- 700 for lung recruitment. UO adequate, CXR shows pulmonary vascular congestion. IV Lasix increase to 40 mg IV q8hr. 05/23/17: Remains hypoxemic FiO2 at 80% PEEP remains at 12. Chest x-ray still showing evidence of volume overload. Minimize IV infusions, increase Lasix to every 6 hours. 05/24/17: Episode of desaturation requiring oxygen increased to 100%. Currently weaned to 90%. Repeat sputum culture. I have increased PEEP to 14. UO improved with increased Lasix 05/25/17: Remains critical, oxygenation slighlty improved now Fio2 at 60%, but PEEP at 14. Large mucous plug removed by suctioning yesterday. Plan for bronchoscopy today. Developed A. fib with RVR again, no response to IV metoprolol 3. Start back on Cardizem infusion 05/26/17: Developed V FIb arrest yesterday evening. Shocked multiple times, ACLS protocol for approximately 20 min with ROSC. Remains extremely hypoxemic with PEEP 14, FiO2 100%. Remains on amiodarone gtt. DNR now. states that patient never wanted to be supported on machines and may decide to withdraw life support today. Prognosis very poor due to STEMI, with recurrent cardiac arrest/ VFIB, possible anoxic brain injury and refractory hypoxemia. Palliative care consulted and after meeting, decided to withdraw life support. Patient at 1311. Julia Zavaleta MD May 26, 2017 15:43
--- NOTE | 2017-05-26 17:35 | EKG ---
Date Performed: 05/25/2017 Time Performed: 21:05:44 PTAGE: 51 years EKG: Sinus rhythm . Left axis deviation Incomplete LBBB QRS changes V3/V4 may be due to LVH but cannot rule out anterio r infarct Lateral ST-T changes are probably due to ventricular hypertrophy Low QRS voltages in limb l elisabet Abnormal ECG PREVIOUS TRACING : 05/20/2017 05.30 DOCTOR: Alaina Shipley Interpretating Date/Time 05/26/2017 17:27:42
== END 2017-05-26 13:11 | disposition expired | DRG 246 ==
LOC: NEPC 22:35 → NEDA 05-19 00:43 → HCVI 05-19 02:50 → HIMN 05-19 11:45
PROVIDERS: ADMIT Emergency Medicine; ATTEND Emergency Medicine
PROC: 027034Z Dilation of Coronary Artery, One Artery with Drug-eluting Intraluminal Device, Percutaneous Approach (ICD-10-PCS; principal; 2017-05-19)
PROC: 5A1955Z Respiratory Ventilation, Greater than 96 Consecutive Hours (ICD-10-PCS; 2017-05-19)
PROC: 0BH17EZ Insertion of Endotracheal Airway into Trachea, Via Natural or Artificial Opening (ICD-10-PCS; 2017-05-19)
PROC: 4A023N7 Measurement of Cardiac Sampling and Pressure, Left Heart, Percutaneous Approach (ICD-10-PCS; 2017-05-19)
PROC: B2111ZZ Fluoroscopy of Multiple Coronary Arteries using Low Osmolar Contrast (ICD-10-PCS; 2017-05-19)
PROC: 02HV33Z Insertion of Infusion Device into Superior Vena Cava, Percutaneous Approach (ICD-10-PCS; 2017-05-19)
PROC: 0BCB8ZZ Extirpation of Matter from Left Lower Lobe Bronchus, Via Natural or Artificial Opening Endoscopic (ICD-10-PCS; 2017-05-25)
PROC: 0BC68ZZ Extirpation of Matter from Right Lower Lobe Bronchus, Via Natural or Artificial Opening Endoscopic (ICD-10-PCS; 2017-05-25)
DX: I21.19 ST elevation (STEMI) myocardial infarction involving other coronary artery of inferior wall (principal); J69.0 Pneumonitis due to inhalation of food and vomit; A41.9 Sepsis, unspecified organism; I50.23 Acute on chronic systolic (congestive) heart failure; G93.40 Encephalopathy, unspecified; J96.01 Acute respiratory failure with hypoxia; J96.02 Acute respiratory failure with hypercapnia; I47.2 Ventricular tachycardia; I48.1 Persistent atrial fibrillation; Z68.43 Body mass index [BMI] 50.0-59.9, adult; N17.9 Acute kidney failure, unspecified; I13.0 Hypertensive heart and chronic kidney disease with heart failure and stage 1 through stage 4 chronic kidney disease, or unspecified chronic kidney disease; E87.2 Acidosis; N39.0 Urinary tract infection, site not specified; I16.1 Hypertensive emergency; I46.9 Cardiac arrest, cause unspecified; J44.9 Chronic obstructive pulmonary disease, unspecified; E66.01 Morbid (severe) obesity due to excess calories; I25.10 Atherosclerotic heart disease of native coronary artery without angina pectoris; E78.1 Pure hyperglyceridemia; F32.9 Major depressive disorder, single episode, unspecified; K21.9 Gastro-esophageal reflux disease without esophagitis; T88.4XXA Failed or difficult intubation, initial encounter; Z51.5 Encounter for palliative care; N18.9 Chronic kidney disease, unspecified; G47.33 Obstructive sleep apnea (adult) (pediatric); G62.9 Polyneuropathy, unspecified; R73.9 Hyperglycemia, unspecified; T17.990A Other foreign object in respiratory tract, part unspecified in causing asphyxiation, initial encounter; Z66 Do not resuscitate; I49.01 Ventricular fibrillation; M54.2 Cervicalgia; G89.29 Other chronic pain; B96.20 Unspecified Escherichia coli [E. coli] as the cause of diseases classified elsewhere; Z16.12 Extended spectrum beta lactamase (ESBL) resistance; Z87.891 Personal history of nicotine dependence; Z79.82 Long term (current) use of aspirin
CPT/HCPCS: 31500; 31624; 36600; 36620; 51702; 71045; 71250; 80048; 80053; 80061; 80307; 81001; 82550; 82552; 82805; 82948; 83036; 83605; 83735; 83880; 84100; 84484; 85007; 85025; 85027; 85610; 85730; 87040; 87070; 87077; 87086; 87186; 87205; 87641; 87804; 92941; 92950; 93005; 93306; 93458; 94002; 94003; 94640; 94664; 96374; 96375; C1725; C1769; C1874; C1887; C1893; G0481; J0171; J0282; J0330; J0461; J0692; J1335; J1644; J1940; J2020; J2060; J2185; J2250; J3010; J3480; J7030; J7050; J7613; Q9967